=== PATIENT | male | born 1945 | race Caucasian/White ===

== ENCOUNTER → 2020-04-17 08:48 | Outpatient (BNV) | payer MEDICARE, SELFPAY | PROVIDERS: PCP Internal Medicine; Visit Provider Internal Medicine Medical Oncology | DX: C91.10 Chronic lymphocytic leukemia of B-cell type not having achieved remission (principal); Z85.46 Personal history of malignant neoplasm of prostate | CPT/HCPCS: 99212; 99213; 99214 ==

== ENCOUNTER 2020-10-13 08:35 | Outpatient (REF) | payer MEDICARE, SELFPAY ==
[2020-10-13 10:37] LABS: Hematocrit 39.6 % (42-52); Hemoglobin 12.8 g/dl (14.0-18.0); Mean Corpuscular HGB Conc 32.3 g/dl (31.0-36.0); Mean Corpuscular Hemoglobin 31.3 pg (27.0-33.0); Mean Corpuscular Volume 96.8 fL (80-98); Platelet Count 131 X10*3/uL (160-400); Red Blood Count 4.09 X10*6/uL (4.60-5.80); Red Cell Distribution Width 14.3 % (11.0-16.0)
[2020-10-13 10:47] LABS: WBC ABN SCTR FOR CBC 1
[2020-10-13 10:57] LABS: White Blood Count 31.4 X10*3/uL (4.8-10.8)
[2020-10-13 11:12] LABS: Alanine Aminotransferase 14 U/L (0-40); Albumin Level 3.8 g/dL (3.5-5.0); Alkaline Phosphatase 85 U/L (39-117); Anion Gap 11 (12-20); Aspartate Amino Transferase 19 U/L (5-37); Bilirubin Total 0.6 mg/dL (0.0-1.0); Blood Urea Nitrogen 18 mg/dL (9-16); Carbon Dioxide 28 mmol/L (22-29); Chloride 109 mmol/L (96-108); Cholesterol 169 mg/dL; Estimated Glomerular Filt Rate > 60; Glucose Fasting 99 mg/dL (60-99); HDL Cholesterol 32 mg/dL; LDL Cholesterol Calculated 94 mg/dl; Potassium 4.4 mmol/L (3.3-5.1); Sodium 144 mmol/L (135-145); Total Protein 6.2 g/dL (6.5-8.0); Triglycerides 218 mg/dL
[2020-10-13 11:18] LABS: PSA,Total (Free>4and<10) < 0.05 ng/mL (0.00-4.00); T4 Thyroxine 6.2 ug/dL (4.5-12.0); Thyroid Stimulating Hormone 4.36 uIU/mL (0.32-4.0)
[2020-10-13 11:31] LABS: Folate 18.2 ng/mL (> or = 4.0); Vitamin B12 263 pg/mL (200-900)
[2020-10-13 12:41] LABS: Band Neutrophils Percent 3 % (3-5); Basophils Abs Manual 0.3 X10*3/uL (0.0-0.3); Basophils Percent Manual 1 % (0-1); Eosinophils Absolute Manual 0.9 X10*3/UL (0.0-0.8); Eosinophils Percent Manual 3 % (0-4); Lymphocytes Absolute Manual 25.1 X10*3/uL (0.6-4.8); Lymphocytes Percent Manual 80 % (20-40); Monocytes Absolute Manual 0.3 X10*3/uL (0.0-1.2); Monocytes Percent Manual 1 % (2-11); Neutrophils Absolute Manual 4.7 X10*3/uL (2.2-7.9); Neutrophils Percent Manual 12 % (45-73)
[2020-10-13 12:42] LABS: Acanthocytes 1+ (0-2) /OIF; Platelet Estimate SLIGHTLY DECREASED (NORMAL); Platelet Morphology Comment NORMAL; RBC Morphology NOTED; Smudge Cells PRESENT
== END 2020-10-13 08:36 | disposition home or self-care (01) ==
LOC: HO.WFDLDS 08:35
PROVIDERS: Visit Provider Internal Medicine
DX: C91.10 Chronic lymphocytic leukemia of B-cell type not having achieved remission (principal); C61 Malignant neoplasm of prostate; E78.5 Hyperlipidemia, unspecified
CPT/HCPCS: 36415; 80053; 80061; 82607; 82746; 84153; 84436; 84443; 85007; 85027

== ENCOUNTER 2021-05-12 11:42 | Outpatient (REF) | payer MEDICARE, SELFPAY ==
[2021-05-12 13:56] LABS: Free T4 (Free Thyroxine) 0.76 ng/dL (0.71-1.85); Thyroid Stimulating Hormone 4.01 uIU/mL (0.32-4.0)
== END 2021-05-12 11:43 | disposition home or self-care (01) ==
LOC: HO.WFDLDS 11:42
PROVIDERS: Visit Provider Internal Medicine
DX: R94.6 Abnormal results of thyroid function studies (principal)
CPT/HCPCS: 36415; 84439; 84443

== ENCOUNTER 2021-07-07 08:43 | Outpatient (REF) | payer MEDICARE, SELFPAY ==
--- NOTE | 2021-07-07 08:50 | ECG_ITS ---
Test Reason : PREOP Blood Pressure : / mmHG Vent. Rate : 085 BPM Atrial Rate : 085 BPM P-R Int : 172 ms QRS Dur : 096 ms QT Int : 384 ms P-R-T Axes : 064 -39 057 degrees QTc Int : 456 ms Normal sinus rhythm Left axis deviation Abnormal ECG No previous ECGs available Referred By: Sharon Garcia Electronically Signed By:SURI SHEIKH MD
[2021-07-07 10:34] LABS: Hematocrit 38.2 % (42.0-52.0); Hemoglobin 12.5 g/dl (14.0-18.0); Mean Corpuscular HGB Conc 32.7 g/dl (31.0-36.0); Mean Corpuscular Hemoglobin 32.4 pg (27.0-33.0); Mean Platelet Volume 11.8 fL (9.4-12.4); Platelet Count 151 X10*3/uL (160-400); Red Blood Count 3.86 X10*6/uL (4.60-5.80); Red Cell Distribution Width 14.7 % (11.0-16.0)
[2021-07-07 10:35] LABS: Prothrombin Time 11.1 SEC (9.9-13.0)
[2021-07-07 10:38] LABS: Partial Thromboplastin Time 28.8 SEC (24.1-38.0)
[2021-07-07 10:46] LABS: WBC ABN SCTR FOR CBC 1
[2021-07-07 11:02] LABS: Alanine Aminotransferase 16 U/L (0-40); Albumin Level 3.8 g/dL (3.5-5.0); Alkaline Phosphatase 86 U/L (39-117); Anion Gap 16 (12-20); Aspartate Amino Transferase 22 U/L (5-37); Bilirubin Total 0.8 mg/dL (0.0-1.0); Blood Urea Nitrogen 14 mg/dL (9-16); Calcium 8.8 mg/dL (8.4-10.2); Carbon Dioxide 23 mmol/L (22-29); Chloride 109 mmol/L (96-108); Estimated Glomerular Filt Rate > 60; Glucose Random 125 mg/dL (60-115); Potassium 4.5 mmol/L (3.3-5.1); Sodium 143 mmol/L (135-145); Total Protein 6.4 g/dL (6.5-8.0)
[2021-07-07 13:03] LABS: White Blood Count 36.6 X10*3/uL (4.8-10.8)
[2021-07-07 13:08] LABS: Eosinophils Absolute Manual 0.4 X10*3/uL (0.0-0.4); Eosinophils Percent Manual 1 % (0-4); Lymphocytes Absolute Manual 30.7 X10*3/uL (1.2-4.9); Lymphocytes Percent Manual 84 % (20-40); Monocytes Absolute Manual 0.4 X10*3/uL (0.1-1.2); Monocytes Percent Manual 1 % (2-11); Neutrophils Percent Manual 14 % (45-73)
[2021-07-07 13:10] LABS: Platelet Estimate DECREASED (NORMAL)
[2021-07-07 13:11] LABS: RBC Morphology NOTED
[2021-07-07 13:12] LABS: Ovalocytes 1+ (5-14) /OIF; Tear Drop Cells 1+ (0-2) /OIF
[2021-07-07 13:13] LABS: Platelet Morphology Comment NORMAL
[2021-07-07 14:34] LABS: Band Neutrophils Percent 0 % (3-5); Neutrophils Absolute Manual 5.1 X10*3/uL (2.0-8.3)
== END 2021-07-07 08:44 | disposition home or self-care (01) ==
LOC: HO.LAB 08:43
PROVIDERS: PCP Internal Medicine; Visit Provider Nurse Practitioner Family
DX: Z01.818 Encounter for other preprocedural examination (principal); R03.0 Elevated blood-pressure reading, without diagnosis of hypertension
CPT/HCPCS: 36415; 80053; 85007; 85025; 85027; 85610; 85730; 93005

== ENCOUNTER 2021-09-30 10:40 | Outpatient (REF) | payer MEDICARE, SELFPAY ==
[2021-09-30 13:25] LABS: Immature Retic Fraction 21.1 % (2.3-13.4); Retic HGB Equivalent 37.6 pg (30.0-35.0); Reticulocyte Percent 2.8 % (0.5-1.8); Reticulocytes Absolute 0.087 X10*6/uL (0.026-0.095)
[2021-09-30 13:38] LABS: Cholesterol 162 mg/dL; HDL Cholesterol 32 mg/dL; Iron 94 mcg/dL (45-160); LDL Cholesterol Calculated 85 mg/dl; Percent Iron Saturation 29 % (15-50); Total Iron Binding Capacity 324 mcg/dL (228-428); Triglycerides 228 mg/dL; Unsaturated Iron Binding 230 ug/dL
[2021-09-30 13:55] LABS: Uric Acid 4.2 mg/dL (3.4-7.0)
[2021-09-30 14:01] LABS: Ferritin 221 ng/mL (20-250); Free T4 (Free Thyroxine) 0.88 ng/dL (0.71-1.85); PSA,Total (Free>4and<10) < 0.05 ng/mL (0.00-4.00); Thyroid Stimulating Hormone 5.06 uIU/mL (0.32-4.0)
[2021-09-30 14:24] LABS: Folate 15.7 ng/mL (> or = 4.0); Vitamin B12 211 pg/mL (200-900)
== END 2021-09-30 10:41 | disposition home or self-care (01) ==
LOC: HO.WFDLDS 10:40
PROVIDERS: Visit Provider Internal Medicine
DX: Z12.5 Encounter for screening for malignant neoplasm of prostate (principal); E78.00 Pure hypercholesterolemia, unspecified; R79.89 Other specified abnormal findings of blood chemistry; C61 Malignant neoplasm of prostate
CPT/HCPCS: 36415; 80061; 82607; 82728; 82746; 83540; 84153; 84439; 84443; 84550; 85045

== ENCOUNTER 2022-01-27 09:57 | Outpatient (REF) | payer MEDICARE, SELFPAY ==
[2022-01-27 12:44] LABS: Free T4 (Free Thyroxine) 0.88 ng/dL (0.71-1.85); Thyroid Stimulating Hormone 4.36 uIU/mL (0.32-4.0)
== END 2022-01-27 09:58 | disposition home or self-care (01) ==
LOC: HO.WFDLDS 09:57
PROVIDERS: Visit Provider Internal Medicine
DX: R94.6 Abnormal results of thyroid function studies (principal)
CPT/HCPCS: 36415; 84439; 84443

== ENCOUNTER → 2022-03-11 08:42 | Outpatient (BNVA) | payer MEDICARE, SELFPAY | PROVIDERS: PCP Internal Medicine; Referring Provider Internal Medicine; Visit Provider Surgery | DX: R22.42 Localized swelling, mass and lump, left lower limb (principal) | CPT/HCPCS: 99202 ==

== ENCOUNTER 2022-04-30 08:15 | Day surgery (SDC) | payer MEDICARE, SELFPAY ==
[2022-04-26 12:51] VITALS: BMI 41.8
[2022-04-30 08:37] VITALS: BP 157/96; PULSE 88; RESP 20; TEMP 36.1; O2SAT 97
--- NOTE | 2022-04-30 09:04 | ECG_ITS ---
Test Reason : preop Blood Pressure : / mmHG Vent. Rate : 087 BPM Atrial Rate : 087 BPM P-R Int : 186 ms QRS Dur : 102 ms QT Int : 386 ms P-R-T Axes : 027 -36 035 degrees QTc Int : 464 ms Normal sinus rhythm Left axis deviation Minimal voltage criteria for LVH, may be normal variant ( R in aVL ) Abnormal ECG When compared with ECG of 07-JUL-2021 08:53, No significant change was found Referred By: Julieth Monterroso Electronically Signed By:SURI SHEIKH MD
--- NOTE | 2022-04-30 09:19 | HO.ANESPROP2 ---
FORM[facility]LY [facility] Active Problems Active Problems: All Active Problems (Updated 03/11/22 @ 09:15 by Edson Modi MD) Subcutaneous mass of left lower extremity (Acute) Mass of left thigh (Acute) Vitamin B12 deficiency (Acute) History of knee replacement procedure of left knee (Acute) Annual physical exam (Acute) Pre-operative clearance (Acute) Blood pressure elevated without history of HTN (Acute) Osteoarthritis (Acute) Elevated TSH (Acute) Hypercholesterolemia (Acute) Obesity (BMI 30-39.9) (Acute) Chronic lymphocytic leukemia (Acute) Prostate cancer (Acute) Past Medical History Medical History (Updated 03/11/22 @ 09:15 by Edson Modi MD) Actinic keratosis Chronic lymphocytic leukemia Depression Diverticular disease Elevated PSA HTN (hypertension) Hypercholesterolemia 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) Obesity (BMI 30-39.9) Osteoarthritis Plantar fasciitis Prostate cancer Subcutaneous mass of left lower extremity Family History Family History Mother Cardiac disease Father Cirrhosis of liver Sister Neuropathy Hypertension Family history of problems with anesthesia: No Surgical History Surgical History H/O arthroscopic knee surgery H/O submandibular gland removal H/O toe surgery History of knee replacement procedure of left knee Hx of cholecystectomy History of Problems with Anesthesia: No Social History Social History Household Members: Spouse Housing: House Are you a primary laboratory animal care veterinarian to a significant other at home: No Do you presently have visiting nurse or other home services: No Alcohol intake: current Alcohol intake frequency: does not drink Patient Tobacco Use Status: Never used Tobacco e-Cigarette/Vaping Use: Never Used Second Hand Smoke Exposure: No Are you DNR?: No Advance Directives: No Advance Directives Information Provided: Yes Recently lost weight without trying: No Nutrition Risks: No Nutritional Risk service: Yes Current occupational status: retired Current occupation: [employer] Cognitive needs: Yes (walker/cane) Hearing needs: No Vision needs: Yes (glasses) Meds Allergies Allergy/AdvReac Type Severity Reaction Status Date / Time hives Allergy Intermediate chronic Uncoded 03/11/22 08:48 hives of unknown etiology Active Medications: Current Medications Lactated Ringer's (Lr) 1,000 mls @ 50 mls/hr IVCONT .Q20H [facility] Lactated Ringer's (Lr) 1,000 mls @ 50 mls/hr IVCONT .Q20H [facility] Home Medications Medication Instructions Recorded Confirmed Last Taken Type ergocalciferol (vitamin D2) 1,000 1,000 unit PO DAILY 04/17/20 04/26/22 Unknown History unit capsule garlic 2,000 mg PO DAILY 04/17/20 04/26/22 Unknown History vitamin B complex 1 cap PO DAILY 04/17/20 04/26/22 Unknown History Fish Oil 500 mg ONCE 04/23/21 04/26/22 Unknown History multivitamin 1 tab PO DAILY 10/07/21 04/26/22 Unknown History Exam Exam Date and Time: April 30, 2022 0919 Height,Weight and Vital Signs: Height 6 ft Weight 139.706 kg Last Vital Signs Temp 97 F 04/30/22 08:37 Pulse 88 04/30/22 08:37 Resp 20 04/30/22 08:37 BP 157/96 H 04/30/22 08:37 Pulse Ox 97 04/30/22 08:37 O2 Del Method 04/30/22 08:37 Airway Mallampati Class: III TM Dist: >3cm Neck ROM: Full Heart: rrr Lungs: cta bl Assessment and Plan Assessment Anesthesia Assessment: Anesthesia Plan Discussed and Chart Reviewed Final Anesthetic Review Family History of Problems with Anesthesia: No History of Problems with Anesthesia: No NPO: Yes ASA Class: III Final Preanesthetic Review: No Changes in Pt Med Stat, Meds/Allgs Chart Reviewed and Consent Obtained/Reviewed Patient Risk: Intermediate Procedure Risk: Intermediate Anesthetic Plan Anesthetic Plan: GA Disposition: Standard PACU
[2022-04-30] MEDS: Lactated Ringers 1,000 ML 50 ML IVCONT (09:25)
--- NOTE | 2022-04-30 10:33 | MHC.SHP ---
Pre-Procedural Eval Section A Date of Service: 04/30/22 Section B Chief Complaint: Localized swelling, mass and lump, left lower limb Details of Present Illness: has a mass on left medial thigh Relevant Social History: None Present Medications: see Short Stay Collaborative assessment Medical History: Significant History (CLL, HTN OA, hyperlipidemia) Allergies: Allergies Allergy/AdvReac Type Severity Reaction Status Date / Time hives Allergy Intermediate chronic Uncoded 03/11/22 08:48 hives of unknown etiology Review of Systems Sugical H&P ROS: Negative: Constitution, Cardiovascular, Respiratory, Neurological, Psychiatric, Hem-Onc, Allergic/Immunologic, Gastrointestinal, Genitourinary, Musculoskeletal, Integumentary, Endocrine and Eyes/Ears/Nose/Throat Exam Surgical H&P Exam: Normal: HEENT, Normal: Heart, Normal: Lungs, Normal: Abdomen, Normal: Skin and Normal: Neurological and Significant Findings: Extremities (mass on left medial thigh about 4cm) Plan Diagnosis/Plan: Unchanged I have reviewed the history and physical and performed a pertinent physical examination on my patient. No changes have occurred unless specified. Time Spent With Patient Time: Total time managing care of this patient today ____ minutes.
--- NOTE | 2022-04-30 10:48 | MHC.SHP ---
Pre-Procedural Eval Section A Date of Service: 04/30/22 Section B Chief Complaint: Localized swelling, mass and lump, left lower limb Details of Present Illness: subcutaneous mass, medial, 4 cm Relevant Social History: None Present Medications: see Short Stay Collaborative assessment Medical History: Significant History Allergies: Allergies Allergy/AdvReac Type Severity Reaction Status Date / Time hives Allergy Intermediate chronic Uncoded 03/11/22 08:48 hives of unknown etiology Plan I have reviewed the history and physical and performed a pertinent physical examination on my patient. No changes have occurred unless specified. Time Spent With Patient Time: Total time managing care of this patient today ____ minutes.
--- NOTE | 2022-04-30 11:17 | W.PM.OPN ---
Operative Note Operative Note Date of Service: 04/30/22 Narrative: Preop diagnosis: Subcutaneous mass, left thigh Postop diagnosis: The same, with a mass measuring about 3.5 cm in diameter, cystic with a thick capsule Procedure: Excision of large subcutaneous mass, left thigh Surgeon: Edson Modi MD promotions assistant sales marketing: TESSA Hernandez Patient is a 76-year-old male with a large continues mass on the left thigh, about 3.5 cm in diameter. He wanted to proceed with excision. I explained the technique of excision under MAC. He was aware of the risks, benefits, and alternatives. Was brought to the operating room and placed supine with the leg abducted to expose the medial thigh. The area of the mass was prepped and draped. A surgical time-out was done. Lidocaine 1% was used for local anesthesia. I made an incision on the skin overlying this mass using a blade 15. This was carried down with electrocautery through the full-thickness of the skin and subcutaneous fat until I visualized the mass. Sharply dissected the mass off of the rest of the subcutaneous layer. This was spherical in shape and appeared to be a cyst with a large capsule. I had to circumferentially dissect until I was able to deliver this mass. This measured 3.5 cm in diameter. This was sent as a specimen. I closed the subcutaneous layer with Dexon 3-0 interrupted sutures. Skin closure was reviewed nylon 3-0 simple interrupted sutures. The area was infiltrated with Marcaine 0.5% for postop old EMELI. Dressings were applied. The procedure was completed. The patient tolerated the procedure well. There were no immediate complications. Initial and final counts of sponges instruments were correct. Estimated blood loss was less than 5 cc. The patient was transferred to recovery room with stable vital signs.
[2022-04-30 11:35] VITALS: BP 128/59; PULSE 80; RESP 16; TEMP 36.3; O2SAT 99
[2022-04-30 11:50] VITALS: BP 133/63; PULSE 81; RESP 16; O2SAT 99
[2022-04-30 12:05] VITALS: BP 136/69; PULSE 83; RESP 16; TEMP 36.2; O2SAT 96
== END 2022-04-30 12:41 | disposition home or self-care (01) ==
PROVIDERS: PCP Internal Medicine; Visit Provider Surgery
PROC: (CPT 11406; principal; 2022-04-30 10:50)
DX: R22.42 Localized swelling, mass and lump, left lower limb (principal); C91.10 Chronic lymphocytic leukemia of B-cell type not having achieved remission; Z96.652 Presence of left artificial knee joint; L57.0 Actinic keratosis; I10 Essential (primary) hypertension; E78.00 Pure hypercholesterolemia, unspecified; C61 Malignant neoplasm of prostate; E66.9 Obesity, unspecified; Z68.41 Body mass index [BMI] 40.0-44.9, adult; Z90.49 Acquired absence of other specified parts of digestive tract; Z79.899 Other long term (current) drug therapy
CPT/HCPCS: 11406; 12032; 88304; 88305; 88341; 88342; 93005; J0690; J2250; J2795; J3010

== ENCOUNTER → 2022-05-11 13:48 | Outpatient (BNVA) | payer MEDICARE, SELFPAY | PROVIDERS: PCP Internal Medicine; Referring Provider Internal Medicine; Visit Provider Surgery | DX: C91.10 Chronic lymphocytic leukemia of B-cell type not having achieved remission (principal); C61 Malignant neoplasm of prostate | CPT/HCPCS: 99211 ==

== ENCOUNTER → 2022-05-13 12:43 | Outpatient (BNVA) | payer MEDICARE, SELFPAY | PROVIDERS: PCP Internal Medicine; Visit Provider Surgery | DX: Z13.89 Encounter for screening for other disorder (principal) | CPT/HCPCS: 99212 ==

== ENCOUNTER → 2022-05-27 10:26 | Outpatient (BNVA) | payer MEDICARE, SELFPAY | PROVIDERS: PCP Internal Medicine; Referring Provider Internal Medicine; Visit Provider Surgery | DX: R22.42 Localized swelling, mass and lump, left lower limb (principal) | CPT/HCPCS: 10021; 99212 ==

== ENCOUNTER → 2022-06-02 15:03 | Outpatient (BNVA) | payer MEDICARE, SELFPAY | PROVIDERS: PCP Internal Medicine; Visit Provider Surgery | DX: R22.42 Localized swelling, mass and lump, left lower limb (principal) | CPT/HCPCS: 99212 ==

== ENCOUNTER 2022-10-18 09:38 | Outpatient (REF) | payer MEDICARE, SELFPAY ==
[2022-10-18 12:07] LABS: Hematocrit 26.1 % (42.0-52.0); Hemoglobin 7.9 g/dl (14.0-18.0); Immature Retic Fraction 26.9 % (2.3-13.4); Mean Corpuscular HGB Conc 30.3 g/dl (31.0-36.0); Mean Corpuscular Hemoglobin 36.4 pg (27.0-33.0); Mean Platelet Volume 11.3 fL (9.4-12.4); Platelet Count 179 X10*3/uL (160-400); Red Blood Count 2.17 X10*6/uL (4.60-5.80); Red Cell Distribution Width 16.5 % (11.0-16.0); Retic HGB Equivalent 35.5 pg (30.0-35.0); Reticulocytes Absolute 0.151 X10*6/uL (0.026-0.095)
[2022-10-18 12:23] LABS: Alanine Aminotransferase 17 U/L (0-40); Albumin Level 3.7 g/dL (3.5-5.0); Alkaline Phosphatase 78 U/L (39-117); Anion Gap 16 (12-20); Aspartate Amino Transferase 25 U/L (5-37); Bilirubin Total 0.9 mg/dL (0.0-1.0); Blood Urea Nitrogen 16 mg/dL (9-16); Carbon Dioxide 22 mmol/L (22-29); Chloride 109 mmol/L (96-108); Cholesterol 118 mg/dL; Estimated Glomerular Filt Rate > 60; Glucose Random 139 mg/dL (60-115); HDL Cholesterol 27 mg/dL; Iron 109 mcg/dL (45-160); LDL Cholesterol Calculated 55 mg/dl; Percent Iron Saturation 39 % (15-50); Potassium 4.3 mmol/L (3.3-5.1); Sodium 143 mmol/L (135-145); Total Iron Binding Capacity 278 mcg/dL (228-428); Total Protein 6.4 g/dL (6.5-8.0); Triglycerides 184 mg/dL; Unsaturated Iron Binding 169 ug/dL
[2022-10-18 12:25] LABS: PSA,Total (Free>4and<10) < 0.10 ng/mL (0.00-4.00)
[2022-10-18 12:38] LABS: Folate 15.2 ng/mL (> or = 4.0); Mean Corpuscular Volume 120.3 fL (80.0-98.0); Vitamin B12 428 pg/mL (200-900); WBC ABN SCTR FOR CBC 1
[2022-10-18 12:42] LABS: Ferritin 268 ng/mL (20-250); Free T4 (Free Thyroxine) 0.76 ng/dL (0.71-1.85); Thyroid Stimulating Hormone 3.74 uIU/mL (0.32-4.0); White Blood Count 52.9 X10*3/uL (4.8-10.8)
[2022-10-18 13:10] LABS: Band Neutrophils Percent 0 % (3-5); Eosinophils Absolute Manual 0.5 X10*3/uL (0.0-0.4); Eosinophils Percent Manual 1 % (0-4); Lymphocytes Absolute Manual 48.1 X10*3/uL (1.2-4.9); Lymphocytes Percent Manual 91 % (20-40); Neutrophils Absolute Manual 4.2 X10*3/uL (2.0-8.3); Neutrophils Percent Manual 8 % (45-73)
[2022-10-18 13:11] LABS: Macrocytosis 2+ (15-30) /OIF; Platelet Estimate NORMAL (NORMAL); Platelet Morphology Comment NORMAL; RBC Morphology NOTED; Tear Drop Cells 2+ (3-5) /OIF
== END 2022-10-18 09:39 | disposition home or self-care (01) ==
LOC: HO.WFDLDS 09:38
PROVIDERS: Visit Provider Internal Medicine
DX: Z12.5 Encounter for screening for malignant neoplasm of prostate (principal); E78.00 Pure hypercholesterolemia, unspecified; C61 Malignant neoplasm of prostate
CPT/HCPCS: 36415; 80053; 80061; 82607; 82728; 82746; 83540; 84153; 84439; 84443; 85007; 85025; 85027; 85045

== ENCOUNTER 2022-10-22 09:53 | Outpatient (AMB) | payer MEDICARE, SELFPAY ==
[2022-10-22 10:03] VITALS: BP 124/70; PULSE 82; O2SAT 96; BMI 42.4
--- NOTE | 2022-10-22 10:03 | A.OFFPC_ITS ---
Vital Signs 10/22/22 10:03 Height 6 ft Weight 313 lb BMI 42.4 BP 124/70 Blood Pressure Location Lt brachial Position Sitting Pulse 82 Pulse Source Pulse Oximeter Pulse Oximetry (%) 96 Oxygen Delivery Method Room Air Intake Visit Reasons: PE Allergies hives Allergy (Intermediate, Uncoded 10/22/22 10:04) chronic hives of unknown etiology Medication List - Last Reconciled 10/22/22 by Charmaine Salamanca MD cyanocobalamin (vitamin B-12) (Vitamin B-12) 1,000 mcg PO DAILY ergocalciferol (vitamin D2) 1,000 units PO DAILY [Fish Oil 500 mg ONCE] garlic 2,000 mg PO DAILY multivitamin 1 tab PO DAILY Tobacco use date assessed: 10/22/22 Fall risk assessment: No Falls in past year Last assessed Fall Risk: 10/22/22 Dental Screening Dental Screen Date: 10/22/22 Did you have a dental visit in the last 12 months?: Yes Did you have a dental problem in the last 6 months where you did not have access to dental care?: No Was dental information given to patient?: Patient has dentist HPI PE HPI Details 76-year-old obese male with CLL hypercholesterolemia elevated TSH coming in for physical exam p. Last seen January 2022. Patient has a lesion on the left medial thigh that the surgeon is following up on at aspirating. Max blair also follows up Hematology Oncology for the diagnosis of CLL and prostate cancer completed radiotherapy for prostate cancer as for the CLL continuing to monitor if nodes and large can retreat with rituximab PFSH Medical History Actinic keratosis Chronic lymphocytic leukemia Depression Diverticular disease Elevated PSA HTN (hypertension) Hypercholesterolemia 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) Obesity (BMI 30-39.9) Osteoarthritis Plantar fasciitis Prostate cancer Subcutaneous mass of left lower extremity Surgical History H/O arthroscopic knee surgery H/O removal of cyst H/O submandibular gland removal H/O toe surgery History of knee replacement procedure of left knee Hx of biopsy Hx of cholecystectomy Family History Mother Cardiac disease Father Cirrhosis of liver Sister Neuropathy Hypertension Other No family history of cancer Social History (Updated 10/22/22 @ 11:06 by Charmaine Salamanca MD) Household Members: Spouse Housing: House Are you a primary resident care manager to a significant other at home: No Do you presently have visiting nurse or other home services: No Alcohol intake: current Alcohol intake frequency: does not drink Patient Tobacco Use Status: Never used Tobacco e-Cigarette/Vaping Use: Never Used Second Hand Smoke Exposure: No service: Yes Current occupational status: retired Current occupation: Formerly [employer] Cognitive needs: Yes (walker/cane) Hearing needs: No Vision needs: Yes (glasses) Questionnaire PHQ-9 Over the last 2 weeks, how often have you been bothered by any of the following problems? 1. Little interest or pleasure in doing things: not at all 2. Feeling down, depressed, or hopeless: not at all 3. Trouble falling or staying asleep, or sleeping too much: not at all 4. Feeling tired or having little energy: not at all 5. Poor appetite or overeating: not at all 6. Feeling bad about yourself - or that you are a failure or have let yourself or your family down: not at all 7. Trouble concentrating on things, such as reading the newspaper or watching television: not at all 8. Moving or speaking so slowly that other people could have noticed. Or the opposite - being so fidgety or restless that you have been moving around a lot more than usual: not at all 9. Thoughts that you would be better off or of hurting yourself in some way: not at all Total score: 0 Depression Screening Interpretation: Negative Source: Developed by Drs. James Paulino, Mimi Lezama, Andrae Olivera and colleagues, with an educational farooq from [employer]. Thrive Questionnaire Date Thrive assessed: 10/22/22 I am a: Patient What is your living situation today?: I have a steady place to live Within the past 12 months, did the food you bought not last and you didn't have the money to get more?: Never true Within the past 12 months, did you worry whether your food would run out before you got money to buy more?: Never true Do you have trouble paying for medicines?: No Do you have trouble getting transportation to medical appointments?: No Do you have trouble paying your heating and electricity bill?: No Do you have trouble taking care of your child, family member or friend?: No Do you have trouble with day-to-day activities such as bathing, preparing meals, shopping, managing finances, etc.?: No Are you currently unemployed and looking for a job?: No Are you interested in more education?: No Currently or been in a relationship where the following occur: no concerns reported AUDIT C Alcohol Use Questionnaire (AUDIT-C) 1. How often do you have a drink containing alcohol?: Monthly or less 2. How many drinks containing alcohol do you have on a typical day when you are drinking?: 1 or 2 3. How often do you have six or more drinks on one occasion?: Never Total Score: 1 LUBA-7 AMB Questionnaire LUBA-7 Date LUBA - 7 assessed: 10/22/22 Feeling nervous, anxious, or on edge: 0 = Not at all Not being able to stop or control worryin = Not at all Worrying too much about different things: 0 = Not at all Trouble relaxin = Not at all Being so restless that it is hard to sit still: 0 = Not at all Becoming easily annoyed or irritable: 0 = Not at all Feeling afraid as if something awful might happen: 0 = Not at all Total LUBA-7 score (0-4 normal; 5-9 mild; 10-14 moderate; 15-21 severe): 0 Source: Developed by Drs. James Paulino, Mimi Lezama, Andrae Olivera and colleagues, with an educational farooq from [employer]. Review of Systems Const Denies poor appetite and Denies weakness Eyes Denies no additional complaints ENT Reports Normal hearing present, Denies dizziness, Denies nasal congestion, Denies tinnitus and Denies sore throat Card Denies chest pain, Denies syncope, Denies rapid heart rate and Denies dyspnea Resp Denies cough and Denies dyspnea GI Denies change in stool character, Reports constipation, Denies diarrhea, Denies nausea and Denies vomiting Denies dysuria and Denies urinary frequency Neuro Reports Normal hearing present, Denies confusion, Denies dizziness, Denies syncope and Denies weakness Psych Denies confusion Physical exam (Primary Care) Vital Signs: Last Vital Signs Pulse 82 10/22/22 10:03 BP 124/70 10/22/22 10:03 Pulse Ox 96 10/22/22 10:03 Oxygen Delivery Method Room Air 10/22/22 10:03 Care Plan Goal for BP management: guaiac negative no prostate Next steps: Side of the neck has 4 x 3 cm mass left upper thigh a medial tennis ball size mass BMI result Body Mass Index 42.4 Tobacco/Smoking Status: Tobacco use Status Tobacco use date assessed 10/22/22 10/22/22 10:10 Patient Tobacco Use Status Never used Tobacco 10/22/22 11:06 e-Cigarette/Vaping Use Never Used 10/22/22 11:06 PHQ-9: PHQ-9 Score PHQ-9: Total score 0 10/22/22 10:58 Depression Screening Interpretation: Negative Thrive Assessment: Date of Thrive Assessment Date Thrive assessed 10/22/22 10/22/22 10:10 Currently or been in a relationship where the following occur: no concerns reported Const General: No confusion Orientation/consciousness: No confusion HENMT Head: Yes normocephalic Ears: external ears normal and TM's normal bilaterally Face and sinus: Yes normal facial exam Mouth: moist mucous membranes Throat: Yes tonsils normal Eyes Conjunctivae: conjunctivae normal Pupils: Equal, round and reactive pupils present and Pupil accommodation reflex normal Direct Ophthalmoscopy: normal light reflex Neck Neck: No lymphadenopathy Thyroid: Thyroid normal Chest Chest palpation & inspection: normal inspection of the chest Resp Effort & Inspection: normal respiratory effort and no audible wheezes Auscultation: clear to auscultation bilaterally, no crackles, no wheezes and lung sounds not diminished Cardio Rate: regular rate Rhythm: regular rhythm Peripheral pulses: radial pulses present and dorsalis pedis present GI Palpation (GI): no masses Auscultation: normal bowel sounds and normoactive bowel sounds Male General Exam: Yes normal external exam Skin General skin exam: no rashes or lesions noted Rashes: no rashes Neuro General: No confusion Cranial nerves: Yes Equal, round and reactive pupils present and Yes Normal hearing present Cognition (Neuro): normal cognition Gait exam (Neuro): Normal gait present Motor exam (neuro): 5/5 motor strength present throughout Deep tendon reflexes (DTR's): Right brachioradialis reflex intensity grade: 2+, Left brachioradialis reflex intensity grade: 2+, Right patellar reflex intensity grade: 2+ and Left patellar reflex intensity grade: 2+ Extrem General: No edema Results AMB Hemoglobin A1c AMB Hemoglobin A1c 4.1 % Last Edit by Jayleen Nava CMA on 10/22/22 11 :11 Assessment and Plan Assessment & Plan (1) Annual physical exam: Code(s): Z00.00 - Encounter for general adult medical examination without abnormal findings (2) Chronic lymphocytic leukemia: Comment: August 2013 flow cytometry, WBC 2 0 0 a Code(s): C91.10 - Chronic lymphocytic leukemia of B-cell type not having achieved remission Plan: Patient is being followed up by hematology oncology (3) Elevated blood sugar: Code(s): R73.9 - Hyperglycemia, unspecified Plan: Decrease the amount of carbohydrate intake, pasta, bread, rice and potatoes are all sugar and that is aside from all the sweet stuff, remember that fruits are good but they are Sweet also. (4) Mass of left thigh: Code(s): R22.42 - Localized swelling, mass and lump, left lower limb Plan: Patient is being followed up by the surgeon draining it intermittently (5) Hypercholesterolemia: Code(s): E78.00 - Pure hypercholesterolemia, unspecified Plan: Avoid fried foods, chicken skin, eggs, butter margarine, pastries and meat. Be it pork or beef they have a lot of cholesterol LDL goal of less than 130 and triglyceride of less than 150 (6) Obesity (BMI 30-39.9): Code(s): E66.9 - Obesity, unspecified Plan: Diet and exercise (7) Skin cancer: Code(s): C44.90 - Unspecified malignant neoplasm of skin, unspecified (8) Encounter for removal of sutures: Code(s): Z48.02 - Encounter for removal of sutures Plan: RESIDUAL SUTURE in the gluteal area x 2 Orders: Orders AMB Hemoglobin A1c Today Z13.9 - Encounter for screening, unspecified Vitamin B12 and Folate 6 Months R73.9 - Hyperglycemia, unspecified Comprehensive Met. Panel 6 Months R73.9 - Hyperglycemia, unspecified Lipid Panel 6 Months E78.00 - Pure hypercholesterolemia, unspecified Free T4 (Free Thyroxine) 6 Months R73.9 - Hyperglycemia, unspecified Thyroid Stimulating Hormone 6 Months R73.9 - Hyperglycemia, unspecified Complete Blood Count Auto Diff 6 Months R73.9 - Hyperglycemia, unspecified Coding Level of Care Code Est Pt Prev Care >65y(42219) Diagnoses Annual physical exam Z00.00 Chronic lymphocytic leukemia C91.10 Elevated blood sugar R73.9 Mass of left thigh R22.42 Hypercholesterolemia E78.00 Obesity (BMI 30-39.9) E66.9 Skin cancer C44.90 Encounter for removal of sutures Z48.02
== END 2022-10-22 11:30 | disposition home or self-care (01) ==
PROVIDERS: PCP Internal Medicine; Visit Provider Internal Medicine
DX: Z00.00 Encounter for general adult medical examination without abnormal findings (principal); R73.9 Hyperglycemia, unspecified; E66.9 Obesity, unspecified; Z68.41 Body mass index [BMI] 40.0-44.9, adult; E78.00 Pure hypercholesterolemia, unspecified
CPT/HCPCS: 83036; 99397

== ENCOUNTER 2022-11-10 14:47 | Outpatient (AMB) | payer MEDICARE, SELFPAY ==
--- NOTE | 2022-11-10 15:16 | A.OFFVIS_ITS ---
Intake Vital Signs 11/10/22 15:22 Height 6 ft BP 140/66 H Blood Pressure Location Rt brachial Position Sitting Pulse 107 H Intake Visit Reasons: Subcutaneous mass of left lower extremity Intake Note: This patient presents for an assessment for possible aspiratiion for subcutaneous mass of the left lower extremity. Patient c/o; reports no changes. 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 The path report had shown findings consistent with his history of CLL. He also had a seroma that time requiring aspiration. He has been following Dr. Oliva for his CLL. He had been on rituximab chery atment before. He says that he has again has this lump on the left thigh excision site. He denies any pain or any tenderness. He says that this does not bother him. [facility] Medical History Actinic keratosis Chronic lymphocytic leukemia Depression Diverticular disease Elevated PSA HTN (hypertension) Hypercholesterolemia 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) Obesity (BMI 30-39.9) Osteoarthritis Plantar fasciitis Prostate cancer Subcutaneous mass of left lower extremity Surgical History H/O arthroscopic knee surgery H/O removal of cyst H/O submandibular gland removal H/O toe surgery History of knee replacement procedure of left knee Hx of biopsy Hx of cholecystectomy Family History Mother Cardiac disease Father Cirrhosis of liver Sister Neuropathy Hypertension Other No family history of cancer Social History Household Members: Spouse Housing: House Are you a primary care provider to a significant other at home: No Do you presently have visiting nurse or other home services: No Alcohol intake: current Alcohol intake frequency: does not drink Patient Tobacco Use Status: Never used Tobacco e-Cigarette/Vaping Use: Never Used Second Hand Smoke Exposure: No service: Yes Current occupational status: retired Current occupation: [employer] Cognitive needs: Yes (walker/cane) Hearing needs: No Vision needs: Yes (glasses) Review of Systems Const Denies chills and Denies fever(s) Card Denies chest pain, Denies dyspnea and Denies dyspnea on exertion Resp Denies cough, Denies dyspnea and Denies dyspnea on exertion GI Denies hematochezia and Denies change in bowel habits Denies hematuria and Denies difficulty urinating Musc Reports back pain, Reports arthralgias and Reports limited range of motion Neuro Denies focal weakness and Denies convulsions Psych Denies depression and Denies mood swings Physical Exam Vital Signs: Last Vital Signs Pulse 107 H 11/10/22 15:22 BP 140/66 H 11/10/22 15:22 Const General: comfortable and no acute distress Resp Effort & Inspection: normal respiratory effort Cardio Rate: regular rate GI Palpation (GI): Soft to palpation and not firm Extrem Other: Thigh vague mass, about 4 cm in diameter, nonfluctuant, non boggy, nontender, no cellulitis Assessment & Plan Assessment & Plan (1) Mass of left thigh: Code(s): R22.42 - Localized swelling, mass and lump, left lower limb Plan: This is likely part of his CLL based on his previous biopsy. I will not aspirate this at this time. I told him that he may benefit from chemotherapy control his CLL. He is to follow-up with Dr. Oliva therefore. No further surgeries plan for this mass for now. Coding Level of Care Code Est Pt Level 3 (69949) Diagnoses Mass of left thigh R22.42
[2022-11-10 15:22] VITALS: BP 140/66; PULSE 107
== END 2022-11-10 15:29 | disposition home or self-care (01) ==
PROVIDERS: PCP Internal Medicine; Visit Provider Surgery
DX: R22.42 Localized swelling, mass and lump, left lower limb (principal)
CPT/HCPCS: 99213

== ENCOUNTER → 2022-11-10 14:47 | Outpatient (BNVA) | payer MEDICARE, SELFPAY | PROVIDERS: PCP Internal Medicine; Visit Provider Surgery | DX: R22.42 Localized swelling, mass and lump, left lower limb (principal) | CPT/HCPCS: 99212 ==

== ENCOUNTER 2022-12-20 09:30 | Outpatient (REF) | payer MEDICARE, SELFPAY ==
[2022-12-20 11:46] LABS: Hematocrit 33.4 % (42.0-52.0); Hemoglobin 9.6 g/dl (14.0-18.0); Mean Corpuscular HGB Conc 28.7 g/dl (31.0-36.0); Mean Corpuscular Hemoglobin 33.6 pg (27.0-33.0); Mean Platelet Volume 11.6 fL (9.4-12.4); Platelet Count 155 X10*3/uL (160-400); Red Blood Count 2.86 X10*6/uL (4.60-5.80); Red Cell Distribution Width 15.5 % (11.0-16.0)
[2022-12-20 11:49] LABS: Mean Corpuscular Volume 116.8 fL (80.0-98.0); WBC ABN SCTR FOR CBC 1
[2022-12-20 12:05] LABS: Alanine Aminotransferase 16 U/L (0-40); Albumin Level 3.8 g/dL (3.5-5.0); Alkaline Phosphatase 76 U/L (39-117); Anion Gap 14 (12-20); Aspartate Amino Transferase 19 U/L (5-37); Bilirubin Total 0.7 mg/dL (0.0-1.0); Blood Urea Nitrogen 13 mg/dL (9-16); Calcium 9.3 mg/dL (8.4-10.2); Carbon Dioxide 27 mmol/L (22-29); Chloride 106 mmol/L (96-108); Estimated Glomerular Filt Rate > 60; Glucose Random 133 mg/dL (60-115); Lactate Dehydrogenase 219 U/L (118-273); Potassium 4.4 mmol/L (3.3-5.1); Sodium 143 mmol/L (135-145); Total Protein 6.7 g/dL (6.5-8.0)
[2022-12-20 12:22] LABS: Band Neutrophils Percent 0 % (3-5); Lymphocytes Absolute Manual 117.1 X10*3/uL (1.2-4.9); Lymphocytes Percent Manual 96 % (20-40); Neutrophils Absolute Manual 4.9 X10*3/uL (2.0-8.3); Neutrophils Percent Manual 4 % (45-73)
[2022-12-20 12:23] LABS: Platelet Estimate NORMAL (NORMAL); Platelet Morphology Comment NORMAL; RBC Morphology NORMAL; Smudge Cells PRESENT
== END 2022-12-20 09:31 | disposition home or self-care (01) ==
LOC: HO.WFDLDS 09:30
PROVIDERS: Visit Provider Internal Medicine Medical Oncology
DX: C61 Malignant neoplasm of prostate (principal); C91.10 Chronic lymphocytic leukemia of B-cell type not having achieved remission
CPT/HCPCS: 36415; 80053; 83615; 85007; 85027

== ENCOUNTER 2023-03-08 09:39 | Outpatient (REF) | payer MEDICARE, SELFPAY ==
--- NOTE | ~2023-03-08 | US_ITS ---
EXAMINATION: US VENOUS WITH DOPPLER UPPER EXTREMITY, RIGHT CLINICAL INFORMATION: Pain, bruising and swelling of the right upper arm COMPARISON: None available. TECHNIQUE: Ultrasound of the upper extremity is performed using compression sonography and color and pulse Doppler flow with assessment of augmentation of flow. There is also imaging and Doppler assessment of the jugular and subclavian veins. Spectral analysis with color-flow imaging is performed. FINDINGS: Respiratory variation and normal compression are noted throughout the upper extremity including the brachial, basilic, cephalic and radial and ulnar veins. There is normal flow in the internal jugular, subclavian and axillary veins. There is no visible deep or superficial thrombophlebitis. US/US venous duplex UE RT IMPRESSION: No DVT demonstrated in the right upper extremity.
== END 2023-03-08 09:40 | disposition home or self-care (01) ==
LOC: HO.US 09:39
PROVIDERS: PCP Internal Medicine; Visit Provider Internal Medicine Medical Oncology
DX: M79.89 Other specified soft tissue disorders (principal)
CPT/HCPCS: 93971

== ENCOUNTER 2023-03-24 09:04 | Outpatient (REF) | payer MEDICARE, SELFPAY ==
[2023-03-24 11:18] LABS: Hemoglobin 11.9 g/dl (14.0-18.0); Mean Corpuscular HGB Conc 31.3 g/dl (31.0-36.0); Mean Corpuscular Hemoglobin 30.4 pg (27.0-33.0); Mean Corpuscular Volume 96.9 fL (80.0-98.0); Mean Platelet Volume 11.6 fL (9.4-12.4); Platelet Count 181 X10*3/uL (160-400); Red Blood Count 3.92 X10*6/uL (4.60-5.80)
[2023-03-24 12:01] LABS: WBC ABN SCTR FOR CBC 1
[2023-03-24 12:03] LABS: White Blood Count 53.3 X10*3/uL (4.8-10.8)
[2023-03-24 13:06] LABS: Band Neutrophils Percent 2 % (3-5); Lymphocytes Percent Manual 92 % (20-40); Metamyelocytes Absolute 0.5 X10*3/uL; Metamyelocytes Percent 1 %; Monocytes Absolute Manual 0.5 X10*3/uL (0.1-1.2); Monocytes Percent Manual 1 % (2-11); Neutrophils Absolute Manual 3.2 X10*3/uL (2.0-8.3); Neutrophils Percent Manual 4 % (45-73); Platelet Estimate NORMAL (NORMAL); Platelet Morphology Comment NORMAL; RBC Morphology NORMAL; Smudge Cells PRESENT
== END 2023-03-24 09:05 | disposition home or self-care (01) ==
LOC: HO.WFDLDS 09:04
PROVIDERS: Visit Provider Internal Medicine
DX: E78.00 Pure hypercholesterolemia, unspecified (principal); R73.9 Hyperglycemia, unspecified
CPT/HCPCS: 36415; 80053; 80061; 82607; 82746; 84439; 84443; 85007; 85025; 85027

== ENCOUNTER 2023-03-30 09:30 | Outpatient (AMB) | payer MEDICARE, SELFPAY ==
[2023-03-30 09:48] VITALS: BP 148/82; PULSE 75; O2SAT 96; BMI 42.7
--- NOTE | 2023-03-30 09:48 | A.OFFPC_ITS ---
Vital Signs 03/30/23 09:48 Height 6 ft Weight 315 lb BMI 42.7 BP 148/82 H Blood Pressure Location Lt brachial Position Sitting Pulse 75 Pulse Source Pulse Oximeter Pulse Oximetry (%) 96 Oxygen Delivery Method Room Air Intake Visit Reasons: 6 month f/u, rash/redness on right arm Allergies hives Allergy (Intermediate, Uncoded 03/30/23 09:58) chronic hives of unknown etiology Tobacco use date assessed: 03/30/23 Fall risk assessment: No Falls in past year Last assessed Fall Risk: 03/30/23 Dental Screening Dental Screen Date: 03/30/23 Did you have a dental visit in the last 12 months?: Yes Did you have a dental problem in the last 6 months where you did not have access to dental care?: No Was dental information given to patient?: Patient has dentist HPI 6 month f/u HPI Details 77-year-old morbidly obese male with CLL , prostate cancer elevated blood sugar hypercholesterolemia coming in for follow-up. Last seen in October for complete physical. Colonoscopy is up-to-date. Patient continues to follow- up with Hematology-Oncology seen 03/08/2023 concern about the cystic lesion on the left thigh and considering radiation as for the prostate cancer seeing Urology had gold seed implant May 2016. Patient had some right upper arm bruising and had an ultrasound done revealing no DVT. Patient also had some notes from surgeon November 10 has had excision of the subcutaneous mass in the left lower extremity April 2022 showing consistency with CLL PFSH Medical History Actinic keratosis Chronic lymphocytic leukemia Depression Diverticular disease Elevated PSA HTN (hypertension) Hypercholesterolemia 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) Obesity (BMI 30-39.9) Osteoarthritis Plantar fasciitis Prostate cancer Subcutaneous mass of left lower extremity Surgical History H/O arthroscopic knee surgery H/O removal of cyst H/O submandibular gland removal H/O toe surgery History of knee replacement procedure of left knee Hx of biopsy Hx of cholecystectomy Family History Mother Cardiac disease Father Cirrhosis of liver Sister Neuropathy Hypertension Other No family history of cancer Social History Household Members: Spouse Housing: House Are you a primary elderly caregiver to a significant other at home: No Do you presently have visiting nurse or other home services: No Alcohol intake: current Alcohol intake frequency: does not drink Patient Tobacco Use Status: Never used Tobacco e-Cigarette/Vaping Use: Never Used Second Hand Smoke Exposure: No service: Yes Current occupational status: retired Current occupation: [employer] Cognitive needs: Yes (walker/cane) Hearing needs: No Vision needs: Yes (glasses) Questionnaire PHQ-9 Over the last 2 weeks, how often have you been bothered by any of the following problems? 1. Little interest or pleasure in doing things: not at all 2. Feeling down, depressed, or hopeless: not at all 3. Trouble falling or staying asleep, or sleeping too much: not at all 4. Feeling tired or having little energy: not at all 5. Poor appetite or overeating: not at all 6. Feeling bad about yourself - or that you are a failure or have let yourself or your family down: not at all 7. Trouble concentrating on things, such as reading the newspaper or watching television: not at all 8. Moving or speaking so slowly that other people could have noticed. Or the opposite - being so fidgety or restless that you have been moving around a lot more than usual: not at all 9. Thoughts that you would be better off or of hurting yourself in some way: not at all Total score: 0 Depression Screening Interpretation: Negative Depression Screening Done: Yes Source: Developed by Drs. James Paulino, Mimi Lezama, Andrae Olivera and colleagues, with an educational farooq from [employer]. Thrive Questionnaire Date Thrive assessed: 03/30/23 I am a: Patient What is your living situation today?: I have a steady place to live Within the past 12 months, did the food you bought not last and you didn't have the money to get more?: Never true Within the past 12 months, did you worry whether your food would run out before you got money to buy more?: Never true Do you have trouble paying for medicines?: No Do you have trouble getting transportation to medical appointments?: No Do you have trouble paying your heating and electricity bill?: No Do you have trouble taking care of your child, family member or friend?: No Do you have trouble with day-to-day activities such as bathing, preparing meals, shopping, managing finances, etc.?: No Are you currently unemployed and looking for a job?: No Are you interested in more education?: No Currently or been in a relationship where the following occur: no concerns reported AUDIT C Alcohol Use Questionnaire (AUDIT-C) 1. How often do you have a drink containing alcohol?: Monthly or less 2. How many drinks containing alcohol do you have on a typical day when you are drinking?: 1 or 2 3. How often do you have six or more drinks on one occasion?: Never Total Score: 1 LUBA-7 AMB Questionnaire LUBA-7 Date LUBA - 7 assessed: 03/30/23 Feeling nervous, anxious, or on edge: 0 = Not at all Not being able to stop or control worryin = Not at all Worrying too much about different things: 0 = Not at all Trouble relaxin = Not at all Being so restless that it is hard to sit still: 0 = Not at all Becoming easily annoyed or irritable: 0 = Not at all Feeling afraid as if something awful might happen: 0 = Not at all Total LUBA-7 score (0-4 normal; 5-9 mild; 10-14 moderate; 15-21 severe): 0 Source: Developed by Drs. James Paulino, Mimi Lezama, Andrae Olivera and colleagues, with an educational farooq from [employer]. Physical exam (Primary Care) Vital Signs: Last Vital Signs Pulse 75 03/30/23 09:48 BP 148/82 H 03/30/23 09:48 Pulse Ox 96 03/30/23 09:48 Oxygen Delivery Method Room Air 03/30/23 09:48 BMI result Body Mass Index 42.7 Tobacco/Smoking Status: Tobacco use Status Tobacco use date assessed 03/30/23 03/30/23 10:04 Patient Tobacco Use Status Never used Tobacco 03/30/23 09:48 e-Cigarette/Vaping Use Never Used 03/30/23 09:48 PHQ-9: PHQ-9 Score PHQ-9: Total score 0 03/30/23 10:04 Depression Screening Interpretation: Negative Thrive Assessment: Date of Thrive Assessment Date Thrive assessed 03/30/23 03/30/23 10:04 Currently or been in a relationship where the following occur: no concerns reported Const General: alert; No acute distress Eyes Conjunctivae: conjunctivae normal Resp Auscultation: clear to auscultation bilaterally Cardio Rate: regular rate Rhythm: regular rhythm GI Inspection: Yes normal to inspection Extrem General: Yes normal to inspection and No edema Assessment and Plan Assessment & Plan (1) Chronic lymphocytic leukemia: Comment: August 2013 flow cytometry, WBC 2 0 0 a Code(s): C91.10 - Chronic lymphocytic leukemia of B-cell type not having achieved remission Plan: Patient continues to follow-up with Hematology-Oncology on chemotherapy left thigh mass proven CLL after excision considering radiation therapy (2) Prostate cancer: Comment: January 2016 Dr. Thomas baires hormonal and radiation therapy with gold seed placement May 2016 Code(s): C61 - Malignant neoplasm of prostate Plan: Continue to follow-up with PSA testing. (3) Obesity (BMI 30-39.9): Code(s): E66.9 - Obesity, unspecified Plan: Diet and exercise (4) Hypercholesterolemia: Code(s): E78.00 - Pure hypercholesterolemia, unspecified Plan: Avoid fried foods, chicken skin, eggs, butter margarine, pastries and meat. Be it pork or beef they have a lot of cholesterol LDL goal of less than 130 and triglyceride of less than 150 (5) Mass of left thigh: Code(s): R22.42 - Localized swelling, mass and lump, left lower limb Plan: Patient had excision April proven CLL considering radiation from Oncology (6) Impaired fasting blood sugar: Code(s): R73.01 - Impaired fasting glucose Plan: Decrease the amount of carbohydrate intake, pasta, bread, rice and potatoes are all sugar and that is aside from all the sweet stuff, remember that fruits are good but they are Sweet also. Will continue to monitor (7) Peripheral vascular disease: Code(s): I73.9 - Peripheral vascular disease, unspecified Plan: When sitting down elevate the legs, exercise, and support stockings discussed about stockings with support Coding Level of Care Code Est Pt Level 4 (61049) Diagnoses Chronic lymphocytic leukemia C91.10 Prostate cancer C61 Obesity (BMI 30-39.9) E66.9 Hypercholesterolemia E78.00 Mass of left thigh R22.42 Impaired fasting blood sugar R73.01 Peripheral vascular disease I73.9
== END 2023-03-30 11:11 | disposition home or self-care (01) ==
PROVIDERS: PCP Internal Medicine; Visit Provider Internal Medicine
DX: I73.9 Peripheral vascular disease, unspecified (principal); C91.10 Chronic lymphocytic leukemia of B-cell type not having achieved remission; C61 Malignant neoplasm of prostate; Z68.38 Body mass index [BMI] 38.0-38.9, adult; E66.9 Obesity, unspecified; E78.00 Pure hypercholesterolemia, unspecified; R22.42 Localized swelling, mass and lump, left lower limb; R73.01 Impaired fasting glucose
CPT/HCPCS: 99214

== ENCOUNTER 2023-05-10 11:12 | Outpatient (AMB) | payer MEDICARE, SELFPAY ==
--- NOTE | 2023-05-10 11:34 | A.OFFVIS_ITS ---
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 Pt states it started when he started chemotherapy in November 2022 and each month the discoloration has moved up his arm by about 2 inches per month or so. States no pain or discomfort. 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 He has a diagnosis of CLL and prostate cancer which he is receiving chemotherapy for. He reports that when the [place] move therapy originally started he did have a small trash can fall on his hand but does not explain the extreme swelling and bruising that has been going on. He does report that it is progressively traveling up the arm and is at the level of the elbow. Denies any pain discomfort of that upper extremity. He also reports no significant itching of that arm as well. Now presents for vascular evaluation. [facility] Medical History Subcutaneous mass of left lower extremity Diverticular disease Depression Obesity (BMI 30-39.9) Chronic lymphocytic leukemia Plantar fasciitis Actinic keratosis Osteoarthritis Elevated PSA 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) Hypercholesterolemia HTN (hypertension) Prostate cancer Surgical History H/O removal of cyst Hx of biopsy History of knee replacement procedure of left knee H/O toe surgery H/O submandibular gland removal H/O arthroscopic knee surgery Hx of cholecystectomy Family History Mother Cardiac disease Father Cirrhosis of liver Sister Neuropathy Hypertension Other No family history of cancer Social History Household Members: Spouse Housing: House Are you a primary care program director to a significant other at home: No Do you presently have visiting nurse or other home services: No Alcohol intake: current Alcohol intake frequency: does not drink Patient Tobacco Use Status: Never used Tobacco e-Cigarette/Vaping Use: Never Used Second Hand Smoke Exposure: No service: Yes Current occupational status: retired Current occupation: [employer] Cognitive needs: Yes (walker/cane) Hearing needs: No Vision needs: Yes (glasses) Review of Systems Const All systems reviewed & are unremarkable except as noted in HPI and below Reports no additional complaints ENT Reports Normal hearing present Card Denies chest pain, Denies chest pain at rest, Denies chest pain with activity and Denies pedal edema Resp Denies cough GI Denies abdominal pain Musc Denies abnormal gait, Denies muscle cramps and Denies radiating pain into limb Skin/Breast Denies skin ulcer and Denies wounds Neuro Reports Normal hearing present and Denies abnormal gait Psych Reports no additional complaints Physical Exam Vital Signs: BMI result Body Mass Index 42.6 Const General: cooperative, healthy appearing and comfortable Orientation/consciousness: oriented to person, oriented to place and oriented to time HEENT Head: Yes normal to inspection Neck Neck: Yes normal visual inspection Carotids: no bruits Chest Chest palpation & inspection: normal inspection of the chest Resp Effort & Inspection: normal respiratory effort and able to speak in complete sentences Auscultation: clear to auscultation bilaterally, no crackles, no rales, no rhonchi and no wheezes Cardio Rate: regular rate Rhythm: regular rhythm Heart sounds: S1 normal heart sound present and S2 normal heart sound present Bruits: no carotid bruits Peripheral pulses: Peripheral pulses 2+ throughout GI Inspection: Yes normal to inspection Skin Wounds: no wounds Hair: normal Neuro General: oriented to person, oriented to place and oriented to time Cranial nerves: Yes CN's II-XII intact bilaterally and Yes Normal hearing present Cognition (Neuro): normal cognition Motor exam (neuro): 5/5 motor strength present throughout Extrem Other: Right upper extremity demonstrates swelling and edema compared to the left arm. There appears to be an element of dermatitis which is going up the arm. I do not appreciate any compartment fullness. Measurements 5 cm up from the right wrist is in circumference of 12 cm and the widest part of the right upper arm is 16 cm. There is dermatitis extending up to the level of the elbow. General: No clubbing, No cyanosis and No edema Psych Appearance: grossly normal Mental Status: mental status grossly normal Speech and movement: Normal speech and movement present Assessment & Plan Assessment & Plan (1) Swelling of right upper extremity: Code(s): M79.89 - Other specified soft tissue disorders Plan: In short patient has swelling of the right upper extremity. I do believe that there may be a component of dermatitis which he is seeing dermatology for in approximately 2 weeks time. In addition I do feel there is an element of lymphedema of that arm. Although it is not significantly affecting him we have taken measurements. He will follow up with us in 3 months' time. If no significant improvement we may try to get him into a lymphedema pump. Hopefully the dermatitis does improve and Dermatology will hopefully be able to help him out. Once again he does have a 3 month follow-up with us. Thank you for allowing us to assist in his care. Coding Level of Care Code New Pt Level 4 (41371) Diagnoses Swelling of right upper extremity M79.89
[2023-05-10 11:36] VITALS: BMI 42.6
== END 2023-05-10 12:01 | disposition home or self-care (01) ==
LOC: HO.HVS 11:12
PROVIDERS: PCP Internal Medicine; Visit Provider Surgery Vascular Surgery
DX: M79.89 Other specified soft tissue disorders (principal)
CPT/HCPCS: 99203

== ENCOUNTER → 2023-05-10 11:12 | Outpatient (BNVA) | payer MEDICARE, SELFPAY | PROVIDERS: PCP Internal Medicine; Visit Provider Surgery Vascular Surgery | DX: M79.89 Other specified soft tissue disorders (principal) | CPT/HCPCS: 99202 ==

== ENCOUNTER 2023-08-04 13:40 | Outpatient (AMB) | payer MEDICARE, SELFPAY ==
--- NOTE | 2023-08-04 13:41 | A.OFFVIS_ITS ---
Intake Visit Reasons: large mass inside of leg Intake Note: This patient presents for an assessment for a large mass lower extremity. Patient c/o; reports no pain, redness or hot to the touch sensation. Attic Blower Required: No Accompanied by: Spouse Allergies hives Allergy (Intermediate, Uncoded 08/04/23 13:46) chronic hives of unknown etiology Medication List - Last Reconciled 08/04/23 by Edson Modi MD amoxicillin-pot clavulanate 1,000-62.5 mg (Augmentin XR) 1 tab PO Q12H ascorbic acid (vitamin C) (Vitamin C) 250 mg PO Q OTHER DAY cyanocobalamin (vitamin B-12) (Vitamin B-12) 1,000 mcg PO DAILY ergocalciferol (vitamin D2) 1,000 units PO DAILY folic acid 1 mg PO DAILY multivitamin 1 tab PO DAILY zanubrutinib 160 mg (2 x 80 mg) PO BID HPI HPI large mass inside of leg: Details: 77-year-old male with known chronic lymphocytic leukemia, with a left thigh mass. This has been previously excised before and the path report had shown findings consistent with CLL. However, this has occurred and has been steadily becoming bigger despite chemotherapy and radiation to the area. He has been following Dr. Oliva and he was referred to me. The patient says that he wants this mass removed. He says that this has been bothering him because of the increase in size. 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 [facility] Medical History (Updated 08/04/23 @ 14:43 by Edson Modi MD) Mass of thigh Subcutaneous mass of left lower extremity Diverticular disease Depression Obesity (BMI 30-39.9) Chronic lymphocytic leukemia Plantar fasciitis Actinic keratosis Osteoarthritis Elevated PSA 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) Hypercholesterolemia HTN (hypertension) Prostate cancer Surgical History H/O removal of cyst Hx of biopsy History of knee replacement procedure of left knee H/O toe surgery H/O submandibular gland removal H/O arthroscopic knee surgery Hx of cholecystectomy Family History Mother Cardiac disease Father Cirrhosis of liver Sister Neuropathy Hypertension Other No family history of cancer Social History Household Members: Spouse Housing: House Are you a primary nurse behavioral health care to a significant other at home: No Do you presently have visiting nurse or other home services: No Alcohol intake: current Alcohol intake frequency: does not drink Patient Tobacco Use Status: Never used Tobacco e-Cigarette/Vaping Use: Never Used Second Hand Smoke Exposure: No service: Yes Current occupational status: retired Current occupation: [employer] Cognitive needs: Yes (walker/cane) Hearing needs: No Vision needs: Yes (glasses) Review of Systems Const Denies chills and Denies fever(s) Card Denies chest pain, Denies dyspnea and Reports dyspnea on exertion Resp Denies cough, Denies dyspnea and Reports dyspnea on exertion GI Denies hematochezia and Denies change in bowel habits Denies hematuria and Denies difficulty urinating Musc Denies back pain, Reports arthralgias and Reports limited range of motion Neuro Denies focal weakness and Denies convulsions Psych Denies depression and Denies mood swings Physical Exam Const Other: Appears morbidly obese General: comfortable and no acute distress Orientation/consciousness: patient oriented x3 Neck Neck: Yes no lymphadenopathy Resp Auscultation: clear to auscultation bilaterally Cardio Rhythm: regular rhythm GI Palpation (GI): Soft to palpation, nontender and no guarding Neuro General: patient oriented x3 Extrem Other: Large mass on the medial aspect of the left thigh, about 8 cm in widest dimension, spherical, seems to be mobile as well Assessment & Plan Assessment & Plan (1) Mass of thigh: Code(s): R22.40 - Localized swelling, mass and lump, unspecified lower limb Category: Medical Plan: He is this large thigh mass the previous biopsy showing findings consistent with CLL. He has undergone chemotherapy and radiation but this has increased in size. He therefore wants this removed. He says that this is bothering a lot now because of the size I explained the technique of excision which will be done under anesthesia in the OR. I reviewed the risks including but not limited to bleeding, infections, poor healing especially in the background of previous radiation, pain, as well as the benefits and alternatives He wants to proceed He is a practicing [employer]ri[employer] and does not want any chemotherapy by any means. I have discussed the above with Dr. Oliva of Oncology. Coding Level of Care Code Est Pt Level 4 (52544) Diagnoses Mass of thigh R22.40
== END 2023-08-04 14:38 | disposition home or self-care (01) ==
PROVIDERS: PCP Internal Medicine; Visit Provider Surgery
DX: R22.40 Localized swelling, mass and lump, unspecified lower limb (principal)
CPT/HCPCS: 99214

== ENCOUNTER → 2023-08-04 13:40 | Outpatient (BNVA) | payer MEDICARE, SELFPAY | PROVIDERS: PCP Internal Medicine; Visit Provider Surgery | DX: R22.42 Localized swelling, mass and lump, left lower limb (principal); C91.10 Chronic lymphocytic leukemia of B-cell type not having achieved remission | CPT/HCPCS: 99212 ==

== ENCOUNTER 2023-08-23 05:35 | Day surgery (SDC) | payer MEDICARE, SELFPAY ==
[2023-08-16 13:27] VITALS: BP 119/67; PULSE 92; RESP 18; BMI 43.0
--- NOTE | 2023-08-16 14:07 | HO.ANESPROP2 ---
Documented by User: Marii Zaman MD 08/16/23 14:16 [facility] Active Problems Active Problems: All Active Problems Swelling of right upper extremity (Acute) Peripheral vascular disease (Acute) Impaired fasting blood sugar (Acute) Encounter for removal of sutures (Acute) Skin cancer (Acute) Elevated blood sugar (Acute) Mass of left thigh (Acute) Vitamin B12 deficiency (Acute) Annual physical exam (Acute) Pre-operative clearance (Acute) Blood pressure elevated without history of HTN (Acute) Elevated TSH (Acute) Prostate cancer (Acute) Chronic lymphocytic leukemia (Acute) Mass of thigh (Acute) Subcutaneous mass of left lower extremity (Acute) History of knee replacement procedure of left knee (Acute) Osteoarthritis (Acute) Hypercholesterolemia (Acute) Obesity (BMI 30-39.9) (Acute) Past Medical History Medical History (Updated 08/23/23 @ 08:03 by Zayda Bojorquez MD) Anemia Sleep apnea Hx of radiation therapy History of chemotherapy Mass of thigh Subcutaneous mass of left lower extremity Diverticular disease Depression Obesity (BMI 30-39.9) Chronic lymphocytic leukemia Plantar fasciitis Actinic keratosis Osteoarthritis Elevated PSA 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) Hypercholesterolemia HTN (hypertension) Prostate cancer Family History Family History Mother Cardiac disease Father Cirrhosis of liver Sister Neuropathy Hypertension Other No family history of cancer Family history of problems with anesthesia: No Surgical History Surgical History H/O colonoscopy H/O removal of cyst Hx of biopsy History of knee replacement procedure of left knee H/O toe surgery H/O submandibular gland removal H/O arthroscopic knee surgery Hx of cholecystectomy History of Problems with Anesthesia: No Social History Social History Household Members: Spouse Housing: House Are you a primary hospice care transitions coordinator to a significant other at home: No Do you presently have visiting nurse or other home services: No Alcohol intake: current Alcohol intake frequency: does not drink Comment: COUNTS CORRECT Patient Tobacco Use Status: Never used Tobacco e-Cigarette/Vaping Use: Never Used Second Hand Smoke Exposure: No service: Yes Current occupational status: retired Current occupation: [employer] Cognitive needs: Yes (walker/cane) Hearing needs: No Vision needs: Yes (glasses) Meds Allergies Allergy/AdvReac Type Severity Reaction Status Date / Time No Known Allergies Allergy Verified 08/22/23 10:11 Home Medications ?Medication ?Instructions ?Recorded ?Confirmed ?Last Taken ?Type ergocalciferol (vitamin D2) 1,000 1,000 unit PO DAILY 04/17/20 08/22/23 Unknown History unit capsule multivitamin 1 tab PO DAILY 10/07/21 08/22/23 Unknown History cyanocobalamin (vitamin B-12) 1,000 mcg PO DAILY 05/11/22 08/22/23 Unknown History 1,000 mcg tablet (Vitamin B-12) folic acid 1 mg tablet 1 mg PO DAILY 01/10/23 08/22/23 Unknown History Exam Height,Weight and Vital Signs: Height 6 ft Weight 143.789 kg Last Vital Signs Pulse 92 08/16/23 13:27 Resp 18 08/16/23 13:27 BP 119/67 08/16/23 13:27 O2 Del Method Room Air 08/16/23 13:27 Airway Mallampati Class: III TM Dist: >3cm Neck ROM: Full Loose/Missing/Broken Teeth: No Heart: RRR Lungs: CTA Assessment and Plan Assessment Anesthesia Assessment: Anesthesia Plan Discussed and Chart Reviewed Final Anesthetic Review Family History of Problems with Anesthesia: No History of Problems with Anesthesia: No NPO: Yes ASA Class: III Final Preanesthetic Review: Meds/Allgs Chart Reviewed, Consent Obtained/Reviewed and Anes Risks/Benef Reviewed Patient Risk: Intermediate Procedure Risk: Low Documented by User: Serena Maher NP 08/19/23 14:58 HPI - Anesthesia Eval Consult details Narrative: 77yo M for Left Excision Large Mass Thigh PAT eval with Dr Zaman 08/16/2023 [facility] Past Medical History Medical History (Updated 08/23/23 @ 08:03 by Zayda Bojorquez MD) Anemia Sleep apnea Hx of radiation therapy History of chemotherapy Mass of thigh Subcutaneous mass of left lower extremity Diverticular disease Depression Obesity (BMI 30-39.9) Chronic lymphocytic leukemia Plantar fasciitis Actinic keratosis Osteoarthritis Elevated PSA 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) Hypercholesterolemia HTN (hypertension) Prostate cancer Family History Family History Mother Cardiac disease Father Cirrhosis of liver Sister Neuropathy Hypertension Other No family history of cancer Surgical History Surgical History H/O colonoscopy H/O removal of cyst Hx of biopsy History of knee replacement procedure of left knee H/O toe surgery H/O submandibular gland removal H/O arthroscopic knee surgery Hx of cholecystectomy Social History Social History Household Members: Spouse Housing: House Are you a primary hospice care transitions coordinator to a significant other at home: No Do you presently have visiting nurse or other home services: No Alcohol intake: current Alcohol intake frequency: does not drink Comment: COUNTS CORRECT Patient Tobacco Use Status: Never used Tobacco e-Cigarette/Vaping Use: Never Used Second Hand Smoke Exposure: No service: Yes Current occupational status: retired Current occupation: [employer] Cognitive needs: Yes (walker/cane) Hearing needs: No Vision needs: Yes (glasses) Meds Allergies Allergy/AdvReac Type Severity Reaction Status Date / Time No Known Allergies Allergy Verified 08/22/23 10:11 Home Medications ?Medication ?Instructions ?Recorded ?Confirmed ?Last Taken ?Type ergocalciferol (vitamin D2) 1,000 1,000 unit PO DAILY 04/17/20 08/22/23 Unknown History unit capsule multivitamin 1 tab PO DAILY 10/07/21 08/22/23 Unknown History cyanocobalamin (vitamin B-12) 1,000 mcg PO DAILY 05/11/22 08/22/23 Unknown History 1,000 mcg tablet (Vitamin B-12) folic acid 1 mg tablet 1 mg PO DAILY 01/10/23 08/22/23 Unknown History Exam Pertinent Lab Results Pertinent Lab Results: Laboratory Tests 07/19/23 11:02 WBC 23.6 H Hgb 12.5 L Hct 39.5 L Plt Count 170 Sodium 143 Potassium 4.1 Chloride 108 Carbon Dioxide 25 BUN 11 Creatinine 0.83 Narrative Narrative: EKG 2022 Vent. Rate : 087 BPM Atrial Rate : 087 BPM P-R Int : 186 ms QRS Dur : 102 ms QT Int : 386 ms P-R-T Axes : 027 -36 035 degrees QTc Int : 464 ms Normal sinus rhythm Left axis deviation Minimal voltage criteria for LVH, may be normal variant ( R in aVL ) Abnormal ECG When compared with ECG of 07-JUL-2021 08:53, No significant change was found Documented by User: Zayda Bojorquez MD 08/23/23 08:09 [facility] Active Problems Active Problems: All Active Problems Swelling of right upper extremity (Acute)- lymphedema Peripheral vascular disease (Acute) Impaired fasting blood sugar (Acute) Encounter for removal of sutures (Acute) Skin cancer (Acute) Elevated blood sugar (Acute) Mass of left thigh (Acute) Vitamin B12 deficiency (Acute) Annual physical exam (Acute) Pre-operative clearance (Acute) Blood pressure elevated without history of HTN (Acute) Elevated TSH (Acute) Prostate cancer (Acute) Chronic lymphocytic leukemia (Acute) Mass of thigh (Acute) Subcutaneous mass of left lower extremity (Acute) History of knee replacement procedure of left knee (Acute) Osteoarthritis (Acute) Hypercholesterolemia (Acute) Morbid Obesity BMI 45.6 Past Medical History Medical History (Updated 08/23/23 @ 08:03 by Zayda Bojorquez MD) Anemia Sleep apnea Hx of radiation therapy History of chemotherapy Mass of thigh Subcutaneous mass of left lower extremity Diverticular disease Depression Obesity (BMI 30-39.9) Chronic lymphocytic leukemia Plantar fasciitis Actinic keratosis Osteoarthritis Elevated PSA 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) Hypercholesterolemia HTN (hypertension) Prostate cancer Family History Family History Mother Cardiac disease Father Cirrhosis of liver Sister Neuropathy Hypertension Other No family history of cancer Family history of problems with anesthesia: No Surgical History Surgical History H/O colonoscopy H/O removal of cyst Hx of biopsy History of knee replacement procedure of left knee H/O toe surgery H/O submandibular gland removal H/O arthroscopic knee surgery Hx of cholecystectomy History of Problems with Anesthesia: No Social History Social History Household Members: Spouse Housing: House Are you a primary hospice care transitions coordinator to a significant other at home: No Do you presently have visiting nurse or other home services: No Alcohol intake: current Alcohol intake frequency: does not drink Comment: COUNTS CORRECT Patient Tobacco Use Status: Never used Tobacco e-Cigarette/Vaping Use: Never Used Second Hand Smoke Exposure: No service: Yes Current occupational status: retired Current occupation: [employer] Cognitive needs: Yes (walker/cane) Hearing needs: No Vision needs: Yes (glasses) Meds Allergies Allergy/AdvReac Type Severity Reaction Status Date / Time No Known Allergies Allergy Verified 08/22/23 10:11 Home Medications ?Medication ?Instructions ?Recorded ?Confirmed ?Last Taken ?Type ergocalciferol (vitamin D2) 1,000 1,000 unit PO DAILY 04/17/20 08/22/23 Unknown History unit capsule multivitamin 1 tab PO DAILY 10/07/21 08/22/23 Unknown History cyanocobalamin (vitamin B-12) 1,000 mcg PO DAILY 05/11/22 08/22/23 Unknown History 1,000 mcg tablet (Vitamin B-12) folic acid 1 mg tablet 1 mg PO DAILY 01/10/23 08/22/23 Unknown History Exam Height,Weight and Vital Signs: Height 6 ft Weight 152.498kg Last Vital Signs Pulse 92 08/16/23 13:27 Resp 18 08/16/23 13:27 BP 119/67 08/16/23 13:27 O2 Del Method Room Air 08/16/23 13:27 Vital Signs Temp Pulse Resp BP Pulse Ox O2 Del Method 08/23/23 06:29 123/76 08/23/23 06:19 97.8 F 78 20 97 Room Air Pertinent Lab Results Pertinent Lab Results: Laboratory Tests 07/19/23 11:02 WBC 23.6 H Hgb 12.5 L Hct 39.5 L Plt Count 170 Sodium 143 Potassium 4.1 Chloride 108 Carbon Dioxide 25 BUN 11 Creatinine 0.83 Airway Mallampati Class: III TM Dist: >3cm Neck ROM: Full Loose/Missing/Broken Teeth: Yes (Missing teeth top back right. Denies broken or loose teeth) Lungs: CTAB Assessment and Plan Final Anesthetic Review Family History of Problems with Anesthesia: No History of Problems with Anesthesia: No NPO: Yes ASA Class: II and III Final Preanesthetic Review: No Changes in Pt Med Stat, Meds/Allgs Chart Reviewed, Consent Obtained/Reviewed and Anes Risks/Benef Reviewed Patient Risk: Intermediate Procedure Risk: Low Anesthetic Plan Anesthetic Plan: GA Disposition: Standard PACU
[2023-08-23] VITALS (7 sets, daily range): BP systolic 121–146; BP diastolic 76–92; PULSE 72–80; RESP 16–20; TEMP 36.6–36.9; O2SAT 94–97; BMI 45.6
[2023-08-23] MEDS: Lactated Ringers 1,000 ML 100 ML IVCONT (06:36)
--- NOTE | 2023-08-23 07:13 | MHC.SHP ---
Pre-Procedural Eval Section A - 24 Hr Update-Section A only Date of Service: 08/23/23 The patient is an INPATIENT: No Changes since office visit: No Cold of Flu in the past 2 weeks, No New Medical Problems, No Changes in Medication and No Patient answered all questions The patient has been examined within 24 hours of the surgical procedure. The History & Physical has been completed within 30 days and I have reviewed it.: Yes Section B - Complete if H&P > 30 days Chief Complaint: Localized swelling, mass and lump, unspecified low Allergies: Allergies Allergy/AdvReac Type Severity Reaction Status Date / Time No Known Allergies Allergy Verified 08/22/23 10:11 Plan I have reviewed the history and physical and performed a pertinent physical examination on my patient. No changes have occurred unless specified. Time Spent With Patient Time: Total time managing care of this patient today ____ minutes.
--- NOTE | 2023-08-23 08:19 | P.OP_ITS ---
Operative Note Operative Note Date of Service: 08/23/23 Narrative: Preop diagnosis: CLL, with recurrent mass on the left thigh Postop diagnosis: The same Procedure: Excision of large subcutaneous mass on the left thigh Surgeon: Edson Modi MD FINDINGS: Large spherical mass, 10 cm in diameter, well-defined, with smooth surface The patient is a 77-year-old male with known CLL, who had undergone excision of a large mass from the left thigh in 2022. This showed cystic myxoid degeneration with lymphoid aggregates consistent with chronic lymphocytic leukemia. This mass had recurred and the patient had wanted to proceed with excision in view of the large size and associated discomfort. He understood the technique of the procedure as well as the risks, benefits, and alternatives She was brought to the operating room. He was placed supine under general anesthesia via laryngeal mask airway. He was placed in frog-leg position. The mass was noted on the medial aspect of the left thigh proximally. A surgical time-out was done. This area was prepped and draped in the usual sterile fashion. The patient received cefazolin 2 g IV preoperatively I infiltrated the planned line of incision with lidocaine 1%. I made the transverse incision on the skin overlying the large mass using a blade 15. And this was carried down with electrocautery through the full-thickness of the skin and subcutaneous fat until visualize the mass. The mass was well-defined, spher ical, and had what appeared to be a smooth capsule. I did sharp dissection using electrocautery to divide attached subcutaneous tissue surrounding the mass all the way posteriorly and circumferentially and then this entire mass was completely . The mass was spherical and more than 10 cm in widest dimension. I cauterized oozing areas in the subcutaneous space. I irrigated. Once hemost asis was confirmed, I proceeded to reapposed subcutaneous tissue with Polysorb 3-0 interrupted sutures. Skin closure was achieved with nylon 3-0 simple interrupted sutures. The area was then infiltrated with Marcaine 0.5% for postop analgesia Dressings were applied and the procedure was completed The patient tolerated the procedure well. There were no immediate complications. Initial and final counts of sponges and instruments were correct. Estimated blood loss was about 10 cc. The patient was extubated without difficulty and transferred to the recovery room with stable vital signs.
== END 2023-08-23 10:09 | disposition home or self-care (01) ==
PROVIDERS: PCP Internal Medicine; Visit Provider Surgery
PROC: (CPT 27337; principal; 2023-08-23 07:30)
DX: R22.42 Localized swelling, mass and lump, left lower limb (principal); C91.10 Chronic lymphocytic leukemia of B-cell type not having achieved remission; I10 Essential (primary) hypertension; Z79.899 Other long term (current) drug therapy
CPT/HCPCS: 27337; 88304; 88307; J0131; J0690; J1100; J2405; J2704; J2795; J3010

== ENCOUNTER → 2023-08-23 05:35 | Outpatient (BNV) | payer MEDICARE, SELFPAY | PROVIDERS: PCP Internal Medicine; Visit Provider Surgery | DX: R22.42 Localized swelling, mass and lump, left lower limb (principal) | CPT/HCPCS: 27337 ==

== ENCOUNTER 2023-09-01 11:24 | Emergency (ER) | payer MEDICARE, SELFPAY ==
[2023-09-01 11:36] VITALS: BP 158/77; PULSE 81; RESP 18; TEMP 36.9; O2SAT 94; BMI 44.0
--- NOTE | 2023-09-01 11:36 | ED_ITS ---
HPI - General Adult General Chief complaint: Urogenital-Male Stated complaint: blood in urine Time Seen by Provider: 09/01/23 18:13 Source: patient Mode of arrival: ambulatory History of Present Illness ED Provider: Nikita HPI narrative: 77-year-old male with history of prostate cancer status post chemotherapy presents with hematuria x2 days. Denies fever, dysuria, or flank pain. Patient also denies inability to fully empty his bladder. Related Data Home Medications ?Medication ?Instructions ?Recorded ?Confirmed ergocalciferol (vitamin D2) 1,000 1,000 unit PO DAILY 04/17/20 08/22/23 unit capsule multivitamin 1 tab PO DAILY 10/07/21 08/22/23 cyanocobalamin (vitamin B-12) 1,000 mcg PO DAILY 05/11/22 08/22/23 1,000 mcg tablet (Vitamin B-12) folic acid 1 mg tablet 1 mg PO DAILY 01/10/23 08/22/23 Previous Rx's ?Medication ?Instructions ?Recorded zanubrutinib 80 mg capsule 160 mg (2 x 80 mg) PO BID #120 caps 06/04/23 oxycodone-acetaminophen 5 mg-325 1 tab PO Q4-6H PRN pain #20 tabs 08/23/23 mg tablet (Percocet) cephalexin 500 mg capsule 500 mg PO BID #14 caps 09/01/23 Allergies Allergy/AdvReac Type Severity Reaction Status Date / Time No Known Allergies Allergy Verified 09/01/23 11:39 Review of Systems 2 Review of Systems: Yes all other systems are reviewed and are negative Constitutional: Constitutional: Denies fatigue and Denies fever(s) Gastrointestinal: Gastrointestinal: Denies abdominal pain Genitourinary: Genitourinary: Reports hematuria, Denies oliguria, Denies dysuria and Denies flank pain Endocrine: Endocrine: Denies fatigue PMFSH Past Medical History Attestation statement: The following information was validated with the patient. Medical History (Updated 09/01/23 @ 18:35 by TESSA Li) Anemia Sleep apnea Hx of radiation therapy History of chemotherapy Mass of thigh Subcutaneous mass of left lower extremity Diverticular disease Depression Obesity (BMI 30-39.9) Chronic lymphocytic leukemia Plantar fasciitis Actinic keratosis Osteoarthritis Elevated PSA 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) Hypercholesterolemia HTN (hypertension) Prostate cancer Surgical History H/O colonoscopy H/O removal of cyst Hx of biopsy History of knee replacement procedure of left knee H/O toe surgery H/O submandibular gland removal H/O arthroscopic knee surgery Hx of cholecystectomy Family History Family History Mother Cardiac disease Father Cirrhosis of liver Sister Neuropathy Hypertension Other No family history of cancer Social History Social History Household Members: Spouse Housing: House Are you a primary healthcare economics consultant to a significant other at home: No Do you presently have visiting nurse or other home services: No Alcohol intake: current Alcohol intake frequency: does not drink Comment: COUNTS CORRECT Patient Tobacco Use Status: Never used Tobacco e-Cigarette/Vaping Use: Never Used Second Hand Smoke Exposure: No Do you have a plan to hurt others: No Plan service: Yes Current occupational status: retired Current occupation: [employer] Cognitive needs: Yes (walker/cane) Hearing needs: No Vision needs: Yes (glasses) Physical Exam ED Vital Signs: Vital Signs - 24 hr 09/01/23 11:36 09/01/23 18:09 Temperature 98.5 F 98.1 F Pulse Rate 81 76 Respiratory Rate 18 18 Blood Pressure 158/77 H 193/96 H Pulse Oximetry 94 96 Oxygen Delivery Method Room Air Room Air BMI result Body Mass Index 44.0 Const Other: Alert well in appearance Resp Other: Nonlabored respiration Cardio Other: Normal peripheral perfusion GI Other: Abdomen soft, nondistended, obese, no tenderness to palpation no guarding Skin Other: No rash Neuro Other: Alert and oriented x3 Extrem Other: Ambulates with normal steady gait Psych Other: Calm cooperative Course Course Course Narrative: This is an RME: Additional HPI, ROS, PE not included below will be deferred to primary provider. RME assessment and note performed by: Julia Glao PA-C This is a [id number]-male, with a hx of CLL, prostate cancer, hypercholesterolemia, HTN, who presents to the ER with complaints of hematuria since this morning. Had seroma removed on left leg - inner thigh. Plan: Labs, UA Medical Decision Making Medical Decision Making MDM Narrative: 77-year-old male with history of prostate cancer status post chemotherapy presents with hematuria x2 days. Denies fever, dysuria, or flank pain. Patient also denies inability to fully empty his bladder. Problem: Prostate cancer History: Per patient I considered the following differential diagnoses: UTI, urosepsis, renal colic, obstructive uropathy/clot burden need for CBI Plan: Patient's care was initiated in [facility], screening labs and urinalysis are now complete. It is questionable whether he has a UTI, it will reflexively go to culture. We will treat empirically with Keflex. This is not renal colic, the patient has never had any abdominal pain specifically flank pain. This is not urosepsis, the patient is afebrile and hemodynamically stable. Patient is urinating freely, no urinary retention to suggest significant clot burden and need for CBI. No indication for imaging I have independently reviewed the following tests: Labs: Leukocytosis of 18, not anemic, no electrolyte abnormality, questionable UTI Differential Diagnosis Differential Diagnoses: The differential diagnosis associated with the presentation includes UTI, urosepsis, renal colic, obstructive uropathy/clot burden need for CBI Lab Data 09/01/23 17:18 09/01/23 12:19 Labs: Lab Results 09/01/23 09/01/23 Range/Units 12:19 17:18 WBC 18.8 H (4.8-10.8) X10*3/uL RBC 4.40 L (4.60-5.80) X10*6/uL Hgb 12.5 L (14.0-18.0) g/dl Hct 39.6 L (42.0-52.0) % MCV 90.0 (80.0-98.0) fL MCH 28.4 (27.0-33.0) pg MCHC 31.6 (31.0-36.0) g/dl RDW 15.7 (11.0-16.0) % Plt Count 182 (160-400) X10*3/uL MPV 12.2 (9.4-12.4) fL Immature Gran % (Auto) Cancelled Neut % (Auto) Cancelled Lymph % (Auto) Cancelled [place] % (Auto) Cancelled Eos % (Auto) Cancelled Baso % (Auto) Cancelled Lymph # (Auto) Cancelled [place] # (Auto) Cancelled Eos # (Auto) Cancelled Baso # (Auto) Cancelled Abs Immat Gran (auto) Cancelled Absolute Neuts (auto) Cancelled Absolute Nucleated RBC 0.000 (0.0-0.012) X10*3/uL Nucleated RBC % (auto) 0.0 (0.0-0.2) /100WBC Neutrophils % (Manual) 11 L (45-73) % Band Neutrophils % 0 L (3-5) % Lymphocytes % (Manual) 83 H (20-40) % Atypical Lymphs % (Man) 2 (0-6) % Monocytes % (Manual) 1 L (2-11) % Eosinophils % (Manual) 2 (0-4) % Basophils % (Manual) 1 (0-2) % Abs Neuts (Manual) 2.1 (2.0-8.3) X10*3/uL Lymphocytes # (Manual) 15.6 H (1.2-4.9) X10*3/uL Atyp Lymphs # (Manual) 0.4 x10*3/uL Monocytes # (Manual) 0.2 (0.1-1.2) X10*3/uL Eosinophils # (Manual) 0.4 (0.0-0.4) X10*3/uL Basophils # (Manual) 0.2 (0.0-0.2) X10*3/uL [place] Cells PRESENT Platelet Estimate NORMAL (NORMAL) Plt Morphology Comment NORMAL RBC Morphology NOTED Sodium 142 (135-145) mmol/L Potassium 4.5 (3.3-5.1) mmol/L Chloride 107 (96-108) mmol/L Carbon Dioxide 29 (22-29) mmol/L Anion Gap 11 L (12-20) BUN 14 (9-16) mg/dL Creatinine 0.92 (0.5-1.4) mg/dL Estim Creat Clear Calc 103.5 Estimated GFR > 60 Random Glucose 128 H (60-115) mg/dL Calcium 9.1 (8.4-10.2) mg/dL Total Bilirubin 0.7 (0.0-1.0) mg/dL Direct Bilirubin 0.2 (0.0-0.5) mg/dL AST 20 (5-37) U/L ALT 18 (0-40) U/L Alkaline Phosphatase 83 (39-117) U/L Total Protein 6.7 (6.5-8.0) g/dL Albumin 3.9 (3.5-5.0) g/dL Urine Color Yellow Urine Appearance Cloudy Urine pH 5.5 (5.0-9.0) Ur Specific [place] 1.010 (1.005-1.025) Urine Protein Trace (Neg-Trace) mg/dL Urine Glucose (UA) Negative (Negative) mg/dL Urine Ketones Negative (Negative) mg/dL Urine Blood Large (3+) H (Negative) Urine Nitrite Negative (Negative) Ur Leukocyte Esterase Moderate (2+) H (Negative) Urine RBC >20 H (0-2) /HPF Urine WBC 21-50 H (0-5) /HPF Ur Squamous Epith Cells 0-2 (0-2) /HPF Urine Bacteria None Seen (None Seen) Hyaline Casts 0-2 (0-2) /LPF Discharge Plan Discharge Clinical Impression: Acute UTI Patient Disposition: Home, Self-Care Instructions: Urinary Tract Infection in Men (DC) Additional Instructions: You were found to have a urinary tract infection. See home care instructions. Take the Keflex as directed. Follow up with your primary care provider as needed. To note, be mindful of return precautions for inability to fully empty your bladder, if you develop inability to urinate at all, if you begin passing large clots. Any of these symptoms would necessitate further emergent medical assessment. Prescriptions: New cephalexin 500 mg capsule 500 mg PO BID Qty: 14 0RF No Action Vitamin D2 1,000 unit Capsule 1,000 unit PO DAILY cyanocobalamin (vitamin B-12) [Vitamin B-12] 1,000 mcg Tablet 1,000 mcg PO DAILY folic acid 1 mg Tablet 1 mg PO DAILY zanubrutinib 80 mg Capsule 160 mg PO BID Qty: 120 6RF oxycodone-acetaminophen [Percocet] 5-325 mg tablet 1 tab PO Q4-6H PRN (Reason: pain) Qty: 20 0RF Rx Instructions: Partial Fill upon patient request. multivitamin Tablet 1 tab PO DAILY Print Language: Bulgarian
[2023-09-01 12:28] LABS: Appearance Urine Cloudy; Color Urine Yellow; Glucose Urine UA Negative (Negative); Leukocyte Esterase Urine Moderate (2+) (Negative); Nitrite Urine Negative (Negative); PH 5.5 (5.0-9.0); UMIC TRIGGER UACC YES; Urine Blood Large (3+) (Negative); Urine Ketones Negative (Negative); Urine Protein Trace mg/dL (Neg-Trace)
[2023-09-01 12:36] LABS: Bacteria Urine None Seen (None Seen); Hyaline Casts Urine 0-2 /LPF (0-2); RBC Urine >20 /HPF (0-2); Squamous Epithelial Cell Urine 0-2 /HPF (0-2); UACC Culture Trigger YES; WBC Urine 21-50 /HPF (0-5)
[2023-09-01 12:42] LABS: Alanine Aminotransferase 18 U/L (0-40); Albumin Level 3.9 g/dL (3.5-5.0); Alkaline Phosphatase 83 U/L (39-117); Anion Gap 11 (12-20); Aspartate Amino Transferase 20 U/L (5-37); Bilirubin Direct 0.2 mg/dL (0.0-0.5); Bilirubin Total 0.7 mg/dL (0.0-1.0); Blood Urea Nitrogen 14 mg/dL (9-16); Calcium 9.1 mg/dL (8.4-10.2); Carbon Dioxide 29 mmol/L (22-29); Chloride 107 mmol/L (96-108); Creatinine Clr Calc Pharmacy 103.5; Estimated Glomerular Filt Rate > 60; Glucose Random 128 mg/dL (60-115); Potassium 4.5 mmol/L (3.3-5.1); Sodium 142 mmol/L (135-145); Total Protein 6.7 g/dL (6.5-8.0)
[2023-09-01 17:43] LABS: Hematocrit 39.6 % (42.0-52.0); Hemoglobin 12.5 g/dl (14.0-18.0); Mean Corpuscular HGB Conc 31.6 g/dl (31.0-36.0); Mean Corpuscular Hemoglobin 28.4 pg (27.0-33.0); Mean Platelet Volume 12.2 fL (9.4-12.4); Platelet Count 182 X10*3/uL (160-400); Red Cell Distribution Width 15.7 % (11.0-16.0); White Blood Count 18.8 X10*3/uL (4.8-10.8)
[2023-09-01 18:02] LABS: Atypical Lymph Absolute Manual 0.4 x10*3/uL; Atypical Lymphs Percent Manual 2 % (0-6); Basophils Abs Manual 0.2 X10*3/uL (0.0-0.2); Basophils Percent Manual 1 % (0-2); Eosinophils Absolute Manual 0.4 X10*3/uL (0.0-0.4); Eosinophils Percent Manual 2 % (0-4); Lymphocytes Absolute Manual 15.6 X10*3/uL (1.2-4.9); Lymphocytes Percent Manual 83 % (20-40); Monocytes Absolute Manual 0.2 X10*3/uL (0.1-1.2); Monocytes Percent Manual 1 % (2-11); Neutrophils Percent Manual 11 % (45-73)
[2023-09-01 18:03] LABS: Platelet Estimate NORMAL (NORMAL); Platelet Morphology Comment NORMAL; RBC Morphology NOTED; Smudge Cells PRESENT
[2023-09-01 18:05] LABS: Band Neutrophils Percent 0 % (3-5); Neutrophils Absolute Manual 2.1 X10*3/uL (2.0-8.3)
[2023-09-01 18:09] VITALS: BP 193/96; PULSE 76; RESP 18; TEMP 36.7; O2SAT 96
[2023-09-01] MEDS: cephALEXin 500 MG CAPSULE PO (18:40)
[2023-09-01 18:45] VITALS: BP 120/89; PULSE 81; RESP 14; TEMP 37.2; O2SAT 98
== END 2023-09-01 18:46 | disposition home or self-care (01) ==
PROVIDERS: Physician Assistant Medical; Emergency Provider Internal Medicine; PCP Internal Medicine
DX: N39.0 Urinary tract infection, site not specified (principal); B96.89 Other specified bacterial agents as the cause of diseases classified elsewhere; I10 Essential (primary) hypertension; Z85.46 Personal history of malignant neoplasm of prostate; Z92.21 Personal history of antineoplastic chemotherapy
CPT/HCPCS: 36415; 80048; 80076; 81001; 85007; 85027; 87086; 87088; 87186; 99283

== ENCOUNTER 2023-09-05 13:53 | Outpatient (AMB) | payer MEDICARE, SELFPAY ==
[2023-09-05 14:16] VITALS: BMI 44.0
--- NOTE | 2023-09-05 14:16 | MHC.OFFVIS ---
Vital Signs 09/05/23 14:16 Height 6 ft Weight 324 lb 11.854 oz BMI 44.0 Intake Visit Reasons: S/P excision large mass Lt. thigh Intake Note: This patient presents for a follow-up assessment status post excision large mass Left thigh. Patient c/o; reports no complaints. 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 thigh: Details: He underwent excision of a large, recurrent mass from the left medial thigh under anesthesia last 08/23/2023. He tolerated procedure well. 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) Hypercholesterolemia HTN (hypertension) Prostate cancer Surgical History H/O colonoscopy H/O removal of cyst Hx of biopsy History of knee replacement procedure of left knee H/O toe surgery H/O submandibular gland removal H/O arthroscopic knee surgery Hx of cholecystectomy Family History Mother Cardiac disease Father Cirrhosis of liver Sister Neuropathy Hypertension Other No family history of cancer Social History Household Members: Spouse Housing: House Are you a primary wound care physician to a significant other at home: No Do you presently have visiting nurse or other home services: No Alcohol intake: current Alcohol intake frequency: does not drink Comment: COUNTS CORRECT Patient Tobacco Use Status: Never used Tobacco e-Cigarette/Vaping Use: Never Used Second Hand Smoke Exposure: No Advance Directives Date on File: 09/01/20 service: Yes Current occupational status: retired Current occupation: [employer] Cognitive needs: Yes (walker/cane) Hearing needs: No Vision needs: Yes (glasses) Review of Systems Const Denies chills and Denies fever(s) Physical Exam Vital Signs: BMI result Body Mass Index 44.0 Const General: comfortable and no acute distress Extrem Other: Excision site is well healed, not infected, sutures intact Assessment & Plan Assessment & Plan (1) Subcutaneous mass of left lower extremity: Code(s): R22.42 - Localized swelling, mass and lump, left lower limb Category: Medical Plan His incision is well healed. There has no evidence of infection. I removed his sutures. I reinforced the incision with Steri-Strips. He is note of some thick seromatous fluid. I applied dry dressings. His path report shows a pseudocyst with dense fibrous wall, hemorrhoids, fibrinous small lymphocele aggregates compatible with a seroma with CLL. He can follow up on a p.r.n. basis. Coding Level of Care Code Global (51062) Diagnoses Subcutaneous mass of left lower extremity R22.42
== END 2023-09-05 14:29 | disposition home or self-care (01) ==
PROVIDERS: PCP Internal Medicine; Visit Provider Surgery
DX: R22.42 Localized swelling, mass and lump, left lower limb (principal)
CPT/HCPCS: 99024

== ENCOUNTER → 2023-09-05 13:53 | Outpatient (BNVA) | payer MEDICARE, SELFPAY | PROVIDERS: PCP Internal Medicine; Visit Provider Surgery | DX: R22.42 Localized swelling, mass and lump, left lower limb (principal) | CPT/HCPCS: 99212 ==

== ENCOUNTER → 2023-09-12 10:52 | Outpatient (BNVA) | payer MEDICARE, SELFPAY | PROVIDERS: PCP Internal Medicine; Visit Provider Surgery | DX: L76.34 Postprocedural seroma of skin and subcutaneous tissue following other procedure (principal) | CPT/HCPCS: 10160; 99211 ==

== ENCOUNTER 2023-09-19 15:55 | Outpatient (AMB) | payer MEDICARE, SELFPAY ==
[2023-09-19 15:59] VITALS: BMI 44.0
--- NOTE | 2023-09-19 15:59 | A.OFFVIS_ITS ---
Vital Signs 09/19/23 15:59 Height 6 ft Weight 324 lb 11.854 oz BMI 44.0 Intake Visit Reasons: Wound check, swelling, possible aspiration Intake Note: This patient presents for a wound check, swelling. Patient c/o; swelling and needs to be drained . 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 He has been noticing gradual increase in fluid collection in the area. He therefore asked t o be seen. Describes some discomfort because of this fluid collection. 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) Hypercholesterolemia HTN (hypertension) Prostate cancer Surgical History H/O colonoscopy H/O removal of cyst Hx of biopsy History of knee replacement procedure of left knee H/O toe surgery H/O submandibular gland removal H/O arthroscopic knee surgery Hx of cholecystectomy Family History Mother Cardiac disease Father Cirrhosis of liver Sister Neuropathy Hypertension Other No family history of cancer Social History Household Members: Spouse Housing: House Are you a primary rn palliative care to a significant other at home: No Do you presently have visiting nurse or other home services: No Alcohol intake: current Alcohol intake frequency: does not drink Comment: COUNTS CORRECT Patient Tobacco Use Status: Never used Tobacco e-Cigarette/Vaping Use: Never Used Second Hand Smoke Exposure: No Advance Directives Date on File: 09/01/20 service: Yes Current occupational status: retired Current occupation: [employer] [employer] Cognitive needs: Yes (walker/cane) Hearing needs: No Vision needs: Yes (glasses) Review of Systems Const Denies chills and Denies fever(s) Physical Exam Vital Signs: BMI result Body Mass Index 44.0 Const General: comfortable and no acute distress Resp Effort & Inspection: normal respiratory effort Extrem Other: Soft, boggy fluid collection on the excision site on the left thigh medially consistent with a seroma Office Procedures Aspiration of Seroma Details: The area was prepped and draped. I used a gauge 18 needle to aspirate this seromatous fluid. 320 cc of clear seromatous fluid was aspirated I applied dressings. He understands the risk of reaccumulation. He will follow up down the line for this he says. Aspiration of Seroma: [id number] Seroma Aspiration All charges added?: Procedure code (CPT) selection complete Assessment & Plan Assessment & Plan (1) Postprocedural seroma of skin and subcutaneous tissue following other procedure: Code(s): L76.34 - Postprocedural seroma of skin and subcutaneous tissue following other procedure Category: Medical Plan: He has developed a seroma from the excision site. I explained to him it would be best to aspirate this. Aspiration was done in the office in about 320 cc of clear seromatous fluid was aspirated. He tolerated procedure well. He says he will come back to the office if this reaccumulates down the line. There has no evidence of a wound infection. Coding Level of Care Code Procedure Only Diagnoses Postprocedural seroma of skin and subcutaneous tissue following other procedure L76.34 CPT Codes Aspiration of Seroma ([id number])
== END 2023-09-19 16:28 | disposition home or self-care (01) ==
PROVIDERS: PCP Internal Medicine; Visit Provider Surgery
DX: L76.34 Postprocedural seroma of skin and subcutaneous tissue following other procedure (principal); Z48.89 Encounter for other specified surgical aftercare
CPT/HCPCS: 99024

== ENCOUNTER → 2023-09-19 15:55 | Outpatient (BNVA) | payer MEDICARE, SELFPAY | PROVIDERS: PCP Internal Medicine; Visit Provider Surgery | DX: L76.34 Postprocedural seroma of skin and subcutaneous tissue following other procedure (principal) | CPT/HCPCS: 99212 ==

== ENCOUNTER 2023-09-26 14:08 | Outpatient (AMB) | payer MEDICARE, SELFPAY ==
--- NOTE | 2023-09-26 14:12 | MHC.OFFVIS ---
Vital Signs 09/26/23 14:13 Height 6 ft Weight 323 lb 13.745 oz BMI 43.9 Intake Visit Reasons: seroma on thigh Intake Note: This patient presents for a seroma on the thigh, possible aspiration. Patient c/o; reports no complaints. Regulatory Consultant Required: No Accompanied by: Self / Same As Patient Allergies No Known Allergies Allergy (Verified 09/19/23 16:05) Medication List - Last Reconciled 09/26/23 by Edson Modi MD cyanocobalamin (vitamin B-12) (Vitamin B-12) 1,000 mcg PO DAILY ergocalciferol (vitamin D2) 1,000 units PO DAILY folic acid 1 mg PO DAILY multivitamin 1 tab PO DAILY zanubrutinib 160 mg (2 x 80 mg) PO BID HPI HPI seroma on thigh: Details: He is here for follow-up for his seroma. He had undergone excision of a subcutaneous mass from the left medial thigh last month. He had developed a seroma and had aspirated this last week He said he has had some slow accumulation of fluid and he wants this we aspirated because of discomfort. He feels well overall. 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) Hypercholesterolemia HTN (hypertension) Prostate cancer Surgical History H/O colonoscopy H/O removal of cyst Hx of biopsy History of knee replacement procedure of left knee H/O toe surgery H/O submandibular gland removal H/O arthroscopic knee surgery Hx of cholecystectomy Family History Mother Cardiac disease Father Cirrhosis of liver Sister Neuropathy Hypertension Other No family history of cancer Social History Household Members: Spouse Housing: House Are you a primary neonatal intensive care nurse to a significant other at home: No Do you presently have visiting nurse or other home services: No Alcohol intake: current Alcohol intake frequency: does not drink Comment: COUNTS CORRECT Patient Tobacco Use Status: Never used Tobacco e-Cigarette/Vaping Use: Never Used Second Hand Smoke Exposure: No Advance Directives Date on File: 09/01/20 service: Yes Current occupational status: retired Current occupation: [employer] Cognitive needs: Yes (walker/cane) Hearing needs: No Vision needs: Yes (glasses) Review of Systems Const Denies chills and Denies fever(s) Card Denies chest pain Resp Denies cough GI Denies abdominal pain Physical Exam Vital Signs: BMI result Body Mass Index 43.9 Const General: comfortable and no acute distress Resp Effort & Inspection: normal respiratory effort Cardio Rate: regular rate Extrem Other: Soft, boggy mass on the left medial thigh from her previous excision Office Procedures FNAB Details: He was placed in reclining position with the left leg abducted. The area of the seroma was prepped and draped. I used a gauge 18 needle to aspirate the fluid. Serosanguineous fluid was removed. About 280 cc of this was aspirated He tolerated procedure well. Informed consent given: Yes Anesthesia: none Needle size: 18 G Aspiration content: other (Serosanguineous) Patient tolerated procedure: well Complications: No Assessment & Plan Assessment & Plan (1) Postprocedural seroma of skin and subcutaneous tissue following other procedure: Code(s): L76.34 - Postprocedural seroma of skin and subcutaneous tissue following other procedure Category: Medical Plan: I aspirated this and about 280 cc of seromatous fluid was evacuated. I told him that this may continue to reaccumulate down the line. If he gets uncomfortable with the fluid collection, he is welcome to come back to the office to have we aspiration He has comfortable with the plan. Coding Level of Care Code Procedure Only Diagnoses Postprocedural seroma of skin and subcutaneous tissue following other procedure L76.34
[2023-09-26 14:13] VITALS: BMI 43.9
== END 2023-09-26 14:57 | disposition home or self-care (01) ==
PROVIDERS: PCP Internal Medicine; Visit Provider Surgery
DX: L76.34 Postprocedural seroma of skin and subcutaneous tissue following other procedure (principal)
CPT/HCPCS: 99024

== ENCOUNTER → 2023-09-26 14:08 | Outpatient (BNVA) | payer MEDICARE, SELFPAY | PROVIDERS: PCP Internal Medicine; Visit Provider Surgery | DX: L76.34 Postprocedural seroma of skin and subcutaneous tissue following other procedure (principal) | CPT/HCPCS: 10160; 99212 ==

== ENCOUNTER 2023-09-30 10:38 | Outpatient (AMB) | payer MEDICARE, SELFPAY ==
--- NOTE | 2023-09-30 10:42 | MHC.OFFVIS ---
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 Patient expresses he has been having this on going problem for about 3 months. When he makes a fist and opens his left hand back up his middle finger locks in place and he says he has to manually assist it to straighten out. He does not have pain but states it is a bother to him. Denies recent injury, numbness and tingling. 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 Patient reports that this has been ongoing for 2-3 months. Patient reports consistent locking and catching, not associated with pain. Patient states that this has become more persistent and bothersome over this time period. Patient reports no numbness or tingling in his L hand at this time. No other acute complaints at this time. 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) Hypercholesterolemia HTN (hypertension) Prostate cancer Surgical History H/O colonoscopy H/O removal of cyst Hx of biopsy History of knee replacement procedure of left knee H/O toe surgery H/O submandibular gland removal H/O arthroscopic knee surgery Hx of cholecystectomy Family History Mother Cardiac disease Father Cirrhosis of liver Sister Neuropathy Hypertension Other No family history of cancer Social History Household Members: Spouse Housing: House Are you a primary healthcare or medical to a significant other at home: No Do you presently have visiting nurse or other home services: No Alcohol intake: current Alcohol intake frequency: does not drink Comment: COUNTS CORRECT Patient Tobacco Use Status: Never used Tobacco e-Cigarette/Vaping Use: Never Used Second Hand Smoke Exposure: No Advance Directives Date on File: 09/01/20 service: Yes Current occupational status: retired Current occupation: [employer] Cognitive needs: Yes (walker/cane) Hearing needs: No Vision needs: Yes (glasses) Review of Systems Const All systems reviewed & are unremarkable except as noted in HPI and below Physical Exam Const Other: Patient is alert, oriented, cooperative, and in no acute distress HEENT Head: Yes normocephalic and Yes atraumatic Resp Effort & Inspection: normal respiratory effort and able to speak in complete sentences Cardio Jugular venous distension: no JVD Neuro General: gait normal Cognition (Neuro): normal cognition Extrem Other: Patient is alert, oriented, and in no acute distress. Neuro: Median, ulnar, radial nerves motor and sensory intact and sensation is normal to the tips of all digits. Vascular: Cap refill brisk Pain: Patient reports mild tenderness to palpation over the A1 prema of the L MF ROM: Visible and palpable locking and catching of the left middle finger, requiring passive extension Skin: No lacerations or abrasions. General: No ecchymosis, erythema, or evidence of infection. Psych: Appears grossly normal Affect normal Attitude cooperative Psych Appearance: grossly normal Mental Status: mental status grossly normal Office Procedures Injection-Therapetic Trigger Single Point: 90743-Rzfoxax point injection, 1 or 2 Left middle trigger finger injection Assessment & Plan Assessment & Plan (1) Trigger finger, left middle finger: Code(s): M65.332 - Trigger finger, left middle finger Category: Medical Plan 1. Trigger finger, left middle finger Treatment options were discussed with the patient today Patient would like to proceed with a steroid injection at this time The risks and benefits of a steroid injection including but not limited to risk of damage to blood vessels, nerves, tendons, infection, skin bleaching, failure to improve symptoms, increased pain, and possible need for further injections or other intervention were discussed with the patient and the patient wishes to proceed with the steroid injection. Once consent was obtained, I sterilely prepped the area over the A1 prema of the flexor tendon sheath of the left middle finger. I then injected the flexor tendon sheath with a combination of 1 mL of dexamethasone (4mg/ml), and 1% lidocaine. The patient tolerated the procedure well with no complications. If the patient continues to have locking and catching 4-6 weeks following this injection, they may call to schedule appointment to discuss alternative treatment options Follow-up prn Coding Level of Care Code New Pt Level 3 (73802) Diagnoses Trigger finger, left middle finger M65.332 CPT Codes Details - Trigger Single Point: 29779-Omgrlbq point injection, 1 or 2 ([id number])
== END 2023-09-30 11:22 | disposition home or self-care (01) ==
PROVIDERS: PCP Internal Medicine
DX: M65.332 Trigger finger, left middle finger (principal)
CPT/HCPCS: 20550; 99203

== ENCOUNTER → 2023-09-30 10:38 | Outpatient (BNVA) | payer MEDICARE, SELFPAY | PROVIDERS: PCP Internal Medicine | DX: M65.332 Trigger finger, left middle finger (principal) | CPT/HCPCS: 20550; 99202; J1100 ==

== ENCOUNTER 2023-10-03 09:16 | Outpatient (AMB) | payer MEDICARE, SELFPAY ==
--- NOTE | 2023-10-03 09:22 | A.OFFVIS_ITS ---
Vital Signs 10/03/23 09:30 Height 6 ft Weight 323 lb 13.745 oz BMI 43.9 Intake Visit Reasons: Seroma, ? aspiration Intake Note: This patient presents for an assessment for seroma, possible aspiration. Patient c/o; swelling, reports recurrent seroma. Technology Coordinator Required: No Accompanied by: Self / Same As Patient Allergies No Known Allergies Allergy (Verified 10/03/23 09:30) HPI HPI Seroma, ? aspiration: Details: He is here for aspiration of his seroma. He says that this had reaccumulated the past 3 days. He says that he had been doing well after aspiration last week. 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) Hypercholesterolemia HTN (hypertension) Prostate cancer Surgical History H/O colonoscopy H/O removal of cyst Hx of biopsy History of knee replacement procedure of left knee H/O toe surgery H/O submandibular gland removal H/O arthroscopic knee surgery Hx of cholecystectomy Family History Mother Cardiac disease Father Cirrhosis of liver Sister Neuropathy Hypertension Other No family history of cancer Social History Household Members: Spouse Housing: House Are you a primary care support representative to a significant other at home: No Do you presently have visiting nurse or other home services: No Alcohol intake: current Alcohol intake frequency: does not drink Comment: COUNTS CORRECT Patient Tobacco Use Status: Never used Tobacco e-Cigarette/Vaping Use: Never Used Second Hand Smoke Exposure: No Advance Directives Date on File: 09/01/20 service: Yes Current occupational status: retired Current occupation: [employer] Cognitive needs: Yes (walker/cane) Hearing needs: No Vision needs: Yes (glasses) Review of Systems Const Denies chills and Denies fever(s) Physical Exam Vital Signs: BMI result Body Mass Index 43.9 Const General: comfortable and no acute distress Extrem Other: boggy fluid collection, no cellulitis, on left medial thigh Office Procedures FNAB Details: He was placed in reclining position with the left thigh abducted. The area was prepped and draped. I used a gauge 18 needle to aspirate the seroma. Over 300 cc of this were aspirated. Deep serosanguineous fluid was removed. There was no bleeding. He tolerated procedure well. There were no immediate complications Informed consent given: Yes Needle size: 18 G Aspiration content: serous and bloody Patient tolerated procedure: well Complications: No Assessment & Plan Assessment & Plan (1) Postprocedural seroma of skin and subcutaneous tissue following other procedure: Code(s): L76.34 - Postprocedural seroma of skin and subcutaneous tissue following other procedure Category: Medical Plan: I aspirated about over 300 cc of deep serosanguineous fluid. He tolerated procedure well He says he will call again if this reaccumulates. Coding Level of Care Code Procedure Only Diagnoses Postprocedural seroma of skin and subcutaneous tissue following other procedure L76.34
[2023-10-03 09:30] VITALS: BMI 43.9
== END 2023-10-03 09:59 | disposition home or self-care (01) ==
PROVIDERS: PCP Internal Medicine; Visit Provider Surgery
DX: L76.34 Postprocedural seroma of skin and subcutaneous tissue following other procedure (principal)
CPT/HCPCS: 99024

== ENCOUNTER → 2023-10-03 09:16 | Outpatient (BNVA) | payer MEDICARE, SELFPAY | PROVIDERS: PCP Internal Medicine; Visit Provider Surgery | DX: L76.34 Postprocedural seroma of skin and subcutaneous tissue following other procedure (principal) | CPT/HCPCS: 99212 ==

== ENCOUNTER 2023-10-10 11:00 | Outpatient (AMB) | payer MEDICARE, SELFPAY ==
--- NOTE | 2023-10-10 11:35 | MHC.OFFVIS ---
Intake Visit Reasons: Seroma, ? aspiration Allergies No Known Allergies Allergy (Verified 10/10/23 11:50) HPI HPI Seroma, ? aspiration: Details: He is here for we aspiration of the seroma from his left medial side from previous excision. He denies any new complaints. He says that the seroma fluid reaccumulated about 3 days ago. 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) Hypercholesterolemia HTN (hypertension) Prostate cancer Surgical History H/O colonoscopy H/O removal of cyst Hx of biopsy History of knee replacement procedure of left knee H/O toe surgery H/O submandibular gland removal H/O arthroscopic knee surgery Hx of cholecystectomy Family History Mother Cardiac disease Father Cirrhosis of liver Sister Neuropathy Hypertension Other No family history of cancer Social History Household Members: Spouse Housing: House Are you a primary chronic care nurse to a significant other at home: No Do you presently have visiting nurse or other home services: No Alcohol intake: current Alcohol intake frequency: does not drink Comment: COUNTS CORRECT Patient Tobacco Use Status: Never used Tobacco e-Cigarette/Vaping Use: Never Used Second Hand Smoke Exposure: No Advance Directives Date on File: 09/01/20 service: Yes Current occupational status: retired Current occupation: [employer] Cognitive needs: Yes (walker/cane) Hearing needs: No Vision needs: Yes (glasses) Review of Systems Const Denies chills and Denies fever(s) Card Denies chest pain, Denies dyspnea and Denies dyspnea on exertion Resp Denies cough, Denies dyspnea and Denies dyspnea on exertion GI Denies hematochezia and Denies change in bowel habits Denies hematuria and Denies difficulty urinating Musc Denies back pain and Denies limited range of motion Neuro Denies focal weakness and Denies convulsions Psych Denies depression and Denies mood swings Physical Exam Const General: comfortable and no acute distress Resp Effort & Inspection: normal respiratory effort Extrem Other: Boggy fluid collection on the left medial side on the previous excision site, consistent with a seroma Office Procedures FNA Biopsy FNA Biopsy Details: I prepped and draped the area of the large seroma on the left medial thigh proximally. I used a gauge 18 needle to aspirate the contents. This was dark, deep serosanguineous fluid. About 300 cc was aspirated I applied thick dressings on the area. He tolerated procedure well. FNA Biopsy 1: [id number] Biopsy, 1st lesion w/o image All charges added?: Procedure code (CPT) selection complete Assessment & Plan Assessment & Plan (1) Postprocedural seroma of skin and subcutaneous tissue following other procedure: Code(s): L76.34 - Postprocedural seroma of skin and subcutaneous tissue following other procedure Category: Medical Plan: I agree aspirated the contents of the seroma using a gauge 18 needle. He can come back to the office for follow-up if he requires further reaspiration down the line. Coding Level of Care Code Procedure Only Diagnoses Postprocedural seroma of skin and subcutaneous tissue following other procedure L76.34 CPT Codes FNA Biopsy - FNA Biopsy 1: [id number] Biopsy, 1st lesion w/o image ([id number])
--- NOTE | 2023-10-10 11:35 | MHC.OFFVIS ---
Intake Visit Reasons: Seroma, ? aspiration Intake Note: This patient presents for an assessment for aspiration for a seroma left thigh. Patient c/o; reports no changes. 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) Hypercholesterolemia HTN (hypertension) Prostate cancer Surgical History H/O colonoscopy H/O removal of cyst Hx of biopsy History of knee replacement procedure of left knee H/O toe surgery H/O submandibular gland removal H/O arthroscopic knee surgery Hx of cholecystectomy Family History Mother Cardiac disease Father Cirrhosis of liver Sister Neuropathy Hypertension Other No family history of cancer Social History Household Members: Spouse Housing: House Are you a primary health care assistant to a significant other at home: No Do you presently have visiting nurse or other home services: No Alcohol intake: current Alcohol intake frequency: does not drink Comment: COUNTS CORRECT Patient Tobacco Use Status: Never used Tobacco e-Cigarette/Vaping Use: Never Used Second Hand Smoke Exposure: No Advance Directives Date on File: 09/01/20 service: Yes Current occupational status: retired Current occupation: [employer] Cognitive needs: Yes (walker/cane) Hearing needs: No Vision needs: Yes (glasses) Office Procedures FNA Biopsy FNA Biopsy Details: I prepped and draped the area of the large seroma on the left medial thigh proximally. I used a gauge 18 needle to aspirate the contents. This was dark, deep serosanguineous fluid. About 300 cc was aspirated I applied thick dressings on the area. He tolerated procedure well. FNA Biopsy 1: [id number] Biopsy, 1st lesion w/o image All charges added?: Procedure code (CPT) selection complete Assessment & Plan Assessment & Plan (1) Postprocedural seroma of skin and subcutaneous tissue following other procedure: Code(s): L76.34 - Postprocedural seroma of skin and subcutaneous tissue following other procedure Category: Medical Plan: Aspiration of the seroma was done. He tolerated procedure well. He understands that is a reaccumulate again. He will see me in the office wants this happens. Coding Level of Care Code Procedure Only Diagnoses Postprocedural seroma of skin and subcutaneous tissue following other procedure L76.34 CPT Codes FNA Biopsy - FNA Biopsy 1: [id number] Biopsy, 1st lesion w/o image ([id number])
--- NOTE | 2023-10-10 13:42 | A.OFFVIS_ITS ---
Intake Visit Reasons: Seroma, ? 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) Hypercholesterolemia HTN (hypertension) Prostate cancer Surgical History H/O colonoscopy H/O removal of cyst Hx of biopsy History of knee replacement procedure of left knee H/O toe surgery H/O submandibular gland removal H/O arthroscopic knee surgery Hx of cholecystectomy Family History Mother Cardiac disease Father Cirrhosis of liver Sister Neuropathy Hypertension Other No family history of cancer Social History Household Members: Spouse Housing: House Are you a primary critical care clinical nurse specialist to a significant other at home: No Do you presently have visiting nurse or other home services: No Alcohol intake: current Alcohol intake frequency: does not drink Comment: COUNTS CORRECT Patient Tobacco Use Status: Never used Tobacco e-Cigarette/Vaping Use: Never Used Second Hand Smoke Exposure: No Advance Directives Date on File: 09/01/20 service: Yes Current occupational status: retired Current occupation: [employer] Cognitive needs: Yes (walker/cane) Hearing needs: No Vision needs: Yes (glasses) Office Procedures FNA Biopsy FNA Biopsy Details: I prepped and draped the area of the large seroma on the left medial thigh proximally. I used a gauge 18 needle to aspirate the contents. This was dark, deep serosanguineous fluid. About 300 cc was aspirated I applied thick dressings on the area. He tolerated procedure well. FNA Biopsy 1: [id number] Biopsy, 1st lesion w/o image All charges added?: Procedure code (CPT) selection complete Assessment & Plan Assessment & Plan (1) Postprocedural seroma of skin and subcutaneous tissue following other procedure: Code(s): L76.34 - Postprocedural seroma of skin and subcutaneous tissue following other procedure Category: Medical Plan: Aspiration of seroma done as described Coding Level of Care Code Procedure Only Diagnoses Postprocedural seroma of skin and subcutaneous tissue following other procedure L76.34 CPT Codes FNA Biopsy - FNA Biopsy 1: [id number] Biopsy, 1st lesion w/o image ([id number])
== END 2023-10-10 11:49 | disposition home or self-care (01) ==
PROVIDERS: PCP Internal Medicine; Visit Provider Surgery
DX: L76.34 Postprocedural seroma of skin and subcutaneous tissue following other procedure (principal)
CPT/HCPCS: 99024

== ENCOUNTER → 2023-10-10 11:00 | Outpatient (BNVA) | payer MEDICARE, SELFPAY | PROVIDERS: PCP Internal Medicine; Visit Provider Surgery | DX: L76.34 Postprocedural seroma of skin and subcutaneous tissue following other procedure (principal) | CPT/HCPCS: 99212 ==

== ENCOUNTER 2023-10-17 09:11 | Outpatient (AMB) | payer MEDICARE, SELFPAY ==
--- NOTE | 2023-10-17 09:29 | A.OFFVIS_ITS ---
Intake Visit Reasons: seroma filling back up Intake Note: This patient presents for an aspiration for seroma of the left thigh. Patient /o; reports seroma has filled again, reports swelling and mild redness. 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 He says that he has been reaccumulating the past few days. He denies pain but does state that this causes a little bit of annoying discomfort. 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) Hypercholesterolemia HTN (hypertension) Prostate cancer Surgical History H/O colonoscopy H/O removal of cyst Hx of biopsy History of knee replacement procedure of left knee H/O toe surgery H/O submandibular gland removal H/O arthroscopic knee surgery Hx of cholecystectomy Family History Mother Cardiac disease Father Cirrhosis of liver Sister Neuropathy Hypertension Other No family history of cancer Social History Household Members: Spouse Housing: House Are you a primary customer care consultant to a significant other at home: No Do you presently have visiting nurse or other home services: No Alcohol intake: current Alcohol intake frequency: does not drink Comment: COUNTS CORRECT Patient Tobacco Use Status: Never used Tobacco e-Cigarette/Vaping Use: Never Used Second Hand Smoke Exposure: No Advance Directives Date on File: 09/01/20 service: Yes Current occupational status: retired Current occupation: [employer] Cognitive needs: Yes (walker/cane) Hearing needs: No Vision needs: Yes (glasses) Review of Systems Const Denies chills and Denies fever(s) Physical Exam Const Other: Looks well General: comfortable and no acute distress Resp Effort & Inspection: normal respiratory effort Extrem Other: Bogginess on the medial aspect of the previous excision site on the proximal left thigh has not with a seroma Office Procedures Aspiration of Seroma Details: The area was prepped and draped. I used a gauge 18 needle to aspirate the seromatous fluid. Over 20 cc of deep serosanguineous fluid was aspirated. Thick dressings were applied. He tolerated procedure well. Aspiration of Seroma: [id number] Seroma Aspiration All charges added?: Procedure code (CPT) selection complete Assessment & Plan Assessment & Plan (1) Postprocedural seroma of skin and subcutaneous tissue following other procedure: Code(s): L76.34 - Postprocedural seroma of skin and subcutaneous tissue following other procedure Category: Medical Plan: We aspiration was done again with note of about 200 cc of deep serosanguineous fluid aspirated. He tolerated procedure well. He will follow up in the office again for reaspiration if this reaccumulates. Coding Level of Care Code Procedure Only Diagnoses Postprocedural seroma of skin and subcutaneous tissue following other procedure L76.34 CPT Codes Aspiration of Seroma ([id number])
== END 2023-10-17 10:23 | disposition home or self-care (01) ==
LOC: HO.HGS 09:11
PROVIDERS: PCP Internal Medicine; Visit Provider Surgery
DX: L76.34 Postprocedural seroma of skin and subcutaneous tissue following other procedure (principal)
CPT/HCPCS: 99024

== ENCOUNTER → 2023-10-17 09:11 | Outpatient (BNVA) | payer MEDICARE, SELFPAY | PROVIDERS: PCP Internal Medicine; Visit Provider Surgery | DX: L76.34 Postprocedural seroma of skin and subcutaneous tissue following other procedure (principal) | CPT/HCPCS: 99212 ==

== ENCOUNTER 2023-10-28 18:45 | Emergency (ER) | payer MEDICARE, SELFPAY ==
[2023-10-28 19:15] VITALS: BP 189/82; PULSE 88; RESP 18; TEMP 36.3; O2SAT 93; BMI 43.4
[2023-10-28 20:46] LABS: Appearance Urine Cloudy; Color Urine Yellow; Glucose Urine UA Negative (Negative); Leukocyte Esterase Urine Moderate (2+) (Negative); Nitrite Urine Negative (Negative); PH 5.5 (5.0-9.0); Specific Gravity - Urine 1.025 (1.005-1.025); UMIC TRIGGER UACC YES; Urine Blood Large (3+) (Negative); Urine Ketones Trace mg/dL (Negative); Urine Protein 30 (1+) mg/dL (Neg-Trace)
[2023-10-28 20:48] LABS: Bacteria Urine None Seen (None Seen); Basophils Absolute Auto 0.1 X10*3/uL (0.0-0.2); Basophils Percent Auto 0.6 % (0-2); Eosinophils Absolute Auto 0.2 X10*3/uL (0.0-0.4); Hematocrit 37.9 % (42.0-52.0); Hemoglobin 12.3 g/dl (14.0-18.0); Hyaline Casts Urine 0-2 /LPF (0-2); Imm Gran Abs Auto 0.11 X10*3/uL (0.00-0.03); Imm Gran Pct Auto 0.5 % (0.0-0.4); MANUAL DIFF FLAG SCAN; Mean Corpuscular HGB Conc 32.5 g/dl (31.0-36.0); Mean Corpuscular Hemoglobin 29.1 pg (27.0-33.0); Mean Corpuscular Volume 89.6 fL (80.0-98.0); Mean Platelet Volume 12.1 fL (9.4-12.4); Monocytes Absolute Auto 0.8 X10*3/uL (0.1-1.2); Monocytes Percent Auto 3.9 % (2-11); Neutrophils Absolute Auto 6.1 x10*3/uL (2.0-8.3); Platelet Count 194 X10*3/uL (160-400); RBC Urine >20 /HPF (0-2); Red Blood Count 4.23 X10*6/uL (4.60-5.80); Red Cell Distribution Width 15.9 % (11.0-16.0); SCAN SMEAR FLAG 1; Squamous Epithelial Cell Urine 0-2 /HPF (0-2); UACC Culture Trigger YES; WBC Urine >50 /HPF (0-5); White Blood Count 21.1 X10*3/uL (4.8-10.8)
[2023-10-28 20:56] LABS: Anion Gap 14 (12-20); Blood Urea Nitrogen 17 mg/dL (9-16); Calcium 9.1 mg/dL (8.4-10.2); Carbon Dioxide 24 mmol/L (22-29); Chloride 108 mmol/L (96-108); Creatinine Clr Calc Pharmacy 96.3; Estimated Glomerular Filt Rate > 60; Glucose Random 129 mg/dL (60-115); Potassium 4.1 mmol/L (3.3-5.1); Sodium 142 mmol/L (135-145)
[2023-10-28 21:01] LABS: Lymphocytes Absolute Auto 13.7 X10*3/uL (1.2-4.9)
[2023-10-28 21:14] LABS: SLIDE REVIEW VERIFIED
--- NOTE | 2023-10-28 23:53 | ED_ITS ---
HPI - Male Genitourinary General Chief complaint: Urogenital-Male Stated complaint: blood in urine, chemo patient Time Seen by Provider: 10/28/23 23:53 History of Present Illness ED Provider: Jean HCETOR Narrative: The patient is a 77-year-old male who is currently receiving chemotherapy for CLL. He says he urinated this evening and noticed a blood clot in his urine and some blood-tinged urine. He does not feel ill otherwise. No fever, sweats, chills. No nausea or vomiting. He did not have any dysuria or frequency. He says that he had a urinary tract infection last month with a similar presentation. On that occasion he had a urine culture that was positive for Enterobacter cloacae. He had initially been started on cephalexin but was switched to Macrobid. He did well on that antibiotic. No fever, sweats, chills. No nausea or vomiting. No flank pain. Related Data Home Medications ?Medication ?Instructions ?Recorded ?Confirmed ergocalciferol (vitamin D2) 1,000 1,000 unit PO DAILY 04/17/20 10/17/23 unit capsule multivitamin 1 tab PO DAILY 10/07/21 10/17/23 cyanocobalamin (vitamin B-12) 1,000 mcg PO DAILY 05/11/22 10/17/23 1,000 mcg tablet (Vitamin B-12) folic acid 1 mg tablet 1 mg PO DAILY 01/10/23 10/17/23 Previous Rx's ?Medication ?Instructions ?Recorded zanubrutinib 80 mg capsule 160 mg (2 x 80 mg) PO BID #120 caps 06/04/23 nitrofurantoin 100 mg PO BID #14 caps 10/29/23 monohydrate/macrocrystals 100 mg capsule (Macrobid) Allergies Allergy/AdvReac Type Severity Reaction Status Date / Time No Known Allergies Allergy Verified 10/28/23 19:18 Review of Systems 2 Review of Systems: Yes all other systems are reviewed and are negative PMFSH Past Medical History Medical History Seroma of skin or subcutaneous tissue after non-dermatologic procedure Postprocedural seroma of skin and subcutaneous tissue following other procedure Anemia Sleep apnea Hx of radiation therapy History of chemotherapy Mass of thigh Subcutaneous mass of left lower extremity Diverticular disease Depression Obesity (BMI 30-39.9) Chronic lymphocytic leukemia Plantar fasciitis Actinic keratosis Osteoarthritis Elevated PSA 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) Hypercholesterolemia HTN (hypertension) Prostate cancer Surgical History H/O colonoscopy H/O removal of cyst Hx of biopsy History of knee replacement procedure of left knee H/O toe surgery H/O submandibular gland removal H/O arthroscopic knee surgery Hx of cholecystectomy Family History Family History Mother Cardiac disease Father Cirrhosis of liver Sister Neuropathy Hypertension Other No family history of cancer Social History Social History Household Members: Spouse Housing: House Are you a primary healthcare analyst to a significant other at home: No Do you presently have visiting nurse or other home services: No Alcohol intake: current Alcohol intake frequency: does not drink Comment: COUNTS CORRECT Patient Tobacco Use Status: Never used Tobacco Smoked in Last 30 Days: No e-Cigarette/Vaping Use: Never Used Second Hand Smoke Exposure: No Use of substances other than those prescribed or required for medical reasons: No Advance Directives: Yes Advance Directives on File: Yes Advance Directives Date on File: 09/01/20 Do you have a plan to hurt others: No Plan service: Yes Current occupational status: retired 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 He looks somewhat chronically ill, but he is awake, alert, pleasant, cooperative. He does not appear obviously acutely ill or in distress in any way. HEENT: Other: Face is symmetrical. Mucus membranes moist. Eyes: Alignment and Position: alignment normal Periorbital: periorbital findings normal Eyelids: Yes eyelids normal Conjunctivae: conjunctivae normal EOM: EOMs intact bilaterally Neck: Neck: Yes no lymphadenopathy and Yes no JVD Resp: Effort & Inspection: normal respiratory effort Auscultation: clear to auscultation bilaterally Cardio: Rate: regular rate Rhythm: regular rhythm Heart sounds: S1 normal heart sound present and S2 normal heart sound present GI: Other: Soft, non-tender. : General: Yes no CVA tenderness Back/Spine/Pelvis: Back: no CVA tenderness Skin: Other: Pale and dry Neuro: Other: Awake, alert, pleasant, normally oriented, cranial nerves grossly intact, moving extremities normally. Extrem: Other: The patient's lower extremities seem to have some chronic edema. No significant asymmetry or pitting. Medications Administered Discontinued Medications Generic Name Dose Route Start Last Admin Trade Name Freq PRN Reason Stop Dose Admin Nitrofurantoin Macrocrystals 100 mg 10/29/23 03:56 10/29/23 04:04 Nitrofurantoin Monohyd/M-Cryst 100 Mg Capsule PO 10/29/23 03:57 100 mg ONCE ONE Administration Medical Decision Making Medical Decision Making [facility] Narrative: The patient is a very pleasant 77-year-old who is receiving treatment for chronic lymphocytic leukemia. He has no fever. Aside from seeing that he had hematuria. He does not have any other symptoms. No fever, sweats, chills, no nausea, vomiting, no flank pain. His physical exam seems benign. His urinalysis is consistent with a UTI. ?Perhaps he has some degree of hemorrhagic cystitis. He does not seem systemically ill in any way. The patient had a UTI a month ago from which he grew enterobacter cloacae which had no identified antibiotic resistance. ?he will therefore be started on Macrobid. He should follow up with his regular doctors. Lab Data 10/28/23 20:29 10/28/23 20:29 Labs: Lab Results 10/28/23 Range/Units 20:29 WBC 21.1 H (4.8-10.8) X10*3/uL RBC 4.23 L (4.60-5.80) X10*6/uL Hgb 12.3 L (14.0-18.0) g/dl Hct 37.9 L (42.0-52.0) % MCV 89.6 (80.0-98.0) fL MCH 29.1 (27.0-33.0) pg MCHC 32.5 (31.0-36.0) g/dl RDW 15.9 (11.0-16.0) % Plt Count 194 (160-400) X10*3/uL MPV 12.1 (9.4-12.4) fL Immature Gran % (Auto) 0.5 H (0.0-0.4) % Neut % (Auto) 29.0 L (45-73) % Lymph % (Auto) 65.0 H (20-40) % [place] % (Auto) 3.9 (2-11) % Eos % (Auto) 1.0 (0-4) % Baso % (Auto) 0.6 (0-2) % Lymph # (Auto) 13.7 H (1.2-4.9) X10*3/uL [place] # (Auto) 0.8 (0.1-1.2) X10*3/uL Eos # (Auto) 0.2 (0.0-0.4) X10*3/uL Baso # (Auto) 0.1 (0.0-0.2) X10*3/uL Abs Immat Gran (auto) 0.11 H (0.00-0.03) X10*3/uL Absolute Neuts (auto) 6.1 (2.0-8.3) x10*3/uL Absolute Nucleated RBC 0.000 (0.0-0.012) X10*3/uL Nucleated RBC % (auto) 0.0 (0.0-0.2) /100WBC Smear Tech's Comments VERIFIED Sodium 142 (135-145) mmol/L Potassium 4.1 (3.3-5.1) mmol/L Chloride 108 (96-108) mmol/L Carbon Dioxide 24 (22-29) mmol/L Anion Gap 14 (12-20) BUN 17 H (9-16) mg/dL Creatinine 0.98 (0.5-1.4) mg/dL Estim Creat Clear Calc 96.3 Estimated GFR > 60 Random Glucose 129 H (60-115) mg/dL Calcium 9.1 (8.4-10.2) mg/dL Urine Color Yellow Urine Appearance Cloudy Urine pH 5.5 (5.0-9.0) Ur Specific [place] 1.025 (1.005-1.025) Urine Protein 30 (1+) H (Neg-Trace) mg/dL Urine Glucose (UA) Negative (Negative) mg/dL Urine Ketones Trace (Negative) mg/dL Urine Blood Large (3+) H (Negative) Urine Nitrite Negative (Negative) Ur Leukocyte Esterase Moderate (2+) H (Negative) Urine RBC >20 H (0-2) /HPF Urine WBC >50 H (0-5) /HPF Ur Squamous Epith Cells 0-2 (0-2) /HPF Urine Bacteria None Seen (None Seen) Hyaline Casts 0-2 (0-2) /LPF Discharge Plan Discharge Clinical Impression: Urinary tract infection Patient Disposition: Home, Self-Care Additional Instructions: I believe you have another urinary tract infection. Your has been restarted on an antibiotic, nitrofurantoin (Macrobid). Please take this antibiotic 2 times a day, approximately every 12 hours. Drink lot of fluids. Stay in touch with your regular doctor for additional advice as needed. Return to the emergency room if significantly worse. Prescriptions: New nitrofurantoin monohyd/m-cryst [Macrobid] 100 mg capsule 100 mg PO BID Qty: 14 0RF Rx Instructions: must administer with a meal/food No Action Vitamin D2 1,000 unit Capsule 1,000 unit PO DAILY cyanocobalamin (vitamin B-12) [Vitamin B-12] 1,000 mcg Tablet 1,000 mcg PO DAILY folic acid 1 mg Tablet 1 mg PO DAILY zanubrutinib 80 mg Capsule 160 mg PO BID Qty: 120 6RF multivitamin Tablet 1 tab PO DAILY Interventions: ED Discharge Assessment Last Done: 10/29/23 04:09 Discharge Date/Time: 10/29/23 04:09 Print Language: Bengali
[2023-10-29 00:24] VITALS: BP 181/87; PULSE 92; RESP 20; TEMP 36.9; O2SAT 95
[2023-10-29 02:22] VITALS: BP 143/82; PULSE 88; RESP 16; TEMP 36.7; O2SAT 94
[2023-10-29 04:04] VITALS: BP 161/78; PULSE 79; RESP 16; TEMP 36.5; O2SAT 95
[2023-10-29] MEDS: Nitrofurantoin Monohyd/M-Cryst 100 MG CAPSULE PO (04:04)
[2023-10-29 04:09] VITALS: BP 161/78; PULSE 79; RESP 16; TEMP 36.5; O2SAT 95
== END 2023-10-29 04:09 | disposition home or self-care (01) ==
PROVIDERS: Emergency Provider Emergency Medicine; PCP Internal Medicine
DX: N39.0 Urinary tract infection, site not specified (principal); E78.00 Pure hypercholesterolemia, unspecified; C91.10 Chronic lymphocytic leukemia of B-cell type not having achieved remission; C61 Malignant neoplasm of prostate; C44.90 Unspecified malignant neoplasm of skin, unspecified; Z87.440 Personal history of urinary (tract) infections
CPT/HCPCS: 36415; 80048; 81001; 85025; 87086; 87088; 87186; 99283; 99284

== ENCOUNTER 2023-11-03 10:56 | Outpatient (REF) | payer MEDICARE, SELFPAY ==
[2023-11-03 14:29] LABS: Basophils Absolute Auto 0.1 X10*3/uL (0.0-0.2); Basophils Percent Auto 0.5 % (0-2); Eosinophils Absolute Auto 0.2 X10*3/uL (0.0-0.4); Hematocrit 39.4 % (42.0-52.0); Hemoglobin 12.4 g/dl (14.0-18.0); Imm Gran Abs Auto 0.13 X10*3/uL (0.00-0.03); Imm Gran Pct Auto 0.6 % (0.0-0.4); Lymphocytes Percent Auto 69.6 % (20-40); MANUAL DIFF FLAG SCAN; Mean Corpuscular HGB Conc 31.5 g/dl (31.0-36.0); Mean Corpuscular Hemoglobin 28.6 pg (27.0-33.0); Mean Corpuscular Volume 90.8 fL (80.0-98.0); Mean Platelet Volume 12.8 fL (9.4-12.4); Monocytes Absolute Auto 0.6 X10*3/uL (0.1-1.2); Monocytes Percent Auto 2.8 % (2-11); Neutrophils Absolute Auto 5.4 x10*3/uL (2.0-8.3); Neutrophils Percent Auto 25.5 % (45-73); Platelet Count 203 X10*3/uL (160-400); Red Blood Count 4.34 X10*6/uL (4.60-5.80); Red Cell Distribution Width 15.8 % (11.0-16.0); SCAN SMEAR FLAG 1; White Blood Count 21.3 X10*3/uL (4.8-10.8)
[2023-11-03 14:33] LABS: Lymphocytes Absolute Auto 14.8 X10*3/uL (1.2-4.9)
[2023-11-03 14:48] LABS: Cholesterol 153 mg/dL (<200); HDL Cholesterol 34 mg/dL (>40); LDL Cholesterol Calculated 83 mg/dL (<100); Triglycerides 182 mg/dL (<150)
[2023-11-03 15:01] LABS: PSA,Total (Free>4and<10) < 0.10 ng/mL (0.00-4.00)
[2023-11-03 15:09] LABS: Free T4 (Free Thyroxine) 0.81 ng/dL (0.71-1.85); Thyroid Stimulating Hormone 3.04 uIU/mL (0.32-4.0)
[2023-11-03 15:14] LABS: Folate 16.7 ng/mL (> or = 4.0); Vitamin B12 459 pg/mL (200-900)
[2023-11-03 17:12] LABS: SLIDE REVIEW VERIFIED
== END 2023-11-03 10:57 | disposition home or self-care (01) ==
LOC: HO.WFDLDS 10:56
PROVIDERS: Visit Provider Internal Medicine
DX: E78.00 Pure hypercholesterolemia, unspecified (principal); C61 Malignant neoplasm of prostate; Z12.5 Encounter for screening for malignant neoplasm of prostate
CPT/HCPCS: 36415; 80061; 82607; 82746; 84153; 84439; 84443; 85025

== ENCOUNTER 2023-11-07 08:58 | Outpatient (AMB) | payer MEDICARE, SELFPAY ==
--- NOTE | 2023-11-07 09:01 | A.OFFVIS_ITS ---
Intake Visit Reasons: Seroma Filling up Intake Note: This patient presents for an aspiration for a seroma. Pt c/o; reports seroma filled up again. 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 He says that this has been getting heavier so he decided to come today. Denies any other complaints. 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) Hypercholesterolemia HTN (hypertension) Prostate cancer Surgical History H/O colonoscopy H/O removal of cyst Hx of biopsy History of knee replacement procedure of left knee H/O toe surgery H/O submandibular gland removal H/O arthroscopic knee surgery Hx of cholecystectomy Family History Mother Cardiac disease Father Cirrhosis of liver Sister Neuropathy Hypertension Other No family history of cancer Social History Household Members: Spouse Housing: House Are you a primary child care centre manager to a significant other at home: No Do you presently have visiting nurse or other home services: No Alcohol intake: current Alcohol intake frequency: does not drink Comment: COUNTS CORRECT Patient Tobacco Use Status: Never used Tobacco e-Cigarette/Vaping Use: Never Used Second Hand Smoke Exposure: No Advance Directives Date on File: 09/01/20 service: Yes Current occupational status: retired Current occupation: [employer] Cognitive needs: Yes (walker/cane) Hearing needs: No Vision needs: Yes (glasses) Review of Systems Const Denies chills and Denies fever(s) Card Denies chest pain Resp Denies cough GI Denies abdominal pain Physical Exam Const General: comfortable and no acute distress Resp Effort & Inspection: normal respiratory effort Cardio Rate: regular rate Extrem Other: Boggy large left medial thigh mass as before, consistent with seroma Office Procedures Aspiration of Seroma Details: The area was prepped and draped in no lidocaine was used. I used a gauge 18 needle into the seroma. I aspirated about 200 cc. He tolerated procedure well. Dressings were applied thereafter. Aspiration of Seroma: [id number] Seroma Aspiration All charges added?: Procedure code (CPT) selection complete Assessment & Plan Assessment & Plan (1) Seroma of skin or subcutaneous tissue after non-dermatologic procedure: Code(s): L76.34 - Postprocedural seroma of skin and subcutaneous tissue following other procedure Category: Medical Plan: I aspirated this again using a gauge 18 needle. About 200 cc of dark serosanguineous fluid was aspirated. He tolerated procedure well. Dressings were applied. He will come back to the office for we aspiration wants this reaccumulates. He also continues to see Dr. Oliva for his CLL. Coding Level of Care Code Est Pt Level 2 (68763) Diagnoses Seroma of skin or subcutaneous tissue after non-dermatologic procedure L76.34 CPT Codes Aspiration of Seroma ([id number])
== END 2023-11-07 09:55 | disposition home or self-care (01) ==
PROVIDERS: PCP Internal Medicine; Visit Provider Surgery
DX: L76.34 Postprocedural seroma of skin and subcutaneous tissue following other procedure (principal)
CPT/HCPCS: 99024

== ENCOUNTER → 2023-11-07 08:58 | Outpatient (BNVA) | payer MEDICARE, SELFPAY | PROVIDERS: PCP Internal Medicine; Visit Provider Surgery | DX: L76.34 Postprocedural seroma of skin and subcutaneous tissue following other procedure (principal) | CPT/HCPCS: 99212 ==

== ENCOUNTER 2023-11-08 10:34 | Outpatient (AMB) | payer MEDICARE, SELFPAY ==
[2023-11-08 10:49] VITALS: BP 140/86; PULSE 102; O2SAT 96; BMI 43.7
--- NOTE | 2023-11-08 10:49 | MHC.PC.OV ---
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 Accompanied by: Self / Same As Patient Allergies No Known Allergies Allergy (Verified 11/08/23 10:50) Medication List - Last Reconciled 11/08/23 by Charmaine Salamanca MD cyanocobalamin (vitamin B-12) (Vitamin B-12) 1,000 mcg PO DAILY ergocalciferol (vitamin D2) 1,000 units PO DAILY folic acid 1 mg PO DAILY multivitamin 1 tab PO DAILY zanubrutinib 160 mg (2 x 80 mg) PO BID Tobacco use date assessed: 11/08/23 Fall risk assessment: No Falls in past year Last assessed Fall Risk: 11/08/23 Dental Screening Dental Screen Date: 11/08/23 Did you have a dental visit in the last 12 months?: No Did you have a dental problem in the last 6 months where you did not have access to dental care?: No Was dental information given to patient?: Patient has dentist HPI pe HPI Details 78-year-old morbidly obese male with CLL, history of prostate cancer hypercholesterolemia impaired glucose tolerance peripheral vascular disease last seen in 04/09/2023. Patient is here for physical exam. Last colonoscopy done June 2015. Review of the notes has been follow-up with the surgeon regarding reaccumulation of seroma fluid from the medial thigh mass. Also noted ER visit October 27 due to hematuria diagnosis of UTI treated with Macrodantin. September also so left hand trigger middle finger by ortho had trigger point injection. Last note from Hematology-Oncology October 14 continue with chemotherapy. 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 [facility] Medical History Seroma of skin or subcutaneous tissue after non-dermatologic procedure Postprocedural seroma of skin and subcutaneous tissue following other procedure Anemia Sleep apnea Hx of radiation therapy History of chemotherapy Mass of thigh Subcutaneous mass of left lower extremity Diverticular disease Depression Obesity (BMI 30-39.9) Chronic lymphocytic leukemia Plantar fasciitis Actinic keratosis Osteoarthritis Elevated PSA 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) Hypercholesterolemia HTN (hypertension) Prostate cancer Surgical History H/O colonoscopy H/O removal of cyst Hx of biopsy History of knee replacement procedure of left knee H/O toe surgery H/O submandibular gland removal H/O arthroscopic knee surgery Hx of cholecystectomy Family History Mother Cardiac disease Father Cirrhosis of liver Sister Neuropathy Hypertension Other No family history of cancer Social History (Updated 11/08/23 @ 11:37 by Charmaine Salamanca MD) Household Members: Spouse Housing: House Are you a primary pet caregiver to a significant other at home: No Do you presently have visiting nurse or other home services: No Alcohol intake: former Comment: COUNTS CORRECT Patient Tobacco Use Status: Never used Tobacco e-Cigarette/Vaping Use: Never Used Second Hand Smoke Exposure: No Advance Directives Date on File: 09/01/20 service: Yes Current occupational status: retired Current occupation: [employer] Cognitive needs: Yes (walker/cane) Hearing needs: No Vision needs: Yes (glasses) Questionnaire PHQ-9 Over the last 2 weeks, how often have you been bothered by any of the following problems? 1. Little interest or pleasure in doing things: not at all 2. Feeling down, depressed, or hopeless: not at all 3. Trouble falling or staying asleep, or sleeping too much: not at all 4. Feeling tired or having little energy: not at all 5. Poor appetite or overeating: not at all 6. Feeling bad about yourself - or that you are a failure or have let yourself or your family down: not at all 7. Trouble concentrating on things, such as reading the newspaper or watching television: not at all 8. Moving or speaking so slowly that other people could have noticed. Or the opposite - being so fidgety or restless that you have been moving around a lot more than usual: not at all 9. Thoughts that you would be better off or of hurting yourself in some way: not at all Total score: 0 Depression Screening Interpretation: Negative Depression Screening Done: Yes Source: Developed by Drs. James Paulino, Mimi Andrae Hanks and colleagues, with an educational farooq from [employer]. Thrive Questionnaire Date Thrive assessed: 11/08/23 I am a: Patient What is your living situation today?: I have a steady place to live Within the past 12 months, did the food you bought not last and you didn't have the money to get more?: Never true Within the past 12 months, did you worry whether your food would run out before you got money to buy more?: Never true Do you have trouble paying for medicines?: No Do you have trouble getting transportation to medical appointments?: No Do you have trouble paying your heating and electricity bill?: No Do you have trouble taking care of your child, family member or friend?: No Do you have trouble with day-to-day activities such as bathing, preparing meals, shopping, managing finances, etc.?: No Are you currently unemployed and looking for a job?: No Are you interested in more education?: No Please select the resources that you would like help with: None Currently or been in a relationship where the following occur: No concerns reported THRIVE Score: 0 AUDIT C Alcohol Use Questionnaire (AUDIT-C) 1. How often do you have a drink containing alcohol?: Monthly or less 2. How many drinks containing alcohol do you have on a typical day when you are drinking?: 1 or 2 3. How often do you have six or more drinks on one occasion?: Never Total Score: 1 LUBA-7 AMB Questionnaire LUBA-7 Date LUBA - 7 assessed: 11/08/23 Feeling nervous, anxious, or on edge: 0 = Not at all Not being able to stop or control worryin = Not at all Worrying too much about different things: 0 = Not at all Trouble relaxin = Not at all Being so restless that it is hard to sit still: 0 = Not at all Becoming easily annoyed or irritable: 0 = Not at all Feeling afraid as if something awful might happen: 0 = Not at all Total LUBA-7 score (0-4 normal; 5-9 mild; 10-14 moderate; 15-21 severe): 0 Source: Developed by Drs. James Paulino, Andrae Harris and colleagues, with an educational farooq from [employer]. Review of Systems Const Denies poor appetite and Denies weakness Eyes Denies no additional complaints ENT Reports Normal hearing present, Denies dizziness, Denies nasal congestion, Denies tinnitus and Denies sore throat Card Denies chest pain, Denies syncope, Denies rapid heart rate and Denies dyspnea Resp Denies cough and Denies dyspnea GI Denies change in stool character, Reports constipation, Denies diarrhea, Denies nausea and Denies vomiting Denies dysuria and Denies urinary frequency Neuro Reports Normal hearing present, Denies confusion, Denies dizziness, Denies syncope and Denies weakness Psych Denies confusion Physical exam (Primary Care) Vital Signs: Last Vital Signs Pulse 102 H 11/08/23 10:49 BP 140/86 H 11/08/23 10:49 Pulse Ox 96 11/08/23 10:49 Oxygen Delivery Method Room Air 11/08/23 10:49 BMI result Body Mass Index 43.7 Tobacco/Smoking Status: Tobacco use Status Tobacco use date assessed 11/08/23 11/08/23 10:55 Patient Tobacco Use Status Never used Tobacco 11/08/23 10:55 e-Cigarette/Vaping Use Never Used 11/08/23 10:55 PHQ-9: PHQ-9 Score PHQ-9: Total score 0 11/08/23 10:55 Depression Screening Interpretation: Negative Thrive Assessment: Date of Thrive Assessment Date Thrive assessed 11/08/23 11/08/23 10:55 Currently or been in a relationship where the following occur: No concerns reported Const General: No confusion Orientation/consciousness: No confusion HENMT Head: Yes normocephalic Ears: external ears normal and TM's normal bilaterally Face and sinus: Yes normal facial exam Mouth: moist mucous membranes Throat: Yes tonsils normal Eyes Conjunctivae: conjunctivae normal Pupils: Equal, round and reactive pupils present and Pupil accommodation reflex normal Direct Ophthalmoscopy: normal light reflex Neck Neck: No lymphadenopathy Thyroid: Thyroid normal Chest Chest palpation & inspection: normal inspection of the chest Resp Effort & Inspection: normal respiratory effort and no audible wheezes Auscultation: clear to auscultation bilaterally, no crackles, no wheezes and lung sounds not diminished Cardio Rate: regular rate Rhythm: regular rhythm Peripheral pulses: radial pulses present and dorsalis pedis present GI Palpation (GI): no masses Auscultation: normal bowel sounds and normoactive bowel sounds Rectal Exam - Male: Yes deferred Skin General skin exam: no rashes or lesions noted Rashes: no rashes Neuro General: No confusion Cranial nerves: Yes Equal, round and reactive pupils present and Yes Normal hearing present Cognition (Neuro): normal cognition Gait exam (Neuro): Normal gait present Motor exam (neuro): 5/5 motor strength present throughout Deep tendon reflexes (DTR's): Right brachioradialis reflex intensity grade: 2+, Left brachioradialis reflex intensity grade: 2+, Right patellar reflex intensity grade: 2+ and Left patellar reflex intensity grade: 2+ Extrem General: No edema Assessment and Plan Assessment & Plan (1) Annual physical exam: Code(s): Z00.00 - Encounter for general adult medical examination without abnormal findings Plan: Patient is advised to eat healthy, keep well hydrated, keep active and have adequate sleep. (2) Seroma of skin or subcutaneous tissue after non-dermatologic procedure: Code(s): L76.34 - Postprocedural seroma of skin and subcutaneous tissue following other procedure Plan: Patient continues to follow-up with surgeon and has had drainage done (3) Impaired fasting blood sugar: Code(s): R73.01 - Impaired fasting glucose Plan: Decrease the amount of carbohydrate intake, pasta, bread, rice and potatoes are all sugar and that is aside from all the sweet stuff, remember that fruits are good but they are Sweet also. (4) Prostate cancer: Comment: January 2016 Dr. Thomas baires hormonal and radiation therapy with gold seed placement May 2016 Code(s): C61 - Malignant neoplasm of prostate Plan: Continue with Urology follow-up (5) Chronic lymphocytic leukemia: Comment: August 2013 flow cytometry, WBC 2 0 0 a Code(s): C91.10 - Chronic lymphocytic leukemia of B-cell type not having achieved remission Plan: Continue to follow-up with Hematology-Oncology (6) Hypercholesterolemia: Code(s): E78.00 - Pure hypercholesterolemia, unspecified Plan: Avoid fried foods, chicken skin, eggs, butter margarine, pastries and meat. Be it pork or beef they have a lot of cholesterol (7) Morbid obesity: Code(s): E66.01 - Morbid (severe) obesity due to excess calories Plan: Diet and exercise (8) Recurrent UTI: Code(s): N39.0 - Urinary tract infection, site not specified (9) Tinnitus: Code(s): H93.19 - Tinnitus, unspecified ear Orders: Orders CT abdomen pelvis wo/w IV con Today N39.0 - Urinary tract infection, site not specified Creatinine Today N39.0 - Urinary tract infection, site not specified Blood Urea Nitrogen Today N39.0 - Urinary tract infection, site not specified Coding Level of Care Code Est Pt Prev Care >65y(55002) Diagnoses Annual physical exam Z00.00 Seroma of skin or subcutaneous tissue after non-dermatologic procedure L76.34 Impaired fasting blood sugar R73.01 Prostate cancer C61 Chronic lymphocytic leukemia C91.10 Hypercholesterolemia E78.00 Morbid obesity E66.01 Recurrent UTI N39.0 Tinnitus H93.19
== END 2023-11-08 11:57 | disposition home or self-care (01) ==
PROVIDERS: PCP Internal Medicine; Visit Provider Internal Medicine
DX: Z00.00 Encounter for general adult medical examination without abnormal findings (principal); C61 Malignant neoplasm of prostate; E66.01 Morbid (severe) obesity due to excess calories; Z68.41 Body mass index [BMI] 40.0-44.9, adult; C91.10 Chronic lymphocytic leukemia of B-cell type not having achieved remission; L76.34 Postprocedural seroma of skin and subcutaneous tissue following other procedure; R73.01 Impaired fasting glucose; E78.00 Pure hypercholesterolemia, unspecified; N39.0 Urinary tract infection, site not specified
CPT/HCPCS: 99397

== ENCOUNTER 2023-11-16 09:53 | Outpatient (AMB) | payer MEDICARE, SELFPAY ==
--- NOTE | 2023-11-16 10:11 | MHC.OFFVIS ---
Vital Signs 11/16/23 10:13 Height 6 ft Weight 322 lb BMI 43.7 Handedness Right Intake Visit Reasons: OV- Left trigger MF last inj 09/30/23 Intake Note: James is a 78 year old right hand dominant male who presents today for a follow up of his left middle finger trigger s/p Left MF Injection on 09/30/23. Patient reports this injection provided him no relief. He states his left middle finger continues to lock. Patient would like to discuss other treatment options. Allergies No Known Allergies Allergy (Verified 11/16/23 10:13) HPI HPI OV- Left trigger MF last inj 09/30/23: Details: Patient is a 78-year-old male who presents for follow-up for left middle finger trigger finger who is status post trigger injection, date of injection 09/30/2023. Patient reports that he has not experienced any relief of the triggering of his left middle finger under like to explore other treatment options at this time. Patient denies any numbness or tingling in the left upper extremity. No other acute complaints or concerns at this time. 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) Hypercholesterolemia HTN (hypertension) Prostate cancer Surgical History H/O colonoscopy H/O removal of cyst Hx of biopsy History of knee replacement procedure of left knee H/O toe surgery H/O submandibular gland removal H/O arthroscopic knee surgery Hx of cholecystectomy Family History Mother Cardiac disease Father Cirrhosis of liver Sister Neuropathy Hypertension Other No family history of cancer Social History Household Members: Spouse Housing: House Are you a primary healthcare market consultant to a significant other at home: No Do you presently have visiting nurse or other home services: No Alcohol intake: former Comment: COUNTS CORRECT Patient Tobacco Use Status: Never used Tobacco e-Cigarette/Vaping Use: Never Used Second Hand Smoke Exposure: No Advance Directives Date on File: 09/01/20 service: Yes Current occupational status: retired Current occupation: [employer] Cognitive needs: Yes (walker/cane) Hearing needs: No Vision needs: Yes (glasses) Physical Exam Vital Signs: BMI result Body Mass Index 43.7 Const Other: Patient is alert, oriented, cooperative, and in no acute distress HEENT Head: Yes normocephalic and Yes atraumatic Resp Effort & Inspection: normal respiratory effort and able to speak in complete sentences Cardio Jugular venous distension: no JVD Neuro General: gait normal Cognition (Neuro): normal cognition Extrem Other: Patient is alert, oriented, and in no acute distress. Neuro: Median, ulnar, radial nerves motor and sensory intact and sensation is normal to the tips of all digits. Vascular: Cap refill brisk Pain: Patient reports mild tenderness to palpation over the A1 prema of the L MF ROM: Visible and palpable locking and catching of the left middle finger, requiring passive extension Skin: No lacerations or abrasions. General: No ecchymosis, erythema, or evidence of infection. Psych: Appears grossly normal Affect normal Attitude cooperative Psych Appearance: grossly normal Mental Status: mental status grossly normal Assessment & Plan Assessment & Plan (1) Trigger finger, left middle finger: Code(s): M65.332 - Trigger finger, left middle finger Category: Medical Plan 1. Trigger finger, left middle finger I educated the patient about the condition. I discussed both operative and nonoperative treatment options. The patient would like to proceed with surgery. The risks and benefits of operative treatment were discussed with the patient and the patient wishes to proceed with surgery. These risks include, but are not limited to, risk of damage to blood vessels, nerves, tendons, infection, recurrence, incomplete relief of preoperative symptoms, persistent pain, possible need for further surgery, and the risks associated with regional blocks and/or anesthesia. Plan is to take the patient to the operating room at some point in the next few weeks for the following procedures: 1. Left middle finger trigger release under local anesthesia All of the preoperative paperwork including the consent was discussed today. All of the patient's questions were answered in the clinic today. The patient understands that they will be in contact with our operating room surgical technician to discuss scheduling their procedure. Patient denies diabetes, blood thinners, asthma, heart issues, lung issues, kidney issues, or current smoking. The patient does report that he is currently on a chronic chemotherapy drug for CLL, but states that he has had surgery multiple times while on this medication without complication. After consultation and discussion with Dr. Chapin, patient should speak to his oncologist who prescribes this medication for determination if he needs to stop prior to surgery. Our office will also reach out to his oncologist to see if holding the medication is necessary prior to surgery. Coding Level of Care Code Est Pt Level 4 (73722) Diagnoses Trigger finger, left middle finger M65.332
[2023-11-16 10:13] VITALS: BMI 43.7
== END 2023-11-16 13:05 | disposition home or self-care (01) ==
PROVIDERS: PCP Internal Medicine
DX: M65.332 Trigger finger, left middle finger (principal)
CPT/HCPCS: 99214

== ENCOUNTER → 2023-11-16 09:53 | Outpatient (BNVA) | payer MEDICARE, SELFPAY | PROVIDERS: PCP Internal Medicine | DX: M65.332 Trigger finger, left middle finger (principal) | CPT/HCPCS: 99212 ==

== ENCOUNTER 2023-11-26 20:24 | Emergency (ER) | payer MEDICARE, SELFPAY ==
--- NOTE | ~2023-11-26 | CT_ITS ---
EXAMINATION: CT ABDOMEN AND PELVIS WITHOUT CONTRAST CLINICAL INFORMATION: Rudy hematuria COMPARISON: None available. TECHNIQUE: Multidetector volumetric imaging was performed from the superior aspect of the liver through the pubic symphysis. Sagittal and coronal reformatted images were obtained on the technologist's workstation. This CT examination was performed using dose optimization techniques as appropriate, variously including the following: *Automated exposure control *Adjustment of mA and/or kV according to patient size (this includes techniques or standardized protocols for targeted exams where dose is matched to indication/reason for exam; i.e. extremities or head) *Use of iterative reconstruction technique DLP: 1610 mGy-cm FINDINGS: LUNG BASES: There is a 5 mm medial left lower lobe nodule on image . LIVER, GALLBLADDER, AND BILIARY TREE: The liver demonstrates hypoattenuation consistent with steatosis. No focal hepatic lesion or biliary ductal dilatation is identified. Gallbladder is not visualized. PANCREAS: Mild fatty atrophy. SPLEEN: Unremarkable. ADRENAL GLANDS: Unremarkable. KIDNEYS AND URETERS: No hydronephrosis or obstructing calculus bilaterally. Nonspecific bilateral perinephric stranding. Right upper pole renal cyst measures approximately 2.4 cm; no follow-up recommended. Of note, the renal parenchyma is not adequately evaluated without intravenous contrast. BLADDER: Unremarkable. GASTROINTESTINAL TRACT: No evidence of bowel obstruction. Colonic diverticulosis is noted. No significant bowel wall thickening is seen. The appendix is unremarkable. No free fluid or free air is seen. ABDOMINAL WALL: Small fat-containing inguinal hernias. Right testicle appears somewhat retracted within the lower inguinal canal. LYMPH NODES: Borderline enlarged lymph node adjacent to the distal esophagus, nonspecific. VASCULAR: There is atherosclerotic calcification along the aorta and iliac arteries. PELVIC VISCERA: Metallic prostatic seeds are noted. OSSEOUS STRUCTURES: Degenerative changes are noted in the spine. CT/CT abdomen pelvis wo IV con IMPRESSION: 1. No hydronephrosis or obstructing calculus. Of note, the renal parenchyma is not adequately evaluated without intravenous contrast. 2. Borderline enlarged lymph node adjacent to the distal esophagus. This could reflect manifestation of patient's known CLL. Alternatively, neoplastic etiology such as from adjacent esophageal malignancy cannot be excluded and could be further assessed with endoscopy. Follow-up CT imaging in 3-6 months could be performed for reevaluation of this node. 3. Nonspecific 5 mm left lower lobe lung nodule. According to the UPDATED 2017 Fleischner Society recommendations, the advised follow-up imaging for solid nodules < 6 mm is: LOW RISK PATIENT: No routine follow-up. HIGH RISK PATIENT: Optional CT at 12 months. Electronically signed by: Carlito Pulliam MD 11/27/2023 02:05 AM EDT
[2023-11-26 20:30] VITALS: BP 173/80; PULSE 90; RESP 16; TEMP 37.1; O2SAT 94; BMI 43.9
--- NOTE | 2023-11-26 20:41 | ED_ITS ---
HPI - Male Genitourinary General Chief complaint: Urogenital-Male Stated complaint: blood in the urine, UTI? Time Seen by Provider: 11/26/23 23:15 Source: patient Mode of arrival: ambulatory Limitations: no limitations History of Present Illness ED Provider: howard HECTOR Narrative: Patient with history of CLL has recurrent UTI for last 2 months treated with Macrobid for enterococcal infection comes here as today he noticed blood clots in the urine also having urgency frequency no fever no chills with does have history of CLL Related Data Home Medications ?Medication ?Instructions ?Recorded ?Confirmed ergocalciferol (vitamin D2) 1,000 1,000 unit PO DAILY 04/17/20 11/25/23 unit capsule multivitamin 1 tab PO DAILY 10/07/21 11/25/23 cyanocobalamin (vitamin B-12) 1,000 mcg PO DAILY 05/11/22 11/25/23 1,000 mcg tablet (Vitamin B-12) folic acid 1 mg tablet 1 mg PO DAILY 01/10/23 11/25/23 Previous Rx's ?Medication ?Instructions ?Recorded zanubrutinib 80 mg capsule 160 mg (2 x 80 mg) PO BID #120 caps 06/04/23 ciprofloxacin HCl 500 mg tablet 500 mg PO BID #20 tabs 11/27/23 (Cipro) Allergies Allergy/AdvReac Type Severity Reaction Status Date / Time No Known Allergies Allergy Verified 11/26/23 20:30 Review of Systems 2 Review of Systems: Yes all other systems are reviewed and are negative PMFSH Past Medical History Medical History Seroma of skin or subcutaneous tissue after non-dermatologic procedure Postprocedural seroma of skin and subcutaneous tissue following other procedure Anemia Sleep apnea Hx of radiation therapy History of chemotherapy Mass of thigh Subcutaneous mass of left lower extremity Diverticular disease Depression Obesity (BMI 30-39.9) Chronic lymphocytic leukemia Plantar fasciitis Actinic keratosis Osteoarthritis Elevated PSA 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) Hypercholesterolemia HTN (hypertension) Prostate cancer Surgical History H/O colonoscopy H/O removal of cyst Hx of biopsy History of knee replacement procedure of left knee H/O toe surgery H/O submandibular gland removal H/O arthroscopic knee surgery Hx of cholecystectomy Family History Family History Mother Cardiac disease Father Cirrhosis of liver Sister Neuropathy Hypertension Other No family history of cancer Social History Social History Household Members: Spouse Housing: House Are you a primary medical care evaluation specialist to a significant other at home: No Do you presently have visiting nurse or other home services: No Alcohol intake: former Comment: COUNTS CORRECT Patient Tobacco Use Status: Never used Tobacco Smoked in Last 30 Days: No e-Cigarette/Vaping Use: Never Used Second Hand Smoke Exposure: No Use of substances other than those prescribed or required for medical reasons: No Advance Directives: Yes Advance Directives on File: Yes Advance Directives Date on File: 09/01/20 Do you have a plan to hurt others: No Plan service: Yes Current occupational status: retired 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 Oriented X3. No acute distress. Obese Eyes: PERRLA, No Nystagmus ENT: Pharynx normal. Oral Mucosa moist Neck: Normal inspection. Neck supple. CVS: Normal heart rate and rhythm. Pulses normal. Respiratory: No respiratory distress. Equal air entry bilateral, no wheezing/rales/rhonchi Abdomen: Soft and nontender. Bowel sounds are present, no mass palpable, no CVA tenderness Skin: Skin warm and dry. Normal skin color. Normal skin turgor. Extremities: No lower extremity edema. No calf tenderness Neuro: Oriented X 3. No motor deficit. Course Course Course Narrative: RME performed by Alejandra Ramos PA-C. Patient is a 78 year old assigned male at presenting to the emergency department with blood in his urine and requesting a CT scan. Patient states he gets recurrent UTIs and believes he has one now. Patient states that he was told by his primary care provider he needs a CT scan to figure out why he is getting so many UTIs and he would like that done tonight. Detailed physical exam and review of systems are deferred to the service delivery consultant. Labs ordered. Patient placed back in the waiting room pending room availability and results. Medications Administered Discontinued Medications Generic Name Dose Route Start Last Admin Trade Name Isabel PRN Reason Stop Dose Admin Levofloxacin 500 mg 11/27/23 01:41 11/27/23 01:49 Levofloxacin 500 Mg Tablet PO 11/27/23 01:42 500 mg ONCE ONE Administration Medical Decision Making Medical Decision Making MDM Narrative: Patient with recurrent UTI will prescribe Levaquin at this time CT scan of the abdomen is negative labs are stable otherwise advised to follow with urologist Lab Data MDM Lab Attestation statement: I reviewed the patient's lab results. 11/26/23 20:51 11/26/23 20:51 Labs: Lab Results 11/26/23 11/26/23 Range/Units 20:51 21:27 WBC 20.7 H (4.8-10.8) X10*3/uL RBC 4.02 L (4.60-5.80) X10*6/uL Hgb 11.6 L (14.0-18.0) g/dl Hct 36.5 L (42.0-52.0) % MCV 90.8 (80.0-98.0) fL MCH 28.9 (27.0-33.0) pg MCHC 31.8 (31.0-36.0) g/dl RDW 15.9 (11.0-16.0) % Plt Count 187 (160-400) X10*3/uL MPV 12.2 (9.4-12.4) fL Immature Gran % (Auto) 0.6 H (0.0-0.4) % Neut % (Auto) 27.2 L (45-73) % Lymph % (Auto) 66.1 H (20-40) % [place] % (Auto) 4.2 (2-11) % Eos % (Auto) 1.3 (0-4) % Baso % (Auto) 0.6 (0-2) % Lymph # (Auto) 13.6 H (1.2-4.9) X10*3/uL [place] # (Auto) 0.9 (0.1-1.2) X10*3/uL Eos # (Auto) 0.3 (0.0-0.4) X10*3/uL Baso # (Auto) 0.1 (0.0-0.2) X10*3/uL Abs Immat Gran (auto) 0.12 H (0.00-0.03) X10*3/uL Absolute Neuts (auto) 5.6 (2.0-8.3) x10*3/uL Absolute Nucleated RBC 0.000 (0.0-0.012) X10*3/uL Nucleated RBC % (auto) 0.0 (0.0-0.2) /100WBC Smear Tech's Comments VERIFIED Sodium 144 (135-145) mmol/L Potassium 4.3 (3.3-5.1) mmol/L Chloride 109 H (96-108) mmol/L Carbon Dioxide 27 (22-29) mmol/L Anion Gap 12 (12-20) BUN 16 (9-16) mg/dL Creatinine 0.99 (0.5-1.4) mg/dL Estim Creat Clear Calc 94.5 Estimated GFR > 60 Random Glucose 135 H (60-115) mg/dL Calcium 9.0 (8.4-10.2) mg/dL Total Bilirubin 0.3 (0.0-1.0) mg/dL AST 16 (5-37) U/L ALT 15 (0-40) U/L Alkaline Phosphatase 95 (39-117) U/L Total Protein 6.3 L (6.5-8.0) g/dL Albumin 3.7 (3.5-5.0) g/dL Urine Color Yellow Urine Appearance Cloudy Urine pH 5.5 (5.0-9.0) Ur Specific [place] 1.025 (1.005-1.025) Urine Protein 30 (1+) H (Neg-Trace) mg/dL Urine Glucose (UA) Negative (Negative) mg/dL Urine Ketones Trace (Negative) mg/dL Urine Blood Large (3+) H (Negative) Urine Nitrite Negative (Negative) Ur Leukocyte Esterase Moderate (2+) H (Negative) Urine RBC >20 H (0-2) /HPF Urine WBC >50 H (0-5) /HPF Ur Squamous Epith Cells 0-2 (0-2) /HPF Urine Bacteria None Seen (None Seen) Hyaline Casts 0-2 (0-2) /LPF Radiology Impression Discussion of test interpretation with radiology: I have reviewed the radiologist's reading. Radiologist Impression: CT/CT abdomen pelvis wo IV con IMPRESSION: 1. No hydronephrosis or obstructing calculus. Of note, the renal parenchyma is not adequately evaluated without intravenous contrast. 2. Borderline enlarged lymph node adjacent to the distal esophagus. This could reflect manifestation of patient's known CLL. Alternatively, neoplastic etiology such as from adjacent esophageal malignancy cannot be excluded and could be further assessed with endoscopy. Follow-up CT imaging in 3-6 months could be performed for reevaluation of this node. 3. Nonspecific 5 mm left lower lobe lung nodule. According to the UPDATED 2017 Fleischner Society recommendations, the advised follow-up imaging for solid nodules < 6 mm is: LOW RISK PATIENT: No routine follow-up. HIGH RISK PATIENT: Optional CT at 12 months. Electronically signed by: Carlito Pulliam MD 11/27/2023 02:05 AM EDT Discharge Plan Discharge Clinical Impression: UTI (urinary tract infection) Patient Disposition: Home, Self-Care Instructions: Urinary Tract Infection in Older Adults (ED) Additional Instructions: Drink plenty of fluids Take antibiotic as prescribed Follow with urologist Prescriptions: New ciprofloxacin HCl [Cipro] 500 mg tablet 500 mg PO BID Qty: 20 0RF No Action Vitamin D2 1,000 unit Capsule 1,000 unit PO DAILY cyanocobalamin (vitamin B-12) [Vitamin B-12] 1,000 mcg Tablet 1,000 mcg PO DAILY folic acid 1 mg Tablet 1 mg PO DAILY zanubrutinib 80 mg Capsule 160 mg PO BID Qty: 120 6RF multivitamin Tablet 1 tab PO DAILY Interventions: ED Discharge Assessment Last Done: 11/27/23 01:54 Discharge Date/Time: 11/27/23 01:55 Print Language: Belgian
[2023-11-26 21:01] LABS: Basophils Absolute Auto 0.1 X10*3/uL (0.0-0.2); Basophils Percent Auto 0.6 % (0-2); Eosinophils Absolute Auto 0.3 X10*3/uL (0.0-0.4); Eosinophils Percent Auto 1.3 % (0-4); Hematocrit 36.5 % (42.0-52.0); Hemoglobin 11.6 g/dl (14.0-18.0); Imm Gran Abs Auto 0.12 X10*3/uL (0.00-0.03); Imm Gran Pct Auto 0.6 % (0.0-0.4); Lymphocytes Percent Auto 66.1 % (20-40); MANUAL DIFF FLAG SCAN; Mean Corpuscular HGB Conc 31.8 g/dl (31.0-36.0); Mean Corpuscular Hemoglobin 28.9 pg (27.0-33.0); Mean Corpuscular Volume 90.8 fL (80.0-98.0); Mean Platelet Volume 12.2 fL (9.4-12.4); Monocytes Absolute Auto 0.9 X10*3/uL (0.1-1.2); Monocytes Percent Auto 4.2 % (2-11); Neutrophils Absolute Auto 5.6 x10*3/uL (2.0-8.3); Neutrophils Percent Auto 27.2 % (45-73); Platelet Count 187 X10*3/uL (160-400); Red Blood Count 4.02 X10*6/uL (4.60-5.80); Red Cell Distribution Width 15.9 % (11.0-16.0); SCAN SMEAR FLAG 1; White Blood Count 20.7 X10*3/uL (4.8-10.8)
[2023-11-26 21:12] LABS: Alanine Aminotransferase 15 U/L (0-40); Albumin Level 3.7 g/dL (3.5-5.0); Alkaline Phosphatase 95 U/L (39-117); Anion Gap 12 (12-20); Aspartate Amino Transferase 16 U/L (5-37); Bilirubin Total 0.3 mg/dL (0.0-1.0); Blood Urea Nitrogen 16 mg/dL (9-16); Carbon Dioxide 27 mmol/L (22-29); Chloride 109 mmol/L (96-108); Creatinine Clr Calc Pharmacy 94.5; Estimated Glomerular Filt Rate > 60; Glucose Random 135 mg/dL (60-115); Potassium 4.3 mmol/L (3.3-5.1); Sodium 144 mmol/L (135-145); Total Protein 6.3 g/dL (6.5-8.0)
[2023-11-26 21:19] LABS: Lymphocytes Absolute Auto 13.6 X10*3/uL (1.2-4.9)
[2023-11-26 21:21] LABS: SLIDE REVIEW VERIFIED
[2023-11-26 21:34] LABS: Appearance Urine Cloudy; Color Urine Yellow; Glucose Urine UA Negative (Negative); Leukocyte Esterase Urine Moderate (2+) (Negative); Nitrite Urine Negative (Negative); PH 5.5 (5.0-9.0); Specific Gravity - Urine 1.025 (1.005-1.025); UMIC TRIGGER UACC YES; Urine Blood Large (3+) (Negative); Urine Ketones Trace mg/dL (Negative); Urine Protein 30 (1+) mg/dL (Neg-Trace)
[2023-11-26 21:36] LABS: Bacteria Urine None Seen (None Seen); Hyaline Casts Urine 0-2 /LPF (0-2); RBC Urine >20 /HPF (0-2); Squamous Epithelial Cell Urine 0-2 /HPF (0-2); UACC Culture Trigger YES; WBC Urine >50 /HPF (0-5)
[2023-11-26 22:00] VITALS: BP 152/64; PULSE 86; RESP 18; TEMP 36.9; O2SAT 96
[2023-11-27 00:16] VITALS: BP 142/82; PULSE 85; RESP 17; TEMP 36.9; O2SAT 95
[2023-11-27] MEDS: levoFLOXacin 500 MG TABLET PO (01:49)
[2023-11-27 01:54] VITALS: BP 144/84; PULSE 90; RESP 20; TEMP 36.8; O2SAT 96
== END 2023-11-27 01:55 | disposition home or self-care (01) ==
PROVIDERS: Emergency Provider Internal Medicine; PCP Internal Medicine
DX: N39.0 Urinary tract infection, site not specified (principal); Z85.46 Personal history of malignant neoplasm of prostate
CPT/HCPCS: 36415; 74176; 80053; 81001; 85025; 87086; 87088; 99284

== ENCOUNTER 2023-12-22 11:28 | Day surgery (SDC) | payer MEDICARE, SELFPAY ==
--- NOTE | 2023-12-22 09:33 | P.OP_ITS ---
Operative Note Operative Note Date of Service: 12/22/23 Narrative: Operative Note Preop diagnosis: 1. Left middle finger Trigger finger Postop diagnosis: 1. Left middle finger Trigger finger Procedure: 1. Left middle finger A1 prema release Surgeon: Claudia Chapin MD [employer] Technician: Wes ZARATE Anesthesia: local block using 1% lidocaine with epinephrine Findings: No locking or catching after A1 prema release EBL: Less than 5 mL Tourniquet time: None Specimens: None Complications: None Disposition: Brought to recovery room in stable condition Plan: Follow-up for 10-14 days for wound check and suture removal Indications: The patient is 78 years old, with a left middle finger trigger finger that has been unresponsive to nonoperative management. The risks and benefits of operative treatment including but not limited to risk of damage to blood vessels, nerves, tendons, infection, persistent pain, persistent symptoms, recurrence or possible need for additional surgery were discussed with the patient and the patient wishes to proceed with surgery. Procedure: Once consent was obtained a local block was performed in the preop area using a combination of 1% lidocaine with epinephrine. The patient was then brought back to the operating suite and placed on the operative table in supine position. The left upper extremity was prepped and draped in a standard surgical fashion. Once assured that we had a good block, a 1.5 cm oblique incision was made centered over the A1 prema of the left middle finger . The incision was made through the skin to the subcutaneous tissues using a #15 blade. Careful dissection was made down to the level of the A1 prema using tenotomy scissors, with care being taken to protect the nearby neurovascular structures. A longitudinal incision was made in the A1 prema 1st using a #15 blade, then using tenotomy scissors under direct visualization. The A1 prema was noted to be thickened. Following our A1 prema release, we no longer saw any locking or catching of the digit with flexion and extension. Once satisfied with our A1 prema release the wound was copiously irrigated with normal saline and hemostasis was obtained with a brief period of local pressure. The skin edges were reapproximated with some 5.0 nylon suture material and a sterile dressing was applied. The patient appears to have tolerated the procedure well and with no complications. All digits were well vascularized at the conclusion of the case.
[2023-12-22 12:15] VITALS: BP 149/81; PULSE 78; RESP 20; TEMP 36.6; O2SAT 95; BMI 41.3
--- NOTE | 2023-12-22 13:48 | MHC.SHP ---
Pre-Procedural Eval Section A - 24 Hr Update-Section A only Date of Service: 12/22/23 The patient is an INPATIENT: No Changes since office visit: No Cold of Flu in the past 2 weeks, No New Medical Problems, No Changes in Medication and No Patient answered all questions The patient has been examined within 24 hours of the surgical procedure. The History & Physical has been completed within 30 days and I have reviewed it.: Yes Section B - Complete if H&P > 30 days Chief Complaint: Trigger finger, left middle finger Allergies: Allergies Allergy/AdvReac Type Severity Reaction Status Date / Time No Known Allergies Allergy Verified 11/26/23 20:30 Plan Diagnosis/Plan: Unchanged I have reviewed the history and physical and performed a pertinent physical examination on my patient. No changes have occurred unless specified. Time Spent With Patient Time: Total time managing care of this patient today ____ minutes.
[2023-12-22 15:45] VITALS: BP 168/88; PULSE 75; RESP 16; TEMP 36.1; O2SAT 97
== END 2023-12-22 15:48 | disposition home or self-care (01) ==
PROVIDERS: PCP Internal Medicine; Visit Provider Orthopaedic Surgery
PROC: (CPT 26055; principal; 2023-12-22 13:40)
DX: M65.332 Trigger finger, left middle finger (principal); D64.9 Anemia, unspecified; G47.30 Sleep apnea, unspecified; I10 Essential (primary) hypertension; E78.00 Pure hypercholesterolemia, unspecified; F32.A Depression, unspecified; Z98.890 Other specified postprocedural states; Z85.46 Personal history of malignant neoplasm of prostate; Z92.21 Personal history of antineoplastic chemotherapy; Z92.3 Personal history of irradiation
CPT/HCPCS: 26055; J0171; J2003

== ENCOUNTER → 2023-12-22 11:28 | Outpatient (BNV) | payer MEDICARE, SELFPAY | PROVIDERS: PCP Internal Medicine; Visit Provider Orthopaedic Surgery | DX: M65.332 Trigger finger, left middle finger (principal) | CPT/HCPCS: 26055 ==

== ENCOUNTER 2024-01-03 10:55 | Outpatient (AMB) | payer MEDICARE, SELFPAY ==
--- NOTE | 2024-01-03 11:40 | MHC.OFFVIS ---
Vital Signs 01/03/24 11:42 Height 6 ft 2 in Weight 322 lb BMI 41.3 Handedness Right Intake Visit Reasons: PO-Lt MF Trigger 12/22/23 Intake Note: James is a 78 yo who presents today post operatively s/p left middle finger trigger release done 12/22/[address] Chapin. Patient reports no pain and no locking of his left middle finger. Denies any discharge from incison site. Sutures removed in office today and steri strips applied. Denies numbness and tingling. Allergies No Known Allergies Allergy (Verified 01/03/24 11:42) HPI HPI PO-Lt MF Trigger 12/22/23: Details: James is a 78 year old right hand dominant man who returns S/P left middle finger trigger release, DOS: 12/22/23. He says he is doing well. He denies any pain locking, or catching, and is happy with the results of his surgery. [facility] Medical History Seroma of skin or subcutaneous tissue after non-dermatologic procedure Postprocedural seroma of skin and subcutaneous tissue following other procedure Anemia Sleep apnea Hx of radiation therapy History of chemotherapy Mass of thigh Subcutaneous mass of left lower extremity Diverticular disease Depression Obesity (BMI 30-39.9) Chronic lymphocytic leukemia Plantar fasciitis Actinic keratosis Osteoarthritis Elevated PSA 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) Hypercholesterolemia HTN (hypertension) Prostate cancer Surgical History H/O colonoscopy H/O removal of cyst Hx of biopsy History of knee replacement procedure of left knee H/O toe surgery H/O submandibular gland removal H/O arthroscopic knee surgery Hx of cholecystectomy Family History Mother Cardiac disease Father Cirrhosis of liver Sister Neuropathy Hypertension Other No family history of cancer Social History Household Members: Spouse Housing: House Are you a primary home care administrator to a significant other at home: No Do you presently have visiting nurse or other home services: No Alcohol intake: former Comment: COUNTS CORRECT Patient Tobacco Use Status: Never used Tobacco e-Cigarette/Vaping Use: Never Used Second Hand Smoke Exposure: No Advance Directives Date on File: 09/01/20 service: Yes Current occupational status: retired Current occupation: [employer] Cognitive needs: Yes (walker/cane) Hearing needs: No Vision needs: Yes (glasses) Review of Systems Const All systems reviewed & are unremarkable except as noted in HPI and below Physical Exam Vital Signs: BMI result Body Mass Index 41.3 Const General: no acute distress and alert Orientation/consciousness: patient oriented x3 Neuro General: patient oriented x3 Extrem Other: The patient was alert oriented and in no acute distress The incision is healing well with no erythema drainage or evidence of infection. Sutures removed and Steri-Strips applied He can make a fist and extend all his digits No locking or catching Sensation is intact Cap refill is brisk Psych Appearance: grossly normal Affect: normal affect Attitude: cooperative Assessment & Plan Assessment & Plan (1) Trigger finger, left middle finger: Code(s): M65.332 - Trigger finger, left middle finger Category: Medical Plan Assessment & Plan: 1. Left middle finger trigger finger, S/P release DOS: 12/22/23 The patient appears to be doing well post-operatively I educated him about the post-operative course I discussed activity modifications, he is to lift nothing heavier than a cellphone for the next two weeks He will perform gentle ROM exercises at home He should avoid any underwater activities for the next 5 days He should gently massage about the incision site to reduce the risk of hypersensitivity He can follow up prn Scribed for Claudia Chapin MD by Matthew Fournier medical legal investigator, on 01/03/24 at 11:50 AM, EST. Coding Level of Care Code Global (61117) Diagnoses Trigger finger, left middle finger M65.332
[2024-01-03 11:42] VITALS: BMI 41.3
== END 2024-01-03 12:06 | disposition home or self-care (01) ==
PROVIDERS: PCP Internal Medicine; Visit Provider Orthopaedic Surgery
DX: M65.332 Trigger finger, left middle finger (principal)
CPT/HCPCS: 99024

== ENCOUNTER → 2024-01-03 10:55 | Outpatient (BNVA) | payer MEDICARE, SELFPAY | PROVIDERS: PCP Internal Medicine; Visit Provider Orthopaedic Surgery | DX: M65.332 Trigger finger, left middle finger (principal) | CPT/HCPCS: 99212 ==

== ENCOUNTER 2024-01-05 09:06 | Outpatient (AMB) | payer MEDICARE, SELFPAY ==
[2024-01-05 09:08] VITALS: BMI 41.3
--- NOTE | 2024-01-05 09:08 | A.OFFVIS_ITS ---
Vital Signs 01/05/24 09:08 01/05/24 09:17 Height 6 ft 2 in 6 ft 2 in Weight 322 lb 0.009 oz 323 lb BMI 41.3 41.5 BP 141/61 H Blood Pressure Location Lt brachial Position Sitting Pulse 94 Intake Visit Reasons: Seroma filling back up Intake Note: Patient presents for seroma of left inner upper thigh. Pt c/o; reports filling up again. Painful to touch. 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 He says that his seroma is filling back up. The last time I had aspirated this was in October,. He denies any new complaints otherwise. He feels well overall. He is being followed closely by Dr. Oliva because of his CLL. [facility] Medical History Seroma of skin or subcutaneous tissue after non-dermatologic procedure Postprocedural seroma of skin and subcutaneous tissue following other procedure Anemia Sleep apnea Hx of radiation therapy History of chemotherapy Mass of thigh Subcutaneous mass of left lower extremity Diverticular disease Depression Obesity (BMI 30-39.9) Chronic lymphocytic leukemia Plantar fasciitis Actinic keratosis Osteoarthritis Elevated PSA 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) Hypercholesterolemia HTN (hypertension) Prostate cancer Surgical History H/O colonoscopy H/O removal of cyst Hx of biopsy History of knee replacement procedure of left knee H/O toe surgery H/O submandibular gland removal H/O arthroscopic knee surgery Hx of cholecystectomy Family History Mother Cardiac disease Father Cirrhosis of liver Sister Neuropathy Hypertension Other No family history of cancer Social History Household Members: Spouse Housing: House Are you a primary home care aide to a significant other at home: No Do you presently have visiting nurse or other home services: No Alcohol intake: former Comment: COUNTS CORRECT Patient Tobacco Use Status: Never used Tobacco e-Cigarette/Vaping Use: Never Used Second Hand Smoke Exposure: No Advance Directives Date on File: 09/01/20 service: Yes Current occupational status: retired Current occupation: [employer] Cognitive needs: Yes (walker/cane) Hearing needs: No Vision needs: Yes (glasses) Review of Systems Const Denies chills and Denies fever(s) Card Denies chest pain and Denies chest pain at rest Resp Denies cough GI Denies abdominal pain Physical Exam Vital Signs: BMI result Body Mass Index 41.3 Const Other: Morbidly obese, looks well General: comfortable and no acute distress Resp Effort & Inspection: normal respiratory effort Cardio Rate: regular rate GI Palpation (GI): Soft to palpation Extrem Other: Boggy mass on the left proximal medial thigh consistent with a seroma, not infected, no tenderness, no cellulitis Office Procedures Aspiration of Seroma Details: The area was prepped and draped. I used a gauge 18 needle to aspirate the seroma. About close to 400 cc was aspirated. This was deep, serosanguineous fluid. He tolerated the procedure well. Aspiration of Seroma: [id number] Seroma Aspiration All charges added?: Procedure code (CPT) selection complete Assessment & Plan Assessment & Plan (1) Postprocedural seroma of skin and subcutaneous tissue following other procedure: Code(s): L76.34 - Postprocedural seroma of skin and subcutaneous tissue following other procedure Category: Medical Plan: He has reaccumulation of the seroma on the left thigh area. I aspirated this with a gauge 18 needle. About close to 400 cc of deep serosanguineous fluid was removed He tolerated procedure well. He will come back to the office if he notices reaccumulation. He continues to follow up with Dr. Oliva for his CLL. Coding Level of Care Code Est Pt Level 3 (79979) Diagnoses Postprocedural seroma of skin and subcutaneous tissue following other procedure L76.34 CPT Codes Aspiration of Seroma ([id number])
[2024-01-05 09:17] VITALS: BP 141/61; PULSE 94; BMI 41.5
== END 2024-01-05 09:37 | disposition home or self-care (01) ==
PROVIDERS: PCP Internal Medicine; Visit Provider Surgery
DX: L76.34 Postprocedural seroma of skin and subcutaneous tissue following other procedure (principal)
CPT/HCPCS: 10160; 99213

== ENCOUNTER → 2024-01-05 09:06 | Outpatient (BNVA) | payer MEDICARE, SELFPAY | PROVIDERS: PCP Internal Medicine; Visit Provider Surgery | DX: L76.34 Postprocedural seroma of skin and subcutaneous tissue following other procedure (principal) | CPT/HCPCS: 10160; 99212 ==

== ENCOUNTER 2024-01-18 11:17 | Outpatient (REF) | payer MEDICARE, SELFPAY ==
[2024-01-18 16:37] LABS: Urine Cytology See Pathology rpt
== END 2024-01-18 11:18 | disposition home or self-care (01) ==
LOC: HO.LAB 11:17
PROVIDERS: PCP Internal Medicine; Visit Provider Urology
DX: N39.0 Urinary tract infection, site not specified (principal); R31.9 Hematuria, unspecified; Z85.46 Personal history of malignant neoplasm of prostate; Z79.899 Other long term (current) drug therapy
CPT/HCPCS: 51798; 81003; 88112

== ENCOUNTER 2024-01-18 11:17 | Outpatient (AMB) | payer MEDICARE, SELFPAY ==
--- NOTE | 2024-01-18 11:39 | A.OFFVIS_ITS ---
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: No Allergies No Known Allergies Allergy (Verified 01/18/24 11:40) HPI Comments Details: Hematuria with CLL medications PFSH Medical History Seroma of skin or subcutaneous tissue after non-dermatologic procedure Postprocedural seroma of skin and subcutaneous tissue following other procedure Anemia Sleep apnea Hx of radiation therapy History of chemotherapy Mass of thigh Subcutaneous mass of left lower extremity Diverticular disease Depression Obesity (BMI 30-39.9) Chronic lymphocytic leukemia Plantar fasciitis Actinic keratosis Osteoarthritis Elevated PSA 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) Hypercholesterolemia HTN (hypertension) Prostate cancer Surgical History H/O colonoscopy H/O removal of cyst Hx of biopsy History of knee replacement procedure of left knee H/O toe surgery H/O submandibular gland removal H/O arthroscopic knee surgery Hx of cholecystectomy Family History Mother Cardiac disease Father Cirrhosis of liver Sister Neuropathy Hypertension Other No family history of cancer Social History Household Members: Spouse Housing: House Are you a primary hospice patient care secretary to a significant other at home: No Do you presently have visiting nurse or other home services: No Alcohol intake: former Comment: COUNTS CORRECT Patient Tobacco Use Status: Never used Tobacco e-Cigarette/Vaping Use: Never Used Second Hand Smoke Exposure: No Advance Directives Date on File: 09/01/20 service: Yes Current occupational status: retired Current occupation: [employer] Cognitive needs: Yes (walker/cane) Hearing needs: No Vision needs: Yes (glasses) Office Procedures Post Void Residual Post Residual Void Post Void Residual (PVR): 14 [id number] Void Residual by ultrasound Results AMB Urinalysis, Automated UA Leukoctes 15 Violetta/uL Last Edit by ALEJANDRA Lucas on 01/18/24 11:54 UA Nitrite Negative Last Edit by ALEJANDRA Lucas on 01/18/24 11:54 UA Urobilinogen 0.2 mg/dL Last Edit by ALEJANDRA Lucas on 01/18/24 11:5 4 UA Protein 0 mg/dL Last Edit by ALEJANDRA Lucas on 01/18/24 11:54 UA pH 6.0 Last Edit by ALEJANDRA Lucas on 01/18/24 11:54 UA Blood 80 Lobo/uL Last Edit by ALEJANDRA Lucas on 01/18/24 11:54 UA Specific [place] 1.025 Last Edit by ALEJANDRA Lucas on 01/18/24 11: 54 UA Ketone Negative Last Edit by ALEJANDRA Lucas on 01/18/24 11:54 UA Bilirubin 0 mg/dL Last Edit by ALEJANDRA Lucas on 01/18/24 11:54 UA Glucose 0 mg/dL Last Edit by ALEJANDRA Lucas on 01/18/24 11:54 Results Reviewed Results Reviewed: Laboratory Last Values Urine pH (Auto) 6.0 01/18/24 11:53 Specific [place] (Auto) 1.025 01/18/24 11:53 Urine Protein (Auto) 0 mg/dL 01/18/24 11:53 Glucose (UA)(Auto) 0 mg/dL 01/18/24 11:53 Urine Ketones (Auto) Negative 01/18/24 11:53 Urine Blood (Auto) 80 Lobo/uL 01/18/24 11:53 Urine Nitrite (Auto) Negative 01/18/24 11:53 Urine Bilirubin (Auto) 0 mg/dL 01/18/24 11:53 Urine Urobilinogen (Auto) 0.2 mg/dL 01/18/24 11:53 Leukocyte Esterase (Auto) 15 Violetta/uL 01/18/24 11:53 Assessment & Plan Assessment & Plan Orders: Orders Urine Cytology Today N39.0 - Urinary tract infection, site not specified AMB Urinalysis Automated Today Z13.9 - Encounter for screening, unspecified Coding CPT Codes Post Residual Void - PVR CPT Code: 73220-Lpih Void Residual by ultrasound ([id number])
== END 2024-01-18 12:10 | disposition home or self-care (01) ==
LOC: HO.HUSH 11:17
PROVIDERS: PCP Internal Medicine; Visit Provider Urology
DX: Z13.9 Encounter for screening, unspecified (principal)

== ENCOUNTER 2024-02-08 09:03 | Outpatient (AMB) | payer MEDICARE, SELFPAY ==
--- NOTE | 2024-02-08 09:07 | MHC.PC.OV ---
Vital Signs 02/08/24 09:14 Height 6 ft 2 in Weight 328 lb BMI 42.1 BP 140/82 H Blood Pressure Location Lt brachial Position Sitting Pulse 87 Pulse Source Pulse Oximeter Pulse Oximetry (%) 95 Oxygen Delivery Method Room Air Intake Visit Reasons: recurrent UTI Allergies No Known Allergies Allergy (Verified 02/08/24 09:30) Medication List - Last Reconciled 02/08/24 by Marielena Hassan PA-C acetaminophen ER (Tylenol 8 Hour) mg PO cyanocobalamin (vitamin B-12) (Vitamin B-12) 1,000 mcg PO DAILY ergocalciferol (vitamin D2) 1,000 units PO DAILY folic acid 1 mg PO DAILY multivitamin 1 tab PO DAILY zanubrutinib 160 mg (2 x 80 mg) PO BID Tobacco use date assessed: 11/08/23 Fall risk assessment: No Falls in past year Last assessed Fall Risk: 02/08/24 Dental Screening Dental Screen Date: 11/08/23 HPI recurrent UTI HPI Details 78-year-old morbidly obese male with CLL, history of prostate cancer, hypercholesterolemia, impaired glucose tolerance, peripheral vascular disease last seen October [address] Salamanca coming in for acute problem. In review of the notes, patient was seen by Urology 01/18/2024 for recurrent UTIs. Patient was also seen by General surgery 01/05/2024 for recurrent seroma of left thigh which was aspirated at that time. He was also seen by orthopedic surgeons 01/03/2024 for left trigger finger s/p release doing well.? He also follows with Dr. Oliva [place] [facility] [place] CLL. CT was done which showed no hydronephrosis or obstructing calculus. Borderline enlarged lymph node adjacent to the distal esophagus could reflect CLL or possibly neoplastic etiology recommending follow up CT imaging in 3-6 months. As well as a lung nodule with no routine follow up recommended. Patient has been having bruising of the right arm and blood in the urine. The blood and the urine has stopped and he is following with urology for this concern. He reached out to Dr. Oliva as these are possible side effects of the medication he is on for his CLL and she is aware of the side effects and has been monitoring. He states he does not want to do the cystoscopy with Dr. Guzman because the blood in the urine has stopped in the urine cytology was negative. He has been taking his blood pressure at home and all values have been within normal limits and rarely has values over 140 systolic and never over 90 diastolic. [facility] Medical History Seroma of skin or subcutaneous tissue after non-dermatologic procedure Postprocedural seroma of skin and subcutaneous tissue following other procedure Anemia Sleep apnea Hx of radiation therapy History of chemotherapy Mass of thigh Subcutaneous mass of left lower extremity Diverticular disease Depression Obesity (BMI 30-39.9) Chronic lymphocytic leukemia Plantar fasciitis Actinic keratosis Osteoarthritis Elevated PSA 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) Hypercholesterolemia HTN (hypertension) Prostate cancer Surgical History H/O colonoscopy H/O removal of cyst Hx of biopsy History of knee replacement procedure of left knee H/O toe surgery H/O submandibular gland removal H/O arthroscopic knee surgery Hx of cholecystectomy Family History Mother Cardiac disease Father Cirrhosis of liver Sister Neuropathy Hypertension Other No family history of cancer Social History Household Members: Spouse Housing: House Are you a primary career resource technician to a significant other at home: No Do you presently have visiting nurse or other home services: No Alcohol intake: former Comment: COUNTS CORRECT Patient Tobacco Use Status: Never used Tobacco e-Cigarette/Vaping Use: Never Used Second Hand Smoke Exposure: No Advance Directives Date on File: 09/01/20 service: Yes Current occupational status: retired Current occupation: [employer] Cognitive needs: Yes (walker/cane) Hearing needs: No Vision needs: Yes (glasses) Questionnaire Thrive Questionnaire Date Thrive assessed: 11/08/23 AUDIT C Alcohol Use Questionnaire (AUDIT-C) 1. How often do you have a drink containing alcohol?: Monthly or less 2. How many drinks containing alcohol do you have on a typical day when you are drinking?: 1 or 2 3. How often do you have six or more drinks on one occasion?: Never Total Score: 1 LUBA-7 AMB Questionnaire LUBA-7 Date LUBA - 7 assessed: 11/08/23 Source: Developed by Drs. James Paulino, Mimi Lezama, Andrae Olivera and colleagues, with an educational farooq from [employer]. Review of Systems Const Denies body aches, Denies chills and Denies fever(s) Eyes Reports no additional complaints ENT Reports no additional complaints Card Denies chest pain, Denies syncope, Denies leg edema, Denies lightheadedness and Denies dyspnea Resp Denies dyspnea GI Denies abdominal pain, Denies nausea and Denies vomiting Denies hematuria, Denies difficulty urinating, Denies dysuria, Denies urinary frequency, Denies urinary hesitancy and Denies urinary urgency Musc Reports no additional complaints and Denies back pain Skin/Breast Reports system reviewed and no additional complaints, except as documented Neuro Denies syncope Physical exam (Primary Care) Vital Signs: Last Vital Signs Pulse 87 02/08/24 09:14 BP 140/82 H 02/08/24 09:14 Pulse Ox 95 02/08/24 09:14 Oxygen Delivery Method Room Air 02/08/24 09:14 BMI result Body Mass Index 42.1 Tobacco/Smoking Status: Tobacco use Status Tobacco use date assessed 11/08/23 02/08/24 09:07 Patient Tobacco Use Status Never used Tobacco 02/08/24 09:07 e-Cigarette/Vaping Use Never Used 02/08/24 09:07 Thrive Assessment: Date of Thrive Assessment Date Thrive assessed 11/08/23 02/08/24 09:07 Const General: cooperative, healthy appearing, comfortable and no acute distress Orientation/consciousness: patient oriented x3 HENMT Head: Yes normocephalic Ears: hearing grossly normal bilaterally General nose exam: Normal external nose present Eyes General: appearance normal, both eyes and all related structures Conjunctivae: conjunctivae normal Neck Neck: Yes full ROM and Yes no lymphadenopathy Resp Effort & Inspection: normal respiratory effort Auscultation: clear to auscultation bilaterally, no crackles, no rales, no rhonchi and no wheezes Cardio Rate: regular rate Rhythm: regular rhythm Skin General skin exam: no rashes or lesions noted Neuro General: patient oriented x3 Gait exam (Neuro): Normal gait present Extrem General: Yes normal to inspection, Yes full ROM and No edema Psych Affect: normal affect Attitude: cooperative Insight: Good insight present (Psych) Judgement: Good judgement present (Psych) Coding Level of Care Code Est Pt Level 3 (97927) Diagnoses Recurrent UTI N39.0 Peripheral vascular disease I73.9 Impaired fasting blood sugar R73.01 Prostate cancer C61 Chronic lymphocytic leukemia C91.10 Hypercholesterolemia E78.00 Obesity (BMI 30-39.9) E66.9 Assessment & Plan Assessment & Plan (1) Recurrent UTI: Code(s): N39.0 - Urinary tract infection, site not specified Category: Medical Plan: Currently following with Urology. Patient declined to have cystoscopy performed in March. Advised him to follow up with Dr. Guzman for additional discussion regarding next steps for history of blood in the urine and recurrent UTI. Asymptomatic at this time and no longer having blood in the urine. (2) Peripheral vascular disease: Code(s): I73.9 - Peripheral vascular disease, unspecified Category: Medical Plan: Advised compression stockings, elevation and exercise as tolerated. (3) Impaired fasting blood sugar: Code(s): R73.01 - Impaired fasting glucose Category: Medical Plan: Decrease the amount of carbohydrates such as pasta, bread, rice, and potatoes and limit the amount of sweets. Although fruits are generally healthy they should be eaten in moderation as they are still high in sugar. (4) Prostate cancer: Comment: January [address] and Dr. baires hormonal and radiation therapy with gold seed placement May 2016 Code(s): C61 - Malignant neoplasm of prostate Category: Medical Plan: Continue to follow with Urology. (5) Chronic lymphocytic leukemia: Comment: August 2013 flow cytometry, WBC 2 0 0 a Code(s): C91.10 - Chronic lymphocytic leukemia of B-cell type not having achieved remission Category: Medical Plan: Patient currently following with Hematology/Oncology with Dr. Oliva. (6) Hypercholesterolemia: Code(s): E78.00 - Pure hypercholesterolemia, unspecified Category: Medical Plan: Avoid foods that are high in cholesterol such as red meat, fried foods, eggs and baked goods. Triglyceride goal of less than 150 and LDL goal of less than 100. (7) Obesity (BMI 30-39.9): Code(s): E66.9 - Obesity, unspecified Category: Medical Plan: Healthy diet and regular exercise is encouraged. Plan This note was constructed using voice recognition software. While every effort has been made to ensure accuracy and director of patient safety, still areas may have been included sometimes these areas may affect the content or meeting of the given symptoms. Total time spent caring for the patient today was 30 minutes. This includes time spent before the visit reviewing the chart, time spent during the visit, and time spent after the visit and documentation. Orders: Orders Hemoglobin A1c Today Z00.00 - Encounter for general adult medical examination without abnormal findings
[2024-02-08 09:14] VITALS: BP 140/82; PULSE 87; O2SAT 95; BMI 42.1
== END 2024-02-08 10:37 | disposition home or self-care (01) ==
PROVIDERS: PCP Internal Medicine
DX: I73.9 Peripheral vascular disease, unspecified (principal); C61 Malignant neoplasm of prostate; C91.10 Chronic lymphocytic leukemia of B-cell type not having achieved remission; N39.0 Urinary tract infection, site not specified; Z68.41 Body mass index [BMI] 40.0-44.9, adult; E66.9 Obesity, unspecified; R73.01 Impaired fasting glucose; E78.00 Pure hypercholesterolemia, unspecified

== ENCOUNTER → 2024-02-08 09:03 | Outpatient (BNVA) | payer MEDICARE, SELFPAY | PROVIDERS: PCP Internal Medicine | DX: N39.0 Urinary tract infection, site not specified (principal); I73.9 Peripheral vascular disease, unspecified; R73.01 Impaired fasting glucose | CPT/HCPCS: 99212 ==

== ENCOUNTER 2024-03-30 09:43 | Outpatient (AMB) | payer MEDICARE, SELFPAY ==
--- NOTE | 2024-03-30 09:55 | MHC.OFFVIS ---
Intake Visit Reasons: Cysto/PVR(Wants to Discuss Cysto) Intake Note: Pt presents to the office today for cysto/PVR. Pt is not interested in the Cysto procedure. Allergies No Known Allergies Allergy (Verified 03/30/24 09:55) HPI Comments Details: James is a pleasant male. He is a patient of Dr. Salamanca. 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 - prostate cancer UA today positive for microscopic hematuria Negative for infection Discussed starting methenamine and vitamin-C for immunocompromise and high risk of recurrent UTI Six-month follow-up UA office Hematuria with CLL medications Immunocompromised High-risk for recurrent UTI Has had prior positive culture for unusual mix of bacteria including Enterobacter, Strep Viridans, and Pantoea Prostate cancer Prior radiation PSA 03/13 <0.1 PFSH Medical History Seroma of skin or subcutaneous tissue after non-dermatologic procedure Postprocedural seroma of skin and subcutaneous tissue following other procedure Anemia Sleep apnea Hx of radiation therapy History of chemotherapy Mass of thigh Subcutaneous mass of left lower extremity Diverticular disease Depression Obesity (BMI 30-39.9) Chronic lymphocytic leukemia Plantar fasciitis Actinic keratosis Osteoarthritis Elevated PSA 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) Hypercholesterolemia HTN (hypertension) Prostate cancer Surgical History H/O colonoscopy H/O removal of cyst Hx of biopsy History of knee replacement procedure of left knee H/O toe surgery H/O submandibular gland removal H/O arthroscopic knee surgery Hx of cholecystectomy Family History Mother Cardiac disease Father Cirrhosis of liver Sister Neuropathy Hypertension Other No family history of cancer Social History Household Members: Spouse Housing: House Are you a primary customer care representative to a significant other at home: No Do you presently have visiting nurse or other home services: No Alcohol intake: former Comment: COUNTS CORRECT Patient Tobacco Use Status: Never used Tobacco e-Cigarette/Vaping Use: Never Used Second Hand Smoke Exposure: No Advance Directives Date on File: 09/01/20 service: Yes Current occupational status: retired Current occupation: [employer] Cognitive needs: Yes (walker/cane) Hearing needs: No Vision needs: Yes (glasses) Review of Systems Const Denies chills and Denies fever(s) Card Reports no additional complaints and Denies syncope Resp Denies cough GI Denies abdominal pain and Denies heartburn Reports as per HPI and Denies change in libido Neuro Denies syncope Psych Denies change in libido Endo Denies change in libido Physical Exam Const General: cooperative, healthy appearing, comfortable and no acute distress Orientation/consciousness: patient oriented x3 HEENT Face and sinus: Yes normal facial exam Mouth: moist mucous membranes Neck Neck: Yes normal visual inspection, Yes full ROM and Yes trachea midline Chest Chest palpation & inspection: normal inspection of the chest Resp Effort & Inspection: normal respiratory effort, able to speak in complete sentences and no respiratory distress GI Inspection: Yes normal to inspection Back/Spine/Pelvis Cervical Spine: normal cervical lordosis Thoracic/Lumbar Spine: thoracic and lumbar spine normal to inspection Skin General skin exam: no rashes or lesions noted Neuro General: patient oriented x3, gait normal, tone normal and moves all extremities Extrem General: Yes normal to inspection and Yes capillary refill normal Office Procedures Post Void Residual Post Residual Void Post Void Residual (PVR): 44 [id number] Void Residual by ultrasound Results AMB Urinalysis, Automated UA Leukoctes 0 Violetta/uL Last Edit by Lea Elizondo CMA on 03/30/24 10:10 UA Nitrite Negative Last Edit by Lea Elizondo CMA on 03/30/24 10:10 UA Urobilinogen 0.2 mg/dL Last Edit by Lea Elizondo CMA on 03/30/24 10:10 UA Protein 15 mg/dL Last Edit by Lea Elizondo CMA on 03/30/24 10:10 UA pH 6.0 Last Edit by Lea Elizondo CMA on 03/30/24 10:10 UA Blood 200 Lobo/uL Last Edit by eLa Elizondo CMA on 03/30/24 10:10 UA Specific [place] 1.020 Last Edit by Lea Elizondo CMA on 03/30/24 10:10 UA Ketone Negative Last Edit by Lea Elizondo CMA on 03/30/24 10:10 UA Bilirubin 0 mg/dL Last Edit by Lea Elizondo CMA on 03/30/24 10:10 UA Glucose 0 mg/dL Last Edit by Lea Elizondo CMA on 03/30/24 10:10 Results Reviewed Results Reviewed: Laboratory Last Values Urine pH (Auto) 6.0 03/30/24 10:01 Specific [place] (Auto) 1.020 03/30/24 10:01 Urine Protein (Auto) 15 mg/dL 03/30/24 10:01 Glucose (UA)(Auto) 0 mg/dL 03/30/24 10:01 Urine Ketones (Auto) Negative 03/30/24 10:01 Urine Blood (Auto) 200 Lobo/uL 03/30/24 10:01 Urine Nitrite (Auto) Negative 03/30/24 10:01 Urine Bilirubin (Auto) 0 mg/dL 03/30/24 10:01 Urine Urobilinogen (Auto) 0.2 mg/dL 03/30/24 10:01 Leukocyte Esterase (Auto) 0 Violetta/uL 03/30/24 10:01 Assessment & Plan Assessment & Plan (1) Immunocompromised patient: Code(s): D84.9 - Immunodeficiency, unspecified Category: Medical (2) Prostate cancer: Comment: January [address]. [address] and Dr. baires hormonal and radiation therapy with gold seed placement May 2016 Code(s): C61 - Malignant neoplasm of prostate Category: Medical (3) Recurrent UTI: Code(s): N39.0 - Urinary tract infection, site not specified Category: Medical Plan Start chemo prophylaxis Continue surveillance G Code G2211 Has been applied in accordance with CMS guidelines ( Medicare and Medicaid programs; [place] 2023 Payment Policies ) to convey the inherent complexity in ongoing patient care within the urology clinic. This deliberate utilization aligns with the visits complexity associated with medical care services serving as a focal point for necessary healthcare, addressing the patient's singular serious or complex condition. This judicious use ensure was appropriate reimbursement, especially in the context of managing such conditions within our specialized, longitudinal urologic practice. This patient has a complex and chronic urologic condition that requires longitudinal follow-up. CMS, Medicare and Medicaid programs; [place] 2023 Payment Policies Fed. Reg 88 (16): 88665-73955 (Oct.252022) Orders: Orders AMB Urinalysis Automated Today N39.0 - Urinary tract infection, site not specified AMB Post Void Residual by ultrasound Today N39.0 - Urinary tract infection, site not specified Medications: New ascorbic acid (vitamin C) 1,000 mg PO DAILY 90 days 90 tabs 1RF N39.0 - Urinary tract infection, site not specified methenamine hippurate 1 g PO daily 90 days 90 tabs 1RF N39.0 - Urinary tract infection, site not specified Patient Instructions: Imaging studies, laboratory and physical exam results were discussed and reviewed in detail. No major barriers to patient understanding were identified. An opportunity to ask questions regarding the treatment plan was provided. All questions were answered. The patient expressed understanding and agreement with the above treatment plan. The patient is aware they should contact our office by phone for worsening of their current condition or the appearance of new urologic symptoms. Compliance is encouraged with any medications and followup testing that is ordered. It is a privilege to participate in the urologic care of your patient. If you have any questions or concerns regarding treatment for the above conditions, or other urologic issues, please do not hesitate to contact me. The office telephone contact is [phone]. This note is constructed using voice recognition software. While every effort has been made to ensure accuracy well servicing rig operator errors may have been included. Yours sincerely, Dr Horace Guzman MD, [facility] - Urology Providers of Expert, Compassionate Care for the Genitourinary System Coding Level of Care Code Est Pt Level 4 (48924) Diagnoses Immunocompromised patient D84.9 Prostate cancer C61 Recurrent UTI N39.0 CPT Codes Post Residual Void - PVR CPT Code: 64339-Ecfk Void Residual by ultrasound ([id number])
== END 2024-03-30 10:30 | disposition home or self-care (01) ==
PROVIDERS: PCP Internal Medicine; Visit Provider Urology
DX: D84.9 Immunodeficiency, unspecified (principal); C61 Malignant neoplasm of prostate; N39.0 Urinary tract infection, site not specified
CPT/HCPCS: 99214

== ENCOUNTER → 2024-03-30 09:43 | Outpatient (BNVA) | payer MEDICARE, SELFPAY | PROVIDERS: PCP Internal Medicine; Visit Provider Urology | DX: D84.9 Immunodeficiency, unspecified (principal); N39.0 Urinary tract infection, site not specified; C61 Malignant neoplasm of prostate | CPT/HCPCS: 51798; 81003; 99212 ==

== ENCOUNTER 2024-09-28 09:44 | Outpatient (REF) | payer MEDICARE, SELFPAY | END 2024-09-28 09:45 | disposition home or self-care (01) | LOC: HO.LAB 09:44 | PROVIDERS: PCP Internal Medicine; Visit Provider Urology | DX: N39.0 Urinary tract infection, site not specified (principal); Z13.9 Encounter for screening, unspecified | CPT/HCPCS: 81003; 87086; 87088 ==

== ENCOUNTER 2024-09-28 09:44 | Outpatient (AMB) | payer MEDICARE, SELFPAY ==
--- OUTSIDE RECORDS SUMMARY | 2024-09-28 10:02 | XMS_ITS | Patient Health Record ---
Author Organization [facility] Address [address] [place] [address] Care Team Providers Care Packing Machine Inspector Name Role Phone Po Charmaine CARPENTER Primary Care Provider James Patel Unavailable [phone] Reason For Referral No Information Medications Medication SIG (Take, Route, Frequency, Duration) Notes Start Date End Date Status Irbesartan-hydroCHLOROthia zide 150-12.5 MG 1 tablet Orally Once a day Active Problems Problem Type SNOMED Code ICD Code Onset Dates Problem Status W/U Status Risk Notes Problem [id number] Encounter for screening for malignant neoplasm of colon (Z12.11) Active confirmed Problem Screening for malignant neoplasm of rectum ([id number]) Encounter for screening for malignant neoplasm of rectum (Z12.12) Active confirmed Problem 10016858 Preprocedural examination (Z01.818) Active confirmed Plan Of Treatment Future Test Test Name Order Date COLONOSCOPY 04/24/2015 Insurance Providers Payer Name Payer Address Payer Phone Subscriber Number Group Number Insured Name Patient Relationship to Insured Coverage Start Date Coverage End Date [facility] [address] [place] [phone] [id number] JAMES DAY Self - patient is the insured Medical (General) History Medical History History ICD Code colonoscopy--nega tive except for sigmoid diverticulosis and internal hemorrhoids Hypertension Denies MO,DM,CVA,Lung disease,renal dise ase Leukocytosis--sees Dr. Oliva--CLL is de scribed on a lab from 08/2013 Sleep apnea---does not use CPAP Surgical History Surgery Date(Month/Year) [facility] Sweat gland removed from neck Benign tumor removed from hand left knee arthroscopy right knee arthroscopy
--- NOTE | 2024-09-28 10:59 | MHC.OFFVIS ---
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 He is a patient of Dr. Salamanca. 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 - prostate cancer UA continues to be positive for blood and trace leukocytes Has been placed on methenamine vitamin-C to help protect from recurrent UTI Six-month follow-up UA office Hematuria with CLL medications Immunocompromised High-risk for recurrent UTI Has had prior positive culture for unusual mix of bacteria including Enterobacter, Strep Viridans, and Pantoea Placed on vitamin-C and methenamine Prostate cancer Prior radiation PSA 03/13 <0.1, PFSH Medical History Seroma of skin or subcutaneous tissue after non-dermatologic procedure Postprocedural seroma of skin and subcutaneous tissue following other procedure Anemia Sleep apnea Hx of radiation therapy History of chemotherapy Mass of thigh Subcutaneous mass of left lower extremity Diverticular disease Depression Obesity (BMI 30-39.9) Chronic lymphocytic leukemia Plantar fasciitis Actinic keratosis Osteoarthritis Elevated PSA 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) Hypercholesterolemia HTN (hypertension) Prostate cancer Surgical History H/O colonoscopy H/O removal of cyst Hx of biopsy History of knee replacement procedure of left knee H/O toe surgery H/O submandibular gland removal H/O arthroscopic knee surgery Hx of cholecystectomy Family History Mother Cardiac disease Father Cirrhosis of liver Sister Neuropathy Hypertension Other No family history of cancer Social History Household Members: Spouse Housing: House Are you a primary animal care worker to a significant other at home: No Do you presently have visiting nurse or other home services: No Alcohol intake: former Comment: COUNTS CORRECT Patient Tobacco Use Status: Never used Tobacco e-Cigarette/Vaping Use: Never Used Second Hand Smoke Exposure: No Advance Directives Date on File: 09/01/20 service: Yes Current occupational status: retired Current occupation: [employer] Cognitive needs: Yes (walker/cane) Hearing needs: No Vision needs: Yes (glasses) Assessment & Plan Assessment & Plan Orders: Orders AMB Urinalysis Automated Today Z13.9 - Encounter for screening, unspecified Medications: Refilled ascorbic acid (vitamin C) 1,000 mg PO DAILY 90 tabs 1RF 90 days N39.0 - Urinary tract infection, site not specified Coding
== END 2024-09-28 11:25 | disposition home or self-care (01) ==
LOC: HO.HUSH 09:45
PROVIDERS: PCP Internal Medicine; Visit Provider Urology
DX: Z13.9 Encounter for screening, unspecified (principal)

== ENCOUNTER 2024-11-06 08:28 | Outpatient (REF) | payer MEDICARE, SELFPAY ==
--- OUTSIDE RECORDS SUMMARY | 2024-11-06 09:10 | XMS_ITS | Patient Health Record ---
Author Organization [facility] Address [address] [place] [address] Care Team Providers Care Fisher Eel Name Role Phone Charmaine Salamanca MD Primary Care Provider James Patel Unavailable [phone] Reason For Referral No Information Medications Medication SIG (Take, Route, Frequency, Duration) Notes Start Date End Date Status Irbesartan-hydroCHLOROthia zide 150-12.5 MG 1 tablet Orally Once a day Active Problems Problem Type SNOMED Code ICD Code Onset Dates Problem Status W/U Status Risk Notes Problem [id number] Encounter for screening for malignant neoplasm of colon (Z12.11) Active confirmed Problem Encounter for screening for malignant neoplasm of rectum (Z12.12) Active confirmed Problem 89194341 Preprocedural examination (Z01.818) Active confirmed Plan Of Treatment Future Test Test Name Order Date COLONOSCOPY 04/24/2015 Insurance Providers Payer Name Payer Address Payer Phone Subscriber Number Group Number Insured Name Patient Relationship to Insured Coverage Start Date Coverage End Date [facility] [address] [place] [phone] [id number] JAMES DAY Self - patient is the insured Medical (General) History Medical History History ICD Code colonoscopy--nega tive except for sigmoid diverticulosis and internal hemorrhoids Hypertension Denies VT,DM,CVA,Lung disease,renal dise ase Leukocytosis--sees Dr. Oliva--CLL is de scribed on a lab from 08/2013 Sleep apnea---does not use CPAP Surgical History Surgery Date(Month/Year) CCY Sweat gland removed from neck Benign tumor removed from hand left knee arthroscopy right knee arthroscopy
[2024-11-06 11:17] LABS: Hematocrit 40.5 % (42.0-52.0); Hemoglobin 13.0 g/dl (14.0-18.0); Imm Gran Abs Auto 0.11 X10*3/uL (0.00-0.03); Imm Gran Pct Auto 0.9 % (0.0-0.4); MANUAL DIFF FLAG SCAN; Mean Corpuscular HGB Conc 32.1 g/dl (31.0-36.0); Mean Corpuscular Hemoglobin 29.5 pg (27.0-33.0); Mean Corpuscular Volume 92.0 fL (80.0-98.0); NRBC Abs Auto 0.000 X10*3/uL (0.0-0.012); NRBC Pct Auto 0.0 /100WBC (0.0-0.2); Platelet Count 169 X10*3/uL (160-400); Red Blood Count 4.40 X10*6/uL (4.60-5.80); SCAN SMEAR FLAG 1; White Blood Count 12.1 X10*3/uL (4.8-10.8)
[2024-11-06 11:19] LABS: Lymphocytes Absolute Auto 6.1 X10*3/uL (1.2-4.9)
[2024-11-06 11:34] LABS: Hemoglobin A1C 121.0691 umol/L; Total Hemoglobin (HGBA1C) 3435.6717 umol/L
[2024-11-06 11:55] LABS: Alanine Aminotransferase 18 U/L (0-40); Albumin Level 3.9 g/dL (3.5-5.0); Alkaline Phosphatase 88 U/L (39-117); Anion Gap 11 (12-20); Aspartate Amino Transferase 24 U/L (5-37); Blood Urea Nitrogen 16 mg/dL (9-16); Calcium 8.8 mg/dL (8.4-10.2); Carbon Dioxide 27 mmol/L (22-29); Chloride 108 mmol/L (96-108); Cholesterol 154 mg/dL (<200); Estimated Glomerular Filt Rate > 60; HDL Cholesterol 34 mg/dL (>40); Magnesium 2.1 mg/dL (1.6-2.6); Potassium 3.9 mmol/L (3.3-5.1); Sodium 142 mmol/L (135-145); Total Protein 6.3 g/dL (6.5-8.0); Triglycerides 157 mg/dL (<150)
[2024-11-06 11:59] LABS: Free T4 (Free Thyroxine) 0.89 ng/dL (0.71-1.85); Thyroid Stimulating Hormone 3.70 uIU/mL (0.32-4.0)
[2024-11-06 12:13] LABS: PSA,Total (Free>4and<10) < 0.10 ng/mL (0.00-4.00)
[2024-11-06 12:20] LABS: Folate 15.4 ng/mL (> or = 4.0); Vitamin B12 488 pg/mL (200-900)
== END 2024-11-06 08:29 | disposition home or self-care (01) ==
LOC: HO.WFDLDS 08:28
PROVIDERS: Visit Provider Internal Medicine
DX: Z00.00 Encounter for general adult medical examination without abnormal findings (principal); Z12.5 Encounter for screening for malignant neoplasm of prostate; Z13.1 Encounter for screening for diabetes mellitus; C91.10 Chronic lymphocytic leukemia of B-cell type not having achieved remission; C61 Malignant neoplasm of prostate; E78.00 Pure hypercholesterolemia, unspecified
CPT/HCPCS: 36415; 80053; 80061; 82607; 82746; 83036; 83735; 84153; 84439; 84443; 85025

== ENCOUNTER 2024-11-09 10:34 | Outpatient (AMB) | payer MEDICARE, SELFPAY ==
--- OUTSIDE RECORDS SUMMARY | 2024-11-09 10:38 | XMS_ITS | Patient Health Record ---
[facility] Address [address] [place] [address] Care Team Providers Care Sizing Machine Tender Name Role Phone Po Charmaine CARPENTER Primary Care Provider James Patel Unavailable [phone] Reason For Referral No Information Medications Medication SIG (Take, Route, Frequency, Duration) Notes Start Date End Date Status Irbesartan-hydroCHLOROthia zide 150-12.5 MG 1 tablet Orally Once a day Active Problems Problem Type SNOMED Code ICD Code Onset Dates Problem Status W/U Status Risk Notes Problem 998281001 Encounter for screening for malignant neoplasm of colon (Z12.11) Active confirmed Problem Screening for malignant neoplasm of rectum (191129657) Encounter for screening for malignant neoplasm of rectum (Z12.12) Active confirmed Problem 42976343 Preprocedural examination (Z01.818) Active confirmed Plan Of Treatment Future Test Test Name Order Date COLONOSCOPY 04/24/2015 Insurance Providers Payer Name Payer Address Payer Phone Subscriber Number Group Number Insured Name Patient Relationship to Insured Coverage Start Date Coverage End Date [facility] [address] [place] [phone] [id number] JAMES DAY Self - patient is the insured Medical (General) History Medical History History ICD Code colonoscopy--nega tive except for sigmoid diverticulosis and internal hemorrhoids Hypertension Denies [place],DM,CVA,Lung disease,renal dise ase Leukocytosis--sees Dr. Oliva--CLL is de scribed on a lab from 08/2013 Sleep apnea---does not use CPAP Surgical History Surgery Date(Month/Year) CCY Sweat gland removed from neck Benign tumor removed from hand left knee arthroscopy right knee arthroscopy
[2024-11-09 10:41] VITALS: BP 178/94; PULSE 99; TEMP 36.3; O2SAT 94; BMI 46.5
--- NOTE | 2024-11-09 10:41 | MHC.PC.OV ---
Vital Signs 11/09/24 10:41 Height 6 ft Weight 343 lb 2 oz BMI 46.5 BP 178/94 H Blood Pressure Location Lt brachial Position Sitting Pulse 99 Pulse Source Pulse Oximeter Temp 97.3 F Temp Source Temporal Artery Scan Pulse Oximetry (%) 94 Oxygen Delivery Method Room Air Intake Visit Reasons: Annual Exam - see comments Allergies No Known Allergies Allergy (Verified 11/09/24 10:45) Medication List - Last Reconciled 11/09/24 by Charmaine Salamanca MD ascorbic acid (vitamin C) 1,000 mg PO DAILY 90 days cyanocobalamin (vitamin B-12) (Vitamin B-12) 1,000 mcg PO DAILY ergocalciferol (vitamin D2) 1,000 units PO DAILY folic acid 1 mg PO DAILY magnesium 200 mg PO .2 a week multivitamin 1 tab PO DAILY zanubrutinib 160 mg (2 x 80 mg) PO BID Tobacco use date assessed: 11/09/24 Fall risk assessment: No Falls in past year Last assessed Fall Risk: 11/09/24 Dental Screening Dental Screen Date: 11/09/24 Did you have a dental visit in the last 12 months?: Yes Did you have a dental problem in the last 6 months where you did not have access to dental care?: No Was dental information given to patient?: Patient has dentist [facility] Medical History Seroma of skin or subcutaneous tissue after non-dermatologic procedure Postprocedural seroma of skin and subcutaneous tissue following other procedure Anemia Sleep apnea Hx of radiation therapy History of chemotherapy Mass of thigh Subcutaneous mass of left lower extremity Diverticular disease Depression Obesity (BMI 30-39.9) Chronic lymphocytic leukemia Plantar fasciitis Actinic keratosis Osteoarthritis Elevated PSA 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) Hypercholesterolemia HTN (hypertension) Prostate cancer Surgical History H/O colonoscopy H/O removal of cyst Hx of biopsy History of knee replacement procedure of left knee H/O toe surgery H/O submandibular gland removal H/O arthroscopic knee surgery Hx of cholecystectomy Family History Mother Cardiac disease Father Cirrhosis of liver Sister Neuropathy Hypertension Other No family history of cancer Social History Household Members: Spouse Housing: House Are you a primary customer care coordinator to a significant other at home: No Do you presently have visiting nurse or other home services: No Alcohol intake: former Comment: COUNTS CORRECT Patient Tobacco Use Status: Never used Tobacco e-Cigarette/Vaping Use: Never Used Second Hand Smoke Exposure: No Advance Directives Date on File: 09/01/20 service: Yes Current occupational status: retired Current occupation: [employer] Cognitive needs: Yes (walker/cane) Hearing needs: No Vision needs: Yes (glasses) Questionnaire PHQ-9 Over the last 2 weeks, how often have you been bothered by any of the following problems? 1. Little interest or pleasure in doing things: not at all 2. Feeling down, depressed, or hopeless: not at all 3. Trouble falling or staying asleep, or sleeping too much: not at all 4. Feeling tired or having little energy: not at all 5. Poor appetite or overeating: not at all 6. Feeling bad about yourself - or that you are a failure or have let yourself or your family down: not at all 7. Trouble concentrating on things, such as reading the newspaper or watching television: not at all 8. Moving or speaking so slowly that other people could have noticed. Or the opposite - being so fidgety or restless that you have been moving around a lot more than usual: not at all 9. Thoughts that you would be better off or of hurting yourself in some way: not at all Total score: 0 Depression Screening Interpretation: Negative Depression Screening Done: Yes 26855 - PHQ-9 Billing: Yes Source: Developed by Drs. James Paulino, Mimi Lezama, Andrae Olivera and colleagues, with an educational farooq from [employer]. Thrive Questionnaire Date Thrive assessed: 11/09/24 I am a: Patient What is your living situation today?: I choose not to answer this question Within the past 12 months, did the food you bought not last and you didn't have the money to get more?: I choose not to answer this question Within the past 12 months, did you worry whether your food would run out before you got money to buy more?: I choose not to answer this question Do you have trouble paying for medicines?: No Do you have trouble getting transportation to medical appointments?: No THRIVE Score: 0 AUDIT C Alcohol Use Questionnaire (AUDIT-C) 1. How often do you have a drink containing alcohol?: Never 3. How often do you have six or more drinks on one occasion?: Never Total Score: 0 LUBA-7 AMB Questionnaire LUBA-7 Date LUBA - 7 assessed: 11/09/24 Feeling nervous, anxious, or on edge: 0 = Not at all Not being able to stop or control worryin = Not at all Worrying too much about different things: 0 = Not at all Trouble relaxin = Not at all Being so restless that it is hard to sit still: 0 = Not at all Becoming easily annoyed or irritable: 0 = Not at all Feeling afraid as if something awful might happen: 0 = Not at all Total LUBA-7 score (0-4 normal; 5-9 mild; 10-14 moderate; 15-21 severe): 0 Source: Developed by Drs. James Paulino, Mimi Lezama, Andrae Olivera and colleagues, with an educational farooq from [employer]. LUBA-7 Assessment Billing LUBA-7 Assessment Tool: LUBA-7 Assessment 26933 Review of Systems Const Denies poor appetite and Denies weakness Eyes Denies no additional complaints ENT Reports Normal hearing present, Denies dizziness, Denies nasal congestion, Denies tinnitus and Denies sore throat Card Denies chest pain, Denies syncope, Denies rapid heart rate and Denies dyspnea Resp Denies cough and Denies dyspnea GI Denies change in stool character, Reports constipation, Denies diarrhea, Denies nausea and Denies vomiting Denies dysuria and Denies urinary frequency Neuro Reports Normal hearing present, Denies confusion, Denies dizziness, Denies syncope and Denies weakness Psych Denies confusion Physical exam (Primary Care) Vital Signs: Last Vital Signs Temp 97.3 F 11/09/24 10:41 Pulse 99 11/09/24 10:41 BP 178/94 H 11/09/24 10:41 Pulse Ox 94 11/09/24 10:41 Oxygen Delivery Method Room Air 11/09/24 10:41 BMI result Body Mass Index 46.5 Tobacco/Smoking Status: Tobacco use Status Tobacco use date assessed 11/09/24 11/09/24 10:46 Patient Tobacco Use Status Never used Tobacco 11/09/24 10:46 e-Cigarette/Vaping Use Never Used 11/09/24 10:46 PHQ-9: PHQ-9 Score PHQ-9: Total score 0 11/09/24 11:49 Depression Screening Interpretation: Negative Thrive Assessment: Date of Thrive Assessment Date Thrive assessed 11/09/24 11/09/24 10:46 Const General: No confusion Orientation/consciousness: No confusion HENMT Head: Yes normocephalic Ears: external ears normal and TM's normal bilaterally Face and sinus: Yes normal facial exam Mouth: moist mucous membranes Throat: Yes tonsils normal Eyes Conjunctivae: conjunctivae normal Pupils: Equal, round and reactive pupils present and Pupil accommodation reflex normal Direct Ophthalmoscopy: normal light reflex Neck Neck: No lymphadenopathy Thyroid: Thyroid normal Chest Chest palpation & inspection: normal inspection of the chest Resp Effort & Inspection: normal respiratory effort and no audible wheezes Auscultation: clear to auscultation bilaterally, no crackles, no wheezes and lung sounds not diminished Cardio Rate: regular rate Rhythm: regular rhythm Peripheral pulses: radial pulses present and dorsalis pedis present GI Palpation (GI): no masses Auscultation: normal bowel sounds and normoactive bowel sounds Rectal Exam - Male: Yes deferred Skin General skin exam: no rashes or lesions noted Rashes: no rashes Neuro General: No confusion Cranial nerves: Yes Equal, round and reactive pupils present and Yes Normal hearing present Cognition (Neuro): normal cognition Gait exam (Neuro): Normal gait present Motor exam (neuro): 5/5 motor strength present throughout Deep tendon reflexes (DTR's): Right brachioradialis reflex intensity grade: 2+, Left brachioradialis reflex intensity grade: 2+, Right patellar reflex intensity grade: 2+ and Left patellar reflex intensity grade: 2+ Extrem General: No edema Coding Level of Care Code Est Pt Prev Care >65y(41467) Diagnoses Annual physical exam Z00.00 Prostate cancer C61 Chronic lymphocytic leukemia C91.10 Morbid obesity E66.01 Impaired fasting blood sugar R73.01 Hypercholesterolemia E78.00 Peripheral vascular disease I73.9 Additional Codes LUBA-7 Assessment Billing - LUBA-7 Assessment Tool: LUBA-7 Assessment 17849 ([id number]) PHQ-9 - 12225 - PHQ-9 Billing: Yes ([id number]) Assessment & Plan Assessment & Plan (1) Annual physical exam: Code(s): Z00.00 - Encounter for general adult medical examination without abnormal findings Category: Medical Plan: Patient is advised to eat healthy, keep well hydrated, keep active and have adequate sleep. (2) Prostate cancer: Comment: January [address] Dr. Gu[address] and Dr. baires hormonal and radiation therapy with gold seed placement May 2016 Code(s): C61 - Malignant neoplasm of prostate Category: Medical Plan: Continue to follow-up with urology (3) Chronic lymphocytic leukemia: Comment: August 2013 flow cytometry, WBC 2 0 0 a Code(s): C91.10 - Chronic lymphocytic leukemia of B-cell type not having achieved remission Category: Medical Plan: Continue to follow-up with Hematology-Oncology (4) Morbid obesity: Code(s): E66.01 - Morbid (severe) obesity due to excess calories Category: Medical Plan: Diet and exercise (5) Impaired fasting blood sugar: Code(s): R73.01 - Impaired fasting glucose Category: Medical Plan: Decrease the amount of carbohydrate intake, pasta, bread, rice and potatoes are all sugar and that is aside from all the sweet stuff, remember that fruits are good but they are Sweet also. (6) Hypercholesterolemia: Code(s): E78.00 - Pure hypercholesterolemia, unspecified Category: Medical Plan: Avoid fried foods, chicken skin, eggs, butter margarine, pastries and meat. Be it pork or beef they have a lot of cholesterol LDL goal of less than 130 and triglyceride of less than 150 (7) Peripheral vascular disease: Code(s): I73.9 - Peripheral vascular disease, unspecified Category: Medical Plan: When sitting down elevate the legs, exercise, and support stockings Plan History of Present Illness The patient is a 79-year-old male presenting for a physical examination and follow-up on chronic conditions. The patient has a history of chronic lymphocytic leukemia diagnosed in 2013 and prostate cancer diagnosed in 2015. He underwent a prostate biopsy in December 2023, which confirmed the presence of prostate cancer. He is currently on chemotherapy and follows up with hematology oncology. The patient has hypercholesterolemia and is managing it with dietary modifications. His LDL cholesterol is currently at 89 mg/dL, which is below the target of 130 mg/dL. The patient has a history of peripheral vascular disease and reports low exercise tolerance. He experiences lymphedema and discoloration, which he attributes to medication use. He was treated for a urinary tract infection in January 2024 and has a history of radiation cystitis. He follows up with urology for ongoing management. Recent blood work in October showed anemia with hemoglobin levels of 13 g/dL and hematocrit of 40.5%, along with leukocytosis at 12.1 x 10^9/L. His blood sugar was elevated, but hemoglobin A1c was normal, indicating possible dietary influence. The patient denies alcohol and tobacco use and reports no new diagnoses or surgeries since the last visit. He experiences occasional dysphagia with dry foods but denies any chest pain, dyspnea, or gastrointestinal issues. Health Maintenance - Vaccinations: Up-to-date with shingles, tetanus, and RSV vaccines - Preventative care: Regular follow-ups with urology and hematology oncology - Lifestyle: Dietary modifications for cholesterol management, exercise recommendations Social History - Substance Use: Denies alcohol and tobacco use - Exercise: Reports low exercise tolerance due to peripheral vascular disease - Nutrition: Follows dietary modifications for cholesterol management Review of Systems - General: Denies fever, chills, or weight loss - Cardiovascular: Denies chest pain or palpitations - Respiratory: Denies dyspnea or cough - Gastrointestinal: Reports occasional dysphagia with dry foods, denies nausea, vomiting, or diarrhea - Genitourinary: Reports nocturia three times per night, denies dysuria - Neurological: Denies dizziness or syncope Physical Exam General: Cooperative, healthy appearing, comfortable, no acute distress and well developed Orientation: Patient oriented x3 Limitations: No limitations Head: Normal to inspection Ears: Hearing grossly normal bilaterally Nose: Normal external nose present Face and sinus: Normal facial exam Eyes: Appearance normal, both eyes and all related structures Neck: Normal visual inspection and Yes full ROM Respiratory: Normal respiratory effort and able to speak in complete sentences. Clear to auscultation bilaterally Cardiovascular: Regular rate and rhythm. Normal S1 and S2 GI: Normal to inspection. Soft to palpation and nontender Skin: No rashes or lesions noted Neuro: Patient oriented x3 Extremities: Normal to inspection Results - Labs: Anemia with hemoglobin 13 g/dL, hematocrit 40.5%, leukocytosis at 12.1 x 10^9/L - Labs: Elevated blood sugar, normal hemoglobin A1c - Labs: LDL cholesterol 89 mg/dL, triglycerides 157 mg/dL Plan The patient will continue to follow up with urology and hematology oncology for ongoing management of prostate cancer and chronic lymphocytic leukemia. Dietary modifications and exercise are recommended to manage hypercholesterolemia and peripheral vascular disease. The patient is advised to monitor blood pressure at home due to elevated readings during the visit. Vaccinations are up-to-date, and no further pneumonia shots are required at this time. The patient is considering weight management medication, with discussions on potential side effects and insurance coverage. Patient was informed and verbally consented to the use of an ambient scribe for clinic note documentation during this visit. Discussion Notes During the visit, we discussed the patient's ongoing management for prostate cancer and chronic lymphocytic leukemia, emphasizing the importance of regular follow-ups with specialists. We reviewed the patient's blood pressure, which was elevated, and advised home monitoring. The patient expressed interest in weight management medication, and we discussed potential side effects, insurance coverage, and the lack of long-term data. We confirmed that the patient's vaccinations are current, and no additional pneumonia shots are needed. Patient Instructions - Continue follow-up appointments with urology and hematology oncology. - Monitor blood pressure at home regularly. - Maintain dietary modifications and exercise to manage cholesterol and vascular health. - Consider weight management medication, discuss with insurance for coverage. - Ensure vaccinations are up-to-date, no further pneumonia shots needed. Medications: New tirzepatide (weight loss) (Zepbound) for 4 weeks 2.5 mg (0.5 mL) subcut QWEEK 2 mL 3RF E66.01 - Morbid (severe) obesity due to excess calories
== END 2024-11-09 12:11 | disposition home or self-care (01) ==
LOC: HO.HMCH 10:34
PROVIDERS: PCP Internal Medicine; Visit Provider Internal Medicine
DX: Z00.00 Encounter for general adult medical examination without abnormal findings (principal); C61 Malignant neoplasm of prostate; C91.10 Chronic lymphocytic leukemia of B-cell type not having achieved remission; E66.01 Morbid (severe) obesity due to excess calories; Z68.42 Body mass index [BMI] 45.0-49.9, adult; R73.01 Impaired fasting glucose; E78.00 Pure hypercholesterolemia, unspecified; I73.9 Peripheral vascular disease, unspecified

== ENCOUNTER → 2024-11-09 10:34 | Outpatient (BNVA) | payer MEDICARE, SELFPAY | PROVIDERS: PCP Internal Medicine; Visit Provider Internal Medicine | DX: Z00.00 Encounter for general adult medical examination without abnormal findings (principal); C61 Malignant neoplasm of prostate; C91.10 Chronic lymphocytic leukemia of B-cell type not having achieved remission; E66.01 Morbid (severe) obesity due to excess calories; R73.01 Impaired fasting glucose; E78.00 Pure hypercholesterolemia, unspecified; I73.9 Peripheral vascular disease, unspecified; Z68.42 Body mass index [BMI] 45.0-49.9, adult | CPT/HCPCS: 96127; 99397 ==